=== PATIENT | male | born 1980 | race Caucasian/White ===

== ENCOUNTER 2016-07-05 08:09 | Emergency (ER) | payer OTHER ==
[2016-07-05] MEDS ORDERED: ONDANSETRON 4MG/2ML VIAL (J2405) As Ordered ONE (09:03)
[2016-07-05] MEDS ORDERED: KETOROLAC 30 MG/ML VIAL (J1885) As Ordered ONE (09:03)
[2016-07-05 09:32] LABS: BASO % 1.3 % (0.0-1.0); EOS % 1.2 % (0.0-3.0); LARGE UNSTAINED CELL # 0.1 K/mm3 (0.0-0.4); LYMPH # 1.3 K/mm3 (1.5-4.5); LYMPH % 33.5 % (24.0-44.0); MEAN CORPUSCULAR HEMOGLOBIN 32.4 pg (27.0-33.0); MEAN CORPUSCULAR HGB CONC 34.8 g/dl (32.0-36.5); MEAN CORPUSCULAR VOLUME 93.1 fl (80.0-96.0); MONO # 0.3 K/mm3 (0.0-0.8); MONO % 7.9 % (0.0-5.0); NEUTROPHILS # 2.1 K/mm3 (1.8-7.7); PLATELET COUNT, AUTOMATED 236 k/mm3 (150-450); RED CELL DISTRIBUTION WIDTH 13.8 % (11.5-14.5); WHITE BLOOD COUNT 3.9 K/mm3 (4.0-10.0)
[2016-07-05 10:18] LABS: ALBUMIN 3.7 GM/DL (3.2-5.2); ALKALINE PHOSPHATASE 232 U/L (45-117); ALT/SGPT 48 U/L (12-78); ANION GAP 12 MEQ/L (8-16); AST/SGOT 62 U/L (15-37); BILIRUBIN,DIRECT 0.3 MG/DL (0.0-0.2); BILIRUBIN,TOTAL 0.8 MG/DL (0.2-1.0); BLOOD UREA NITROGEN 13 MG/DL (7-18); CALCIUM LEVEL 8.1 MG/DL (8.5-10.1); CARBON DIOXIDE LEVEL 26 MEQ/L (21-32); CHLORIDE LEVEL 102 MEQ/L (98-107); CREATININE FOR GFR 0.72 MG/DL (0.70-1.30); GLOMERULAR FILTRATION RATE > 60.0 (>60); GLUCOSE, FASTING 96 MG/DL (70-105); POTASSIUM SERUM 3.4 MEQ/L (3.5-5.1); SODIUM LEVEL 140 MEQ/L (136-145); TOTAL PROTEIN 7.4 GM/DL (6.4-8.2)
--- NOTE | 2016-07-05 10:36 | EDDOCDS ---
Physician Documentation [facility] Name: Bashir Reed Age: 35 yrs Sex: Male : 1980 Arrival Date: 07/05/2016 Time: 08:09 Bed I1 / M1 Private MD: Cristal Fernandez C Disposition: 07/05/16 10:25 Discharged to Home/Self Care. Impression: Nausea and vomiting, Diarrhea, unspecified. - Condition is Stable. - Discharge Instructions: Food Choices to Help Relieve Diarrhea, Adult, Diarrhea, Nausea and Vomiting. - Prescriptions for ZOFRAN ODT 4 mg - dissolve 1 tablet by ORAL route 4 times per day As needed do not chew, do not swallow whole; 10 tablet. - Medication Reconciliation form. - Follow up: Emergency Department; When: As needed. Follow up: Cristal Fernandez; When: Call to arrange an appointment; Reason: Wound/Symptom Recheck, Recheck today's complaints, Worsening of conditions, Continuance of care. - Problem is an ongoing problem. - Symptoms have improved. Historical: - Allergies: Codeine Sulfate; - Home Meds: 1. Xanax 0.5 mg Oral tab twice a day - PMHx: Anxiety; Lopez's Esophagus; - PSHx: none; - Social history: Smoking status: Patient uses tobacco products, light tobacco smoker. No barriers to communication noted, The patient speaks fluent Sami, Speaks appropriately for age. - : The pt / caregiver states he / she is not on anticoagulants. Home medication list is obtained from the patient. - Exposure Risk Screening:: None identified. Vital Signs: 07/05 08:16 BP 161 / 109; Pulse 112; Resp 16; Temp 98.7(TE); Pulse Ox 96% on R/A; Weight 68.95 kg / mlb1 152.01 lbs (R); Height 5 ft. 11 in. (180.34 cm) (R); Pain 8/10; 10:33 BP 130 / 90; Pulse 76; Resp 16; Temp 97.3; jmk 08:16 Body Mass Index 21.20 (68.95 kg, 180.34 cm) mlb1 MDM: 08:52 NS 0.9% 1000 ml IV at bolus once ordered. cc10 08:52 Ondansetron 4 mg IVP once ordered. cc10 08:52 ketorolac 30 mg IVP once ordered. cc10 08:52 IV Saline Lock ordered. cc10 08:52 Undress patient appropriately for examination ordered. cc10 08:53 Basic Metabolic Profile Ordered. EDMS 08:53 CBC with Diff Ordered. EDMS 08:53 Lipase Ordered. EDMS 08:53 Liver Profile Ordered. EDMS 08:53 Urinalysis Ordered. EDMS 08:53 NOTHING BY MOUTH+DIET ordered. EDMS 09:54 Financial registration complete. mpb 09:54 [facility] Payment Agreement was scanned into [employer] and attached to record. mpb 10:18 CBC with Diff Reviewed. cc10 10:18 Urinalysis Reviewed. cc10 10:21 Basic Metabolic Profile Reviewed. cc10 10:21 Liver Profile Reviewed. cc10 10:21 Lipase Reviewed. cc10 Administered Medications: 09:08 Drug: NS 0.9% 1000 ml Route: IV; Rate: bolus; Site: left antecubital; k 09:55 Follow up: IV Status: Completed infusion; IV Intake: 1000ml [facility] 09:08 Drug: Ondansetron 4 mg Route: IVP; Site: left antecubital; [facility] 09:40 Follow up: Response: Nausea is resolved [facility] 09:09 Drug: ketorolac 30 mg [ketorolac 30 mg/mL (1 mL) injection solution (1 mL)] Route: IVP; [facility] Site: left antecubital; 09:40 Follow up: Response: Pain is decreased [facility] Signatures: [facility] Leonel Cottrell RN RN jmk Barney, Michael B, RN RN mlb1 Nathaniel Garland PA-C PALorie cc10 Bashir Josue Reg Reg mpb The chart was reviewed and I authenticate all verbal orders and agree with the evaluation and treatment provided.Attachments: 09:54 [facility] Payment Agreement mpb MTDD
--- NOTE | 2016-07-05 10:36 | EDDOCDS ---
Nurse's Notes [facility] Name: Bashir Reed Age: 35 yrs Sex: Male : 1980 Arrival Date: 07/05/2016 Time: 08:09 Bed I1 / M1 Private MD: Cristal Fernandez C Diagnosis: Nausea and vomiting;Diarrhea, unspecified Presentation: 07/05 08:13 Presenting complaint: Patient states: Epigastric pain with N/V began Sunday. Risk mlb1 factors: the patient reports not having a history of previous torsion. Adult Sepsis Screening: The patient does not have new or worsening altered mentation. Patient's respiratory rate is less than 22. Systolic blood pressure is greater than 100. Patient has a qSOFA score of 0- Negative Sepsis Screen. Suicide/Homicide risk assessment- the patient denies having any suicidal and/or homicidal ideations and does not present with any other emotional, behavioral or mental health complaints. Status: Patient is not a tanker service attendant or dependent. Transition of care: patient was not received from another setting of care. 08:13 Acuity: ISABELA Level 3 mlb1 08:13 Method Of Arrival: Walkin/Carried/Asstd mlb1 Triage Assessment: 08:16 General: Appears in no apparent distress, Behavior is appropriate for age, cooperative. mlb1 Pain: Location: epigastric area Pain currently is 8 out of 10 on a pain scale. HIV screening NA for this visit Offered previously. GI: Reports nausea, vomiting. Historical: - Allergies: Codeine Sulfate; - Home Meds: 1. Xanax 0.5 mg Oral tab twice a day - PMHx: Anxiety; Lopez's Esophagus; - PSHx: none; - Social history: Smoking status: Patient uses tobacco products, light tobacco smoker. No barriers to communication noted, The patient speaks fluent Malaysian, Speaks appropriately for age. - : The pt / caregiver states he / she is not on anticoagulants. Home medication list is obtained from the patient. - Exposure Risk Screening:: None identified. Screenin:09 Screening information is obtained from the patient. Fall risk: No risks identified. jmk Assistance ADL's: requires no assistance with activities of daily living. Abuse/DV Screen: The patient / caregiver reports he/she is: not in a situation that causes fear, pain or injury. Nutritional screening: No deficits noted. Advance Directives: Currently, there is no health care proxy. There is no active DNR order. There is no living will. There is no Power of Manager Patient. Advance directive information has not previously been placed in an [facility] medical record. Further advance directive information is declined. home support is adequate. Assessment: 09:09 General: Appears in no apparent distress, face slightly flushed. skin warm and dry jmk color satisfactory. Moist pink oral mucosa. Abd soft and non distended with bowel sounds present x 4. Increased pain with palpation about umbilicus.. GI: Abdomen is flat, non- distended Bowel sounds present X 4 quads. Abd is soft X 4 quads Abd is tender to palpation in umbilical area. 09:40 General: Appears. k 10:32 General: Appears without nausea . reports less pain clear liquids encouraged. cautioned k regarding blood pressure. receptive to discharge. Vital Signs: 08:16 BP 161 / 109; Pulse 112; Resp 16; Temp 98.7(TE); Pulse Ox 96% on R/A; Weight 68.95 kg ml (R); Height 5 ft. 11 in. (180.34 cm) (R); Pain 8/10; 10:33 BP 130 / 90; Pulse 76; Resp 16; Temp 97.3; jmk 08:16 Body Mass Index 21.20 (68.95 kg, 180.34 cm) [facility] Vitals: 08:16 Log In Time: July 05, 2016 at 08:05. b1 ED Course: 08:11 Patient visited by David Colon. mm15 08:11 Cristal Fernandez is Private Physician. mm15 08:11 Patient moved to Waiting mm15 08:13 Patient visited by Basihr Hogue, RN. mlb1 08:14 Triage Initiated mlb1 08:17 Patient visited by Bashir Hogue, RN. mlb1 08:21 Patient moved to I1 / M1 mlb1 08:42 Nathaniel Garland PA-C is PHCP. cc10 08:42 Mauricio Huerta MD is Attending Physician. cc10 08:47 Patient visited by Nathaniel Garland PA-C. cc10 08:47 Patient visited by Nathaniel Garland PA-C. cc10 09:07 Basic Metabolic Profile Sent. jmk 09:07 CBC with Diff Sent. jmk 09:07 Lipase Sent. jmk 09:07 Liver Profile Sent. jmk 09:07 Urinalysis Sent. jmk 09:09 The patient / caregiver is instructed regarding the plan of care and ED course. jmk 09:09 Inserted saline lock: 20 gauge in left antecubital area. jmk 09:54 [facility] [place] Agreement was scanned into [employer] and attached to record. mpb 10:25 Cristal Fernandez is Referral Physician. cc10 10:33 Discontinued lock intact, bleeding controlled, pressure dressing applied, No jmk redness/swelling at site. No procedures done that require assistance. Administered Medications: 09:08 Drug: NS 0.9% 1000 ml Route: IV; Rate: bolus; Site: left antecubital; jmk 09:55 Follow up: IV Status: Completed infusion; IV Intake: 1000ml k 09:08 Drug: Ondansetron 4 mg Route: IVP; Site: left antecubital; k 09:40 Follow up: Response: Nausea is resolved jmk 09:09 Drug: ketorolac 30 mg [ketorolac 30 mg/mL (1 mL) injection solution (1 mL)] Route: IVP; [facility] Site: left antecubital; 09:40 Follow up: Response: Pain is decreased jmk Intake: 09:55 IV: 1000.00ml; Total: 1000.00ml. [facility] Order Results: Lab Order: Basic Metabolic Profile; SPEC'M 07/05/16 09:52 Test: GLUCOSE, FASTING; Value: 96; Range: 70-105; Units: MG/DL; Status: F Test: BLOOD UREA NITROGEN; Value: 13; Range: 7-18; Units: MG/DL; Status: F Test: CREATININE FOR GFR; Value: 0.72; Range: 0.70-1.30; Units: MG/DL; Status: F Test: GLOMERULAR FILTRATION RATE; Value: > 60.0; Range: >60; Status: F Test: SODIUM LEVEL; Value: 140; Range: 136-145; Units: MEQ/L; Status: F Test: POTASSIUM SERUM; Value: 3.4; Range: 3.5-5.1; Abnormal: Below low normal; Units: MEQ/L; Status: F Test: CHLORIDE LEVEL; Value: 102; Range: 98-107; Units: MEQ/L; Status: F Test: CARBON DIOXIDE LEVEL; Value: 26; Range: 21-32; Units: MEQ/L; Status: F Test: ANION GAP; Value: 12; Range: 8-16; Units: MEQ/L; Status: F Test: CALCIUM LEVEL; Value: 8.1; Range: 8.5-10.1; Abnormal: Below low normal; Units: MG/DL; Status: F Test Note: ; Units are mL/min/1.73 m2 Chronic Kidney Disease Staging per NKF: Stage I & II GFR >=60 Normal to Mildly Decreased Stage III GFR 30-59 Moderately Decreased Stage IV GFR 15-29 Severely Decreased Stage V GFR <15 Very Little GFR Left ESRD GFR <15 on OUT PATIENT THERAPIST Lab Order: CBC with Diff; SPEC'M 07/05/16 09:00 Test: WHITE BLOOD COUNT; Value: 3.9; Range: 4.0-10.0; Abnormal: Below low normal; Units: K/mm3; Status: F Test: RED BLOOD COUNT; Value: 4.58; Range: 4.30-6.10; Units: M/mm3; Status: F Test: HEMOGLOBIN; Value: 14.8; Range: 14.0-18.0; Units: g/dl; Status: F Test: HEMATOCRIT; Value: 42.6; Range: 42.0-52.0; Units: %; Status: F Test: MEAN CORPUSCULAR VOLUME; Value: 93.1; Range: 80.0-96.0; Units: fl; Status: F Test: MEAN CORPUSCULAR HEMOGLOBIN; Value: 32.4; Range: 27.0-33.0; Units: pg; Status: F Test: MEAN CORPUSCULAR HGB CONC; Value: 34.8; Range: 32.0-36.5; Units: g/dl; Status: F Test: RED CELL DISTRIBUTION WIDTH; Value: 13.8; Range: 11.5-14.5; Units: %; Status: F Test: PLATELET COUNT, AUTOMATED; Value: 236; Range: 150-450; Units: k/mm3; Status: F Test: NEUTROPHILS %; Value: 53.0; Range: 36.0-66.0; Units: %; Status: F Test: LYMPH %; Value: 33.5; Range: 24.0-44.0; Units: %; Status: F Test: MONO %; Value: 7.9; Range: 0.0-5.0; Abnormal: Above high normal; Units: %; Status: F Test: EOS %; Value: 1.2; Range: 0.0-3.0; Units: %; Status: F Test: BASO %; Value: 1.3; Range: 0.0-1.0; Abnormal: Above high normal; Units: %; Status: F Test: LARGE UNSTAINED CELL %; Value: 3.0; Range: 0.0-4.0; Units: %; Status: F Test: NEUTROPHILS #; Value: 2.1; Range: 1.8-7.7; Units: K/mm3; Status: F Test: LYMPH #; Value: 1.3; Range: 1.5-4.5; Abnormal: Below low normal; Units: K/mm3; Status: F Test: MONO #; Value: 0.3; Range: 0.0-0.8; Units: K/mm3; Status: F Test: EOS #; Value: 0.0; Range: 0.0-0.50; Units: K/mm3; Status: F Test: BASO #; Value: 0.0; Range: 0.0-0.2; Units: K/mm3; Status: F Test: LARGE UNSTAINED CELL #; Value: 0.1; Range: 0.0-0.4; Units: K/mm3; Status: F Lab Order: Lipase; SPEC'M 07/05/16 09:52 Test: LIPASE; Value: 204; Range: 73-393; Units: U/L; Status: F Lab Order: Liver Profile; SPEC'M 07/05/16 09:52 Test: AST/SGOT; Value: 62; Range: 15-37; Abnormal: Above high normal; Units: U/L; Status: F Test: ALT/SGPT; Value: 48; Range: 12-78; Units: U/L; Status: F Test: ALKALINE PHOSPHATASE; Value: 232; Range: 45-117; Abnormal: Above high normal; Units: U/L; Status: F Test: BILIRUBIN,TOTAL; Value: 0.8; Range: 0.2-1.0; Units: MG/DL; Status: F Test: BILIRUBIN,DIRECT; Value: 0.3; Range: 0.0-0.2; Abnormal: Above high normal; Units: MG/DL; Status: F Test: TOTAL PROTEIN; Value: 7.4; Range: 6.4-8.2; Units: GM/DL; Status: F Test: ALBUMIN; Value: 3.7; Range: 3.2-5.2; Units: GM/DL; Status: F Test: ALBUMIN/GLOBULIN RATIO; Value: 1.00; Range: 1.00-1.93; Status: F Lab Order: Urinalysis; SPEC'M 07/05/16 09:00 Test: APPEARANCE, URINE; Value: HAZY; Range: CLEAR; Status: F Test: COLOR, URINE; Value: NEETU; Range: YELLOW; Status: F Test: PH,URINE; Value: 5.0; Range: 5.0-9.0; Units: UNITS; Status: F Test: SPECIFIC GRAVITY URINE AUTO; Value: 1.031; Range: 1.002-1.035; Status: F Test: PROTEIN, URINE AUTO; Value: 2+; Range: NEGATIVE; Abnormal: Above high normal; Units: mg/dL; Status: F Test: GLUCOSE, URINE (UA) AUTO; Value: NEGATIVE; Range: NEGATIVE; Units: mg/dL; Status: F Test: KETONE, URINE AUTO; Value: TRACE; Range: NEGATIVE; Abnormal: Above high normal; Units: mg/dL; Status: F Test: UROBILINOGEN, URINE AUTO; Value: 0.2; Range: 0.0-2.0; Units: mg/dL; Status: F Test: BILIRUBIN, URINE AUTO; Value: 1+; Range: NEGATIVE; Abnormal: Above high normal; Status: F Test: NITRITE, URINE AUTO; Value: NEGATIVE; Range: NEGATIVE; Status: F Test: LEUKOCYTE ESTERASE, URINE AUTO; Value: NEGATIVE; Range: NEGATIVE; Status: F Test: BLOOD, URINE BLOOD; Value: NEGATIVE; Range: NEGATIVE; Status: F Test: WBC, URINE AUTO; Value: 2; Range: 0-3; Units: /HPF; Status: F Test: RBC, URINE AUTO; Value: 1; Range: 0-3; Units: /HPF; Status: F Test: BACTERIA, URINE AUTO; Value: NEGATIVE; Range: NEGATIVE; Status: F Test: SQUAMOUS EPITHELIAL CELL UR AU; Value: 0; Range: 0-6; Units: /HPF; Status: F Test: MUCUS, URINE; Value: MODERATE; Range: NEGATIVE; Status: F Test: HYALINE CAST, URINE AUTO; Value: 0; Range: 0-1; Units: /LPF; Status: F Test: AMORPHOUS SEDIMENT; Value: SMALL; Range: NEGATIVE; Abnormal: Above high normal; Status: F Outcome: 10:25 Discharge ordered by Provider. cc10 10:33 Discharge Assessment: Patient awake, alert and oriented x 3. No cognitive and/or k functional deficits noted. Patient verbalized understanding of disposition instructions. patient administered narcotics - no. The following High Risk Discharge criteria are identified: None. Discharged to home ambulatory. Condition: good. Discharge instructions given to patient, Instructed on discharge instructions, follow up and referral plans. medication usage, Demonstrated understanding of instructions, medications, Pt was receptive of discharge instructions/ teaching. Prescriptions given X 1, Work note provided to patient. No special radiology studies were completed. Property :Personal belongings accompany Pt. 10:35 Patient left the ED. [facility] Signatures: Leonel Cottrell,RN RN Bashir Miranda RN RN mlDavid Hernandez mm15 Nathaniel Garland PA-C PALorie cc10 Bashir Josue, Reg Reg mpb MTDD
--- NOTE | 2016-07-07 11:36 | EDDOCDS ---
Physician Documentation [facility] Name: Bashir Reed Age: 35 yrs Sex: Male : 1980 Arrival Date: 07/05/2016 Time: 08:09 Bed I1 / M1 Private MD: Cristal Fernandez C Disposition: 07/05/16 10:25 Discharged to Home/Self Care. Impression: Nausea and vomiting, Diarrhea, unspecified. - Condition is Stable. - Discharge Instructions: Food Choices to Help Relieve Diarrhea, Adult, Diarrhea, Nausea and Vomiting. - Prescriptions for ZOFRAN ODT 4 mg - dissolve 1 tablet by ORAL route 4 times per day As needed do not chew, do not swallow whole; 10 tablet. - Medication Reconciliation form. - Follow up: Emergency Department; When: As needed. Follow up: Cristal Fernandez; When: Call to arrange an appointment; Reason: Wound/Symptom Recheck, Recheck today's complaints, Worsening of conditions, Continuance of care. - Problem is an ongoing problem. - Symptoms have improved. Historical: - Allergies: Codeine Sulfate; - Home Meds: 1. Xanax 0.5 mg Oral tab twice a day - PMHx: Anxiety; Lopez's Esophagus; - PSHx: none; - Social history: Smoking status: Patient uses tobacco products, light tobacco smoker. No barriers to communication noted, The patient speaks fluent Syriac, Speaks appropriately for age. - : The pt / caregiver states he / she is not on anticoagulants. Home medication list is obtained from the patient. - Exposure Risk Screening:: None identified. Vital Signs: 07/05 08:16 BP 161 / 109; Pulse 112; Resp 16; Temp 98.7(TE); Pulse Ox 96% on R/A; Weight 68.95 kg / mlb1 152.01 lbs (R); Height 5 ft. 11 in. (180.34 cm) (R); Pain 8/10; 10:33 BP 130 / 90; Pulse 76; Resp 16; Temp 97.3; jmk 08:16 Body Mass Index 21.20 (68.95 kg, 180.34 cm) mlb1 MDM: 08:52 NS 0.9% 1000 ml IV at bolus once ordered. cc10 08:52 Ondansetron 4 mg IVP once ordered. cc10 08:52 ketorolac 30 mg IVP once ordered. cc10 08:52 IV Saline Lock ordered. cc10 08:52 Undress patient appropriately for examination ordered. cc10 08:53 Basic Metabolic Profile Ordered. EDMS 08:53 CBC with Diff Ordered. EDMS 08:53 Lipase Ordered. EDMS 08:53 Liver Profile Ordered. EDMS 08:53 Urinalysis Ordered. EDMS 08:53 NOTHING BY MOUTH+DIET ordered. EDMS 09:54 Financial registration complete. b 09:54 [facility] Payment Agreement was scanned into [employer] and attached to record. mpb 10:18 CBC with Diff Reviewed. cc10 10:18 Urinalysis Reviewed. cc10 10:21 Basic Metabolic Profile Reviewed. cc10 10:21 Liver Profile Reviewed. cc10 10:21 Lipase Reviewed. cc 14:03 T-Sheet-- Draft Copy was scanned into [employer] and attached to record. gb Administered Medications: 09:08 Drug: NS 0.9% 1000 ml Route: IV; Rate: bolus; Site: left antecubital; [facility] 09:55 Follow up: IV Status: Completed infusion; IV Intake: 1000ml [facility] 09:08 Drug: Ondansetron 4 mg Route: IVP; Site: left antecubital; [facility] 09:40 Follow up: Response: Nausea is resolved [facility] 09:09 Drug: ketorolac 30 mg [ketorolac 30 mg/mL (1 mL) injection solution (1 mL)] Route: IVP; [facility] Site: left antecubital; 09:40 Follow up: Response: Pain is decreased [facility] Signatures: Dispatcher [employer] EDKS Leonel Cottrell RN RN Tonya Navarrete, Reg Reg gb Bashir Hogue RN RN mlb1 Nathaniel Garland, PA-C PA-C cc10 Bashir Josue, Reg Reg mpb The chart was reviewed and I authenticate all verbal orders and agree with the evaluation and treatment provided.Attachments: 09:54 [facility] Payment Agreement [facility] 14:03 T-Sheet-- Draft Copy gb Chart Complete MTDD
--- NOTE | 2016-07-07 11:36 | EDDOCDS ---
Physician Documentation [facility] Name: Bashir Reed Age: 35 yrs Sex: Male : 1980 Arrival Date: 07/05/2016 Time: 08:09 Bed I1 / M1 Private MD: Cristal Fernandez C Disposition: 07/05/16 10:25 Discharged to Home/Self Care. Impression: Nausea and vomiting, Diarrhea, unspecified. - Condition is Stable. - Discharge Instructions: Food Choices to Help Relieve Diarrhea, Adult, Diarrhea, Nausea and Vomiting. - Prescriptions for ZOFRAN ODT 4 mg - dissolve 1 tablet by ORAL route 4 times per day As needed do not chew, do not swallow whole; 10 tablet. - Medication Reconciliation form. - Follow up: Emergency Department; When: As needed. Follow up: Cristal Fernandez; When: Call to arrange an appointment; Reason: Wound/Symptom Recheck, Recheck today's complaints, Worsening of conditions, Continuance of care. - Problem is an ongoing problem. - Symptoms have improved. Historical: - Allergies: Codeine Sulfate; - Home Meds: 1. Xanax 0.5 mg Oral tab twice a day - PMHx: Anxiety; Lopez's Esophagus; - PSHx: none; - Social history: Smoking status: Patient uses tobacco products, light tobacco smoker. No barriers to communication noted, The patient speaks fluent Tajik, Speaks appropriately for age. - : The pt / caregiver states he / she is not on anticoagulants. Home medication list is obtained from the patient. - Exposure Risk Screening:: None identified. Vital Signs: 07/05 08:16 BP 161 / 109; Pulse 112; Resp 16; Temp 98.7(TE); Pulse Ox 96% on R/A; Weight 68.95 kg / mlb1 152.01 lbs (R); Height 5 ft. 11 in. (180.34 cm) (R); Pain 8/10; 10:33 BP 130 / 90; Pulse 76; Resp 16; Temp 97.3; jmk 08:16 Body Mass Index 21.20 (68.95 kg, 180.34 cm) mlb1 MDM: 08:52 NS 0.9% 1000 ml IV at bolus once ordered. cc10 08:52 Ondansetron 4 mg IVP once ordered. cc10 08:52 ketorolac 30 mg IVP once ordered. cc10 08:52 IV Saline Lock ordered. cc10 08:52 Undress patient appropriately for examination ordered. cc10 08:53 Basic Metabolic Profile Ordered. EDMS 08:53 CBC with Diff Ordered. EDMS 08:53 Lipase Ordered. EDMS 08:53 Liver Profile Ordered. EDMS 08:53 Urinalysis Ordered. EDMS 08:53 NOTHING BY MOUTH+DIET ordered. EDMS 09:54 Financial registration complete. b 09:54 [facility] Payment Agreement was scanned into [employer] and attached to record. mpb 10:18 CBC with Diff Reviewed. cc10 10:18 Urinalysis Reviewed. cc10 10:21 Basic Metabolic Profile Reviewed. cc10 10:21 Liver Profile Reviewed. cc10 10:21 Lipase Reviewed. cc 14:03 T-Sheet-- Draft Copy was scanned into [employer] and attached to record. gb Administered Medications: 09:08 Drug: NS 0.9% 1000 ml Route: IV; Rate: bolus; Site: left antecubital; [facility] 09:55 Follow up: IV Status: Completed infusion; IV Intake: 1000ml [facility] 09:08 Drug: Ondansetron 4 mg Route: IVP; Site: left antecubital; [facility] 09:40 Follow up: Response: Nausea is resolved [facility] 09:09 Drug: ketorolac 30 mg [ketorolac 30 mg/mL (1 mL) injection solution (1 mL)] Route: IVP; [facility] Site: left antecubital; 09:40 Follow up: Response: Pain is decreased [facility] Signatures: Dispatcher [employer] EDTN Leonel Cottrell RN RN Tonya Navarrete, Reg Reg gb Bashir Hogue RN RN mlb1 Nathaniel Garland, PA-C PA-C cc10 Bashir Josue, Reg Reg mpb The chart was reviewed and I authenticate all verbal orders and agree with the evaluation and treatment provided.Attachments: 09:54 [facility] Payment Agreement [facility] 14:03 T-Sheet-- Draft Copy gb Chart Complete MTDD
--- NOTE | 2016-07-07 11:36 | EDDOCDS ---
Nurse's Notes [facility] Name: Bashir Reed Age: 35 yrs Sex: Male : 1980 Arrival Date: 07/05/2016 Time: 08:09 Bed I1 / M1 Private MD: Cristal Fernandez C Diagnosis: Nausea and vomiting;Diarrhea, unspecified Presentation: 07/05 08:13 Presenting complaint: Patient states: Epigastric pain with N/V began Sunday. Risk mlb1 factors: the patient reports not having a history of previous torsion. Adult Sepsis Screening: The patient does not have new or worsening altered mentation. Patient's respiratory rate is less than 22. Systolic blood pressure is greater than 100. Patient has a qSOFA score of 0- Negative Sepsis Screen. Suicide/Homicide risk assessment- the patient denies having any suicidal and/or homicidal ideations and does not present with any other emotional, behavioral or mental health complaints. Status: Patient is not a servicer or dependent. Transition of care: patient was not received from another setting of care. 08:13 Acuity: ISABELA Level 3 mlb1 08:13 Method Of Arrival: Walkin/Carried/Asstd mlb1 Triage Assessment: 08:16 General: Appears in no apparent distress, Behavior is appropriate for age, cooperative. mlb1 Pain: Location: epigastric area Pain currently is 8 out of 10 on a pain scale. HIV screening NA for this visit Offered previously. GI: Reports nausea, vomiting. Historical: - Allergies: Codeine Sulfate; - Home Meds: 1. Xanax 0.5 mg Oral tab twice a day - PMHx: Anxiety; Lopez's Esophagus; - PSHx: none; - Social history: Smoking status: Patient uses tobacco products, light tobacco smoker. No barriers to communication noted, The patient speaks fluent Niuean, Speaks appropriately for age. - : The pt / caregiver states he / she is not on anticoagulants. Home medication list is obtained from the patient. - Exposure Risk Screening:: None identified. Screenin:09 Screening information is obtained from the patient. Fall risk: No risks identified. jmk Assistance ADL's: requires no assistance with activities of daily living. Abuse/DV Screen: The patient / caregiver reports he/she is: not in a situation that causes fear, pain or injury. Nutritional screening: No deficits noted. Advance Directives: Currently, there is no health care proxy. There is no active DNR order. There is no living will. There is no Power of Jewel Inspector. Advance directive information has not previously been placed in an [facility] medical record. Further advance directive information is declined. home support is adequate. Assessment: 09:09 General: Appears in no apparent distress, face slightly flushed. skin warm and dry jmk color satisfactory. Moist pink oral mucosa. Abd soft and non distended with bowel sounds present x 4. Increased pain with palpation about umbilicus.. GI: Abdomen is flat, non- distended Bowel sounds present X 4 quads. Abd is soft X 4 quads Abd is tender to palpation in umbilical area. 09:40 General: Appears. k 10:32 General: Appears without nausea . reports less pain clear liquids encouraged. cautioned k regarding blood pressure. receptive to discharge. Vital Signs: 08:16 BP 161 / 109; Pulse 112; Resp 16; Temp 98.7(TE); Pulse Ox 96% on R/A; Weight 68.95 kg ml (R); Height 5 ft. 11 in. (180.34 cm) (R); Pain 8/10; 10:33 BP 130 / 90; Pulse 76; Resp 16; Temp 97.3; jmk 08:16 Body Mass Index 21.20 (68.95 kg, 180.34 cm) [facility] Vitals: 08:16 Log In Time: July 05, 2016 at 08:05. b1 ED Course: 08:11 Patient visited by David Colon. mm15 08:11 Cristal Fernandez is Private Physician. mm15 08:11 Patient moved to Waiting mm15 08:13 Patient visited by Bashir Hogue, RN. mlb1 08:14 Triage Initiated mlb1 08:17 Patient visited by Bashir Hogue, RN. mlb1 08:21 Patient moved to I1 / M1 mlb1 08:42 Nathaniel Garland PA-C is PHCP. cc10 08:42 Mauricio Huerta MD is Attending Physician. cc10 08:47 Patient visited by Nathaniel Garland PA-C. cc10 08:47 Patient visited by Nathaniel Garland PA-C. cc10 09:07 Basic Metabolic Profile Sent. jmk 09:07 CBC with Diff Sent. jmk 09:07 Lipase Sent. jmk 09:07 Liver Profile Sent. jmk 09:07 Urinalysis Sent. jmk 09:09 The patient / caregiver is instructed regarding the plan of care and ED course. jmk 09:09 Inserted saline lock: 20 gauge in left antecubital area. jmk 09:54 [facility] [place] was scanned into [employer] [facility] and attached to record. mpb 10:25 Cristal Fernandez is Referral Physician. cc10 10:33 Discontinued lock intact, bleeding controlled, pressure dressing applied, No jmk redness/swelling at site. No procedures done that require assistance. 14:03 T-Sheet-- Draft Copy was scanned into [employer] and attached to record. gb Administered Medications: 09:08 Drug: NS 0.9% 1000 ml Route: IV; Rate: bolus; Site: left antecubital; jmk 09:55 Follow up: IV Status: Completed infusion; IV Intake: 1000ml k 09:08 Drug: Ondansetron 4 mg Route: IVP; Site: left antecubital; jmk 09:40 Follow up: Response: Nausea is resolved jmk 09:09 Drug: ketorolac 30 mg [ketorolac 30 mg/mL (1 mL) injection solution (1 mL)] Route: IVP; [facility] Site: left antecubital; 09:40 Follow up: Response: Pain is decreased [facility] Intake: 09:55 IV: 1000.00ml; Total: 1000.00ml. [facility] Order Results: Lab Order: Basic Metabolic Profile; SPEC'M 07/05/16 09:52 Test: GLUCOSE, FASTING; Value: 96; Range: 70-105; Units: MG/DL; Status: F Test: BLOOD UREA NITROGEN; Value: 13; Range: 7-18; Units: MG/DL; Status: F Test: CREATININE FOR GFR; Value: 0.72; Range: 0.70-1.30; Units: MG/DL; Status: F Test: GLOMERULAR FILTRATION RATE; Value: > 60.0; Range: >60; Status: F Test: SODIUM LEVEL; Value: 140; Range: 136-145; Units: MEQ/L; Status: F Test: POTASSIUM SERUM; Value: 3.4; Range: 3.5-5.1; Abnormal: Below low normal; Units: MEQ/L; Status: F Test: CHLORIDE LEVEL; Value: 102; Range: 98-107; Units: MEQ/L; Status: F Test: CARBON DIOXIDE LEVEL; Value: 26; Range: 21-32; Units: MEQ/L; Status: F Test: ANION GAP; Value: 12; Range: 8-16; Units: MEQ/L; Status: F Test: CALCIUM LEVEL; Value: 8.1; Range: 8.5-10.1; Abnormal: Below low normal; Units: MG/DL; Status: F Test Note: ; Units are mL/min/1.73 m2 Chronic Kidney Disease Staging per NKF: Stage I & II GFR >=60 Normal to Mildly Decreased Stage III GFR 30-59 Moderately Decreased Stage IV GFR 15-29 Severely Decreased Stage V GFR <15 Very Little GFR Left ESRD GFR <15 on PROFILER Lab Order: CBC with Diff; SPEC'M 07/05/16 09:00 Test: WHITE BLOOD COUNT; Value: 3.9; Range: 4.0-10.0; Abnormal: Below low normal; Units: K/mm3; Status: F Test: RED BLOOD COUNT; Value: 4.58; Range: 4.30-6.10; Units: M/mm3; Status: F Test: HEMOGLOBIN; Value: 14.8; Range: 14.0-18.0; Units: g/dl; Status: F Test: HEMATOCRIT; Value: 42.6; Range: 42.0-52.0; Units: %; Status: F Test: MEAN CORPUSCULAR VOLUME; Value: 93.1; Range: 80.0-96.0; Units: fl; Status: F Test: MEAN CORPUSCULAR HEMOGLOBIN; Value: 32.4; Range: 27.0-33.0; Units: pg; Status: F Test: MEAN CORPUSCULAR HGB CONC; Value: 34.8; Range: 32.0-36.5; Units: g/dl; Status: F Test: RED CELL DISTRIBUTION WIDTH; Value: 13.8; Range: 11.5-14.5; Units: %; Status: F Test: PLATELET COUNT, AUTOMATED; Value: 236; Range: 150-450; Units: k/mm3; Status: F Test: NEUTROPHILS %; Value: 53.0; Range: 36.0-66.0; Units: %; Status: F Test: LYMPH %; Value: 33.5; Range: 24.0-44.0; Units: %; Status: F Test: MONO %; Value: 7.9; Range: 0.0-5.0; Abnormal: Above high normal; Units: %; Status: F Test: EOS %; Value: 1.2; Range: 0.0-3.0; Units: %; Status: F Test: BASO %; Value: 1.3; Range: 0.0-1.0; Abnormal: Above high normal; Units: %; Status: F Test: LARGE UNSTAINED CELL %; Value: 3.0; Range: 0.0-4.0; Units: %; Status: F Test: NEUTROPHILS #; Value: 2.1; Range: 1.8-7.7; Units: K/mm3; Status: F Test: LYMPH #; Value: 1.3; Range: 1.5-4.5; Abnormal: Below low normal; Units: K/mm3; Status: F Test: MONO #; Value: 0.3; Range: 0.0-0.8; Units: K/mm3; Status: F Test: EOS #; Value: 0.0; Range: 0.0-0.50; Units: K/mm3; Status: F Test: BASO #; Value: 0.0; Range: 0.0-0.2; Units: K/mm3; Status: F Test: LARGE UNSTAINED CELL #; Value: 0.1; Range: 0.0-0.4; Units: K/mm3; Status: F Lab Order: Lipase; SPEC'M 07/05/16 09:52 Test: LIPASE; Value: 204; Range: 73-393; Units: U/L; Status: F Lab Order: Liver Profile; SPEC'M 07/05/16 09:52 Test: AST/SGOT; Value: 62; Range: 15-37; Abnormal: Above high normal; Units: U/L; Status: F Test: ALT/SGPT; Value: 48; Range: 12-78; Units: U/L; Status: F Test: ALKALINE PHOSPHATASE; Value: 232; Range: 45-117; Abnormal: Above high normal; Units: U/L; Status: F Test: BILIRUBIN,TOTAL; Value: 0.8; Range: 0.2-1.0; Units: MG/DL; Status: F Test: BILIRUBIN,DIRECT; Value: 0.3; Range: 0.0-0.2; Abnormal: Above high normal; Units: MG/DL; Status: F Test: TOTAL PROTEIN; Value: 7.4; Range: 6.4-8.2; Units: GM/DL; Status: F Test: ALBUMIN; Value: 3.7; Range: 3.2-5.2; Units: GM/DL; Status: F Test: ALBUMIN/GLOBULIN RATIO; Value: 1.00; Range: 1.00-1.93; Status: F Lab Order: Urinalysis; SPEC'M 07/05/16 09:00 Test: APPEARANCE, URINE; Value: HAZY; Range: CLEAR; Status: F Test: COLOR, URINE; Value: NEETU; Range: YELLOW; Status: F Test: PH,URINE; Value: 5.0; Range: 5.0-9.0; Units: UNITS; Status: F Test: SPECIFIC GRAVITY URINE AUTO; Value: 1.031; Range: 1.002-1.035; Status: F Test: PROTEIN, URINE AUTO; Value: 2+; Range: NEGATIVE; Abnormal: Above high normal; Units: mg/dL; Status: F Test: GLUCOSE, URINE (UA) AUTO; Value: NEGATIVE; Range: NEGATIVE; Units: mg/dL; Status: F Test: KETONE, URINE AUTO; Value: TRACE; Range: NEGATIVE; Abnormal: Above high normal; Units: mg/dL; Status: F Test: UROBILINOGEN, URINE AUTO; Value: 0.2; Range: 0.0-2.0; Units: mg/dL; Status: F Test: BILIRUBIN, URINE AUTO; Value: 1+; Range: NEGATIVE; Abnormal: Above high normal; Status: F Test: NITRITE, URINE AUTO; Value: NEGATIVE; Range: NEGATIVE; Status: F Test: LEUKOCYTE ESTERASE, URINE AUTO; Value: NEGATIVE; Range: NEGATIVE; Status: F Test: BLOOD, URINE BLOOD; Value: NEGATIVE; Range: NEGATIVE; Status: F Test: WBC, URINE AUTO; Value: 2; Range: 0-3; Units: /HPF; Status: F Test: RBC, URINE AUTO; Value: 1; Range: 0-3; Units: /HPF; Status: F Test: BACTERIA, URINE AUTO; Value: NEGATIVE; Range: NEGATIVE; Status: F Test: SQUAMOUS EPITHELIAL CELL UR AU; Value: 0; Range: 0-6; Units: /HPF; Status: F Test: MUCUS, URINE; Value: MODERATE; Range: NEGATIVE; Status: F Test: HYALINE CAST, URINE AUTO; Value: 0; Range: 0-1; Units: /LPF; Status: F Test: AMORPHOUS SEDIMENT; Value: SMALL; Range: NEGATIVE; Abnormal: Above high normal; Status: F Outcome: 10:25 Discharge ordered by Provider. cc10 10:33 Discharge Assessment: Patient awake, alert and oriented x 3. No cognitive and/or jmk functional deficits noted. Patient verbalized understanding of disposition instructions. patient administered narcotics - no. The following High Risk Discharge criteria are identified: None. Discharged to home ambulatory. Condition: good. Discharge instructions given to patient, Instructed on discharge instructions, follow up and referral plans. medication usage, Demonstrated understanding of instructions, medications, Pt was receptive of discharge instructions/ teaching. Prescriptions given X 1, Work note provided to patient. No special radiology studies were completed. Property :Personal belongings accompany Pt. 10:35 Patient left the ED. oscar Signatures: Leonel Cottrell,RN RN Tonya Navarrete, Reg Reg gb Bashir Hogue, RN RN mlb1 David Colon mm15 Nathaniel Garland, PA-C PA-C cc10 Bashir Josue, Reg Reg mpb Chart Complete MTDD
== END 2016-07-05 10:35 | disposition home or self-care (01) ==
LOC: M ED 08:09
DX: R11.2 Nausea with vomiting, unspecified (principal); R19.7 Diarrhea, unspecified; K21.9 Gastro-esophageal reflux disease without esophagitis; F41.9 Anxiety disorder, unspecified; K22.70 Barrett's esophagus without dysplasia; F17.210 Nicotine dependence, cigarettes, uncomplicated; Z88.5 Allergy status to narcotic agent; Z79.899 Other long term (current) drug therapy
CPT/HCPCS: 80048; 80076; 81001; 83690; 85025; 96361; 96374; 96375; 99284; J1885; J2405

== ENCOUNTER 2017-02-15 08:29 | Outpatient (CLI) | payer OTHER ==
[~2017-02-15] VITALS: Ht 180.3 cm; Wt 73.5 kg
[~2017-02-15 08:29] MED LIST: ALPR0.5T3 PO; BREO1INH INH; MONT10TA2 PO; MULTCAP12 PO; PANT40TA2 PO; PEPT262T2 PO
[2017-02-15] MEDS ORDERED: NS 1,000 ML IV ONE (08:45)
[2017-02-15] MEDS ORDERED: PROPOFOL 200 MG/20 ML VIAL As Ordered ONE ×2 (09:03→09:09)
[2017-02-15] MEDS ORDERED: LIDOCAINE 2% INJ 100 MG/5 ML SDV (FOR ANES.) As Ordered ONE (09:03)
--- NOTE | 2017-02-15 09:20 | ROOR ---
Patient Name: Bashir Reed Procedure Date: 02/15/2017 9:01 AM Date of : 1980 Age: 36 Room: [facility] Gender: Male Note Status: Finalized Procedure: Upper GI endoscopy Indications: Epigastric abdominal pain Providers: Carlton Redd Jr, MD Referring MD: CHEVY ELLIOTT Requesting Provider: Medicines: Propofol per Anesthesia Complications: No immediate complications. Procedure: Pre-Anesthesia Assessment: - Prior to the procedure, a History and Physical was performed, and patient medications and allergies were reviewed. The patient is competent. The risks and benefits of the procedure and the sedation options and risks were discussed with the patient. All questions were answered and informed consent was obtained. Patient identification and proposed procedure were verified by the physician and the nurse in the pre-procedure area and in the procedure room. Mental Status Examination: alert and oriented. Airway Examination: normal oropharyngeal airway and neck mobility. Respiratory Examination: clear to auscultation. CV Examination: normal. ASA Grade Assessment: II - A patient with mild systemic disease. After reviewing the risks and benefits, the patient was deemed in satisfactory condition to undergo the procedure. The anesthesia plan was to use moderate sedation / analgesia (conscious sedation). Immediately prior to administration of medications, the patient was re-assessed for adequacy to receive sedatives. The heart rate, respiratory rate, oxygen saturations, blood pressure, adequacy of pulmonary ventilation, and response to care were monitored throughout the procedure. The physical status of the patient was re-assessed after the procedure. The Endoscope was introduced through the mouth, and advanced to the second part of duodenum. The upper GI endoscopy was accomplished without difficulty. The patient tolerated the procedure well. Findings: The upper third of the esophagus, middle third of the esophagus and lower third of the esophagus were normal. [place]-colored mucosa was present. The maximum longitudinal extent of these esophageal mucosal changes was 0.3 cm in length. Biopsies were taken with a cold forceps for histology. The gastroesophageal junction, cardia, gastric fundus and gastric body were normal. Diffuse moderate inflammation characterized by congestion (edema), erythema, friability and granularity was found in the gastric antrum and in the prepyloric region of the stomach. Biopsies were taken with a cold forceps for histology. The duodenal bulb, first portion of the duodenum and second portion of the duodenum were normal. Impression: - Normal upper third of esophagus, middle third of esophagus and lower third of esophagus. - Loveland-colored mucosa suspicious for Lopez's esophagus. Biopsied. - Normal gastroesophageal junction, cardia, gastric fundus and gastric body. - Gastritis. Biopsied. - Normal duodenal bulb, first portion of the duodenum and second portion of the duodenum. Recommendation: - Discharge patient to home (ambulatory). - Return to my office in 1 month. Carlton Redd MD Carlton Redd Jr, MD 02/15/2017 9:19:59 AM This report has been signed electronically. Number of Addenda: 0 Note Initiated On: 02/15/2017 9:01 AM Estimated Blood Loss: Estimated blood loss: none.
[2017-02-15 09:33] VITALS: BP 130/94
== END 2017-02-15 09:35 | disposition home or self-care (01) ==
LOC: M OPP 08:29
PROVIDERS: ATTEND Surgery
DX: R10.13 Epigastric pain (principal); K22.70 Barrett's esophagus without dysplasia; K29.70 Gastritis, unspecified, without bleeding; K22.8 Other specified diseases of esophagus; K31.89 Other diseases of stomach and duodenum; K21.9 Gastro-esophageal reflux disease without esophagitis; R12 Heartburn; F41.9 Anxiety disorder, unspecified; J44.9 Chronic obstructive pulmonary disease, unspecified; M54.9 Dorsalgia, unspecified; K76.9 Liver disease, unspecified; F10.20 Alcohol dependence, uncomplicated; F12.20 Cannabis dependence, uncomplicated; R06.83 Snoring; F17.210 Nicotine dependence, cigarettes, uncomplicated; Z88.5 Allergy status to narcotic agent; Z79.899 Other long term (current) drug therapy; Z87.19 Personal history of other diseases of the digestive system; Z80.8 Family history of malignant neoplasm of other organs or systems

== ENCOUNTER → 2017-02-28 | Outpatient (CLI) | payer OTHER ==
[~2017-02-28] MED LIST changes: +ACAM0.05 PO; +CARA1TAB6 PO; +CIPR500T3 PO; +SUCR10SS PO; +TRAZO50TA PO; +ZANT1TAB PO; +ZOFR4TAB3 PO; +ZYRT10CA PO
[2017-02-28 08:43] LABS: BASO % 1.1 % (0.0-1.0); EOS # 0.1 K/mm3 (0.0-0.50); EOS % 1.4 % (0.0-3.0); LYMPH # 1.5 K/mm3 (1.5-4.5); MEAN CORPUSCULAR HEMOGLOBIN 31.9 pg (27.0-33.0); MEAN CORPUSCULAR HGB CONC 33.3 g/dl (32.0-36.5); MEAN CORPUSCULAR VOLUME 95.7 fl (80.0-96.0); MONO # 0.3 K/mm3 (0.0-0.8); MONO % 6.5 % (0.0-5.0); NEUTROPHILS # 2.1 K/mm3 (1.8-7.7); NEUTROPHILS % 53.5 % (36.0-66.0); RED CELL DISTRIBUTION WIDTH 13.1 % (11.5-14.5); WHITE BLOOD COUNT 3.9 K/mm3 (4.0-10.0)
[2017-02-28 09:10] LABS: ALBUMIN/GLOBULIN RATIO 0.98 (1.00-1.93); ALKALINE PHOSPHATASE 111 U/L (45-117); ALT/SGPT 42 U/L (12-78); ANION GAP 7 MEQ/L (8-16); AST/SGOT 38 U/L (15-37); BILIRUBIN,TOTAL 0.5 MG/DL (0.2-1.0); BLOOD UREA NITROGEN 10 MG/DL (7-18); CALCIUM LEVEL 9.3 MG/DL (8.5-10.1); CARBON DIOXIDE LEVEL 31 MEQ/L (21-32); CHLORIDE LEVEL 103 MEQ/L (98-107); CREATININE FOR GFR 0.77 MG/DL (0.70-1.30); FERRITIN 72 NG/ML (26-388); GLOMERULAR FILTRATION RATE > 60.0 (>60); GLUCOSE, FASTING 82 MG/DL (70-105); POTASSIUM SERUM 3.7 MEQ/L (3.5-5.1); SODIUM LEVEL 141 MEQ/L (136-145); TOTAL PROTEIN 8.1 GM/DL (6.4-8.2)
[2017-02-28 10:05] LABS: VITAMIN B12 LEVEL 554 PG/ML
[2017-03-01 09:33] LABS: ALBUMIN 4.78 GM/DL (3.29-5.55); GAMMA GLOBULIN % 15.5 % (11.1-18.8)
[2017-03-02 00:07] LABS: Lyme Disease IgG/IgM Antibodie <0.91 ISR (0.00-0.90); Lyme Disease IgM Ab Quantitati <0.80 index (0.00-0.79)
== END ==
LOC: M LAB 07:50
PROVIDERS: ATTEND Physician Assistant Medical
DX: R53.83 Other fatigue (principal)

== ENCOUNTER 2017-03-13 10:58 | Emergency (ER) | payer OTHER ==
[~2017-03-13] VITALS: Ht 180.3 cm; Wt 65.0 kg
[~2017-03-13 10:58] MED LIST changes: -ACAM0.05 PO; -CARA1TAB6 PO; -CIPR500T3 PO; -SUCR10SS PO; -TRAZO50TA PO; -ZANT1TAB PO; -ZOFR4TAB3 PO; -ZYRT10CA PO
[2017-03-13] MEDS ORDERED: CARA1TAB6 PO (11:10)
[2017-03-13 11:41] LABS: BASO % 0.7 % (0.0-1.0); EOS % 0.3 % (0.0-3.0); IMMATURE GRANULOCYTE % 0.2 % (0-0); LYMPH # 1.4 10^3/uL (1.5-4.5); LYMPH % 24.4 % (24.0-44.0); MEAN CORPUSCULAR HEMOGLOBIN 31.9 pg (27.0-33.0); MEAN CORPUSCULAR HGB CONC 35.4 g/dl (32.0-36.5); MEAN CORPUSCULAR VOLUME 90.1 fl (80.0-96.0); MONO # 0.6 10^3/uL (0.0-0.8); MONO % 10.7 % (0.0-5.0); NEUTROPHILS # 3.7 10^3/uL (1.8-7.7); NEUTROPHILS % 63.7 % (36.0-66.0); PLATELET COUNT, AUTOMATED 242 10^3/uL (150-450); RED CELL DISTRIBUTION WIDTH 12.5 % (11.5-14.5); WHITE BLOOD COUNT 5.9 10^3/uL (4.0-10.0)
[2017-03-13 12:12] LABS: ANION GAP 9 MEQ/L (8-16); BLOOD UREA NITROGEN 10 MG/DL (7-18); CALCIUM LEVEL 9.4 MG/DL (8.5-10.1); CARBON DIOXIDE LEVEL 28 MEQ/L (21-32); CHLORIDE LEVEL 101 MEQ/L (98-107); CREATININE FOR GFR 0.95 MG/DL (0.70-1.30); GLOMERULAR FILTRATION RATE > 60.0 (>60); GLUCOSE, FASTING 97 MG/DL (70-105); SODIUM LEVEL 138 MEQ/L (136-145)
[2017-03-13] MEDS ORDERED: PANTOPRAZOLE 40MG INJ (PROTONIX) (C9113) IV ONE (12:30)
[2017-03-13] MEDS ORDERED: GI COCKTAIL 50ML BTL(HYOSCYAMINE/MAALOX/LIDOCAINE VISCOUS)(1:3:1) PO ONE (12:30)
[2017-03-13] MEDS ORDERED: ONDANSETRON 4MG/2ML VIAL (J2405) IV ONE (12:30)
[2017-03-13] MEDS ORDERED: NS 1,000 ML IV ONE (12:30)
[2017-03-13 12:55] LABS: ALKALINE PHOSPHATASE 109 U/L (45-117); ALT/SGPT 61 U/L (12-78); AMYLASE 65 U/L (25-115); AST/SGOT 84 U/L (15-37); BILIRUBIN,DIRECT 0.7 MG/DL (0.0-0.2); BILIRUBIN,TOTAL 2.3 MG/DL (0.2-1.0)
[2017-03-13 12:56] LABS: INR 0.96
[2017-03-13] MEDS ORDERED: POTASSIUM CHLORIDE 10 MEQ SR TABLET PO ONE (13:30)
[2017-03-13] MEDS ORDERED: ZOFR4TAB3 PO (14:31)
[2017-03-13 14:51] VITALS: BP 131/85
--- NOTE | 2017-03-13 15:50 | REP ---
ABDOMINAL SERIES: Supine and erect views of the abdomen demonstrate no free air or evidence for obstruction. No dilated small bowel loops are seen. Some tiny radiodensities are scattered throughout the colon. Visualized osseous structures appear unremarkable. An accompanying view of the chest demonstrates no acute infiltrate. The heart is normal in size and the mediastinal silhouette is unremarkable. IMPRESSION: Negative abdominal series. Signed by Mendoza Benjamin MD 03/13/2017 05:24 P
--- NOTE | 2017-03-14 09:25 | ECGEPIP ---
Stationary ECG Study [facility] - ED Test Date: 2017-03-13 Pat Name: SANA ALONSO Department: Room: - Gender: M Superintendent [place]: [place] : 1980 Requested By: Mauricio Hamilton Order Number: [id number] Reading MD: Vanessa Perez Measurements Intervals [place] Rate: 69 P: 57 CT: 135 QRS: 61 QRSD: 102 T: 61 QT: 422 QTc: 454 Interpretive Statements SINUS RHYTHM WITH MARKED SINUS ARRHYTHMIA MINIMAL VOLTAGE CRITERIA FOR LVH, CONSIDER NORMAL VARIANT SIMILAR 11/10/14 Electronically Signed On 03-14-2017 9:25:14 EDT by Vanessa Perez
== END 2017-03-13 14:53 | disposition home or self-care (01) ==
LOC: EDBD 10:58 → M ED 10:58
DX: E87.6 Hypokalemia (principal); K29.70 Gastritis, unspecified, without bleeding; F17.200 Nicotine dependence, unspecified, uncomplicated; Z79.899 Other long term (current) drug therapy; Z88.5 Allergy status to narcotic agent; Z91.010 Allergy to peanuts; E73.9 Lactose intolerance, unspecified
CPT/HCPCS: 74022; 80048; 80076; 81001; 82150; 82550; 82553; 83690; 85025; 85610; 93005; 93041; 94760; 96361; 96374; 96375; 99285; C9113; J2405

== ENCOUNTER 2017-03-15 19:18 | Inpatient (IN) | payer OTHER ==
[~2017-03-15] VITALS: Ht 180.3 cm; Wt 62.0 kg
[~2017-03-15 19:18] MED LIST changes: +CARA1TAB6 PO; +ZOFR4TAB3 PO
[2017-03-15] MEDS ORDERED: ZYRT10CA PO (19:31)
[2017-03-15 20:40] LABS: MEAN CORPUSCULAR HEMOGLOBIN 31.5 pg (27.0-33.0); MEAN CORPUSCULAR HGB CONC 34.1 g/dl (32.0-36.5); MEAN CORPUSCULAR VOLUME 92.4 fl (80.0-96.0); RED CELL DISTRIBUTION WIDTH 12.6 % (11.5-14.5); WHITE BLOOD COUNT 6.7 10^3/uL (4.0-10.0)
[2017-03-15] MEDS ORDERED: MONT10TA2 PO (20:51)
[2017-03-15] MEDS ORDERED: ZOFR4TAB3 PO (20:51)
[2017-03-15] MEDS ORDERED: ZANT1TAB PO (20:51)
[2017-03-15] MEDS ORDERED: SUCR10SS PO (20:51)
[2017-03-15] MEDS ORDERED: CIPR500T3 PO (20:51)
[2017-03-15 21:01] LABS: ALBUMIN/GLOBULIN RATIO 1.03 (1.00-1.93); ALKALINE PHOSPHATASE 103 U/L (45-117); ALT/SGPT 57 U/L (12-78); ANION GAP 8 MEQ/L (8-16); AST/SGOT 52 U/L (15-37); BILIRUBIN,DIRECT 0.2 MG/DL (0.0-0.2); BILIRUBIN,TOTAL 0.4 MG/DL (0.2-1.0); BLOOD UREA NITROGEN 5 MG/DL (7-18); CALCIUM LEVEL 8.7 MG/DL (8.5-10.1); CARBON DIOXIDE LEVEL 29 MEQ/L (21-32); CHLORIDE LEVEL 108 MEQ/L (98-107); CREATININE FOR GFR 0.82 MG/DL (0.70-1.30); GLOMERULAR FILTRATION RATE > 60.0 (>60); GLUCOSE, FASTING 92 MG/DL (70-105); METHADONE URINE NEGATIVE (NEGATIVE); POTASSIUM SERUM 3.6 MEQ/L (3.5-5.1); SODIUM LEVEL 145 MEQ/L (136-145); TOTAL PROTEIN 7.9 GM/DL (6.4-8.2)
[2017-03-15] MEDS ORDERED: ACETAMINOPHEN 325 MG TAB PO ONE (22:00)
[2017-03-16] MEDS ORDERED: OXAZEPAM 15 MG CAP PO ONE (08:45)
[2017-03-16 12:34] VITALS: BP 136/91
[2017-03-16] MEDS ORDERED: MAALOX 30 ML SUSP *UDC PO PRN (14:00)
[2017-03-16] MEDS ORDERED: MOM 30ML SUSPENSION UDC PO PRN (14:00)
[2017-03-16] MEDS ORDERED: ACETAMINOPHEN TAB 650MG DOSE (2X325MG) PO PRN (14:00)
[2017-03-16] MEDS ORDERED: LORazepam 2 MG TAB PO PRN (14:00)
[2017-03-16] MEDS ORDERED: ONDANSETRON 4 MG TAB (S0181) PO PRN (14:00)
[2017-03-16] MEDS: NICOTINE 21MG/24HR 1 EA TRANSDERMAL TD SCH (15:11)
[2017-03-16] MEDS: FOLIC ACID 1 MG TAB PO SCH (15:11)
[2017-03-16] MEDS: FAMOTIDINE 20 MG TAB PO SCH (15:11)
[2017-03-16] MEDS: MONTELUKAST 10 MG TAB PO SCH (15:12)
[2017-03-16] MEDS: THIAMINE 100 MG TAB PO SCH (15:12)
[2017-03-16] MEDS: MULTIVITAMINS/MINERALS THERAP 1 TAB PO SCH (15:12)
[2017-03-16 15:14] VITALS: BP 132/96
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
[2017-03-16 16:22] VITALS: BP 147/91
[2017-03-16] MEDS: SUCRALFATE SUSP 1GM/10ML UD PO SCH (17:32)
[2017-03-16 18:00] VITALS: BP 138/84
[2017-03-16] MEDS: CIPROFLOXACIN 500 MG TAB PO SCH (18:00)
[2017-03-16] MEDS: PANTOPRAZOLE 40MG TAB (PROTONIX) PO SCH (20:59)
[2017-03-16] MEDS: ALPRAZolam 0.5 MG TAB PO SCH (20:59)
[2017-03-16] MEDS: traZODone 50 MG TAB PO PRN (21:00)
[2017-03-17] MEDS: CIPROFLOXACIN 500 MG TAB PO SCH ×2 (06:18→17:58)
[2017-03-17 06:37] VITALS: BP 123/72
[2017-03-17] MEDS: SUCRALFATE SUSP 1GM/10ML UD PO SCH ×3 (06:45→16:37)
[2017-03-17] MEDS: ALPRAZolam 0.5 MG TAB PO SCH (08:09)
[2017-03-17] MEDS: FAMOTIDINE 20 MG TAB PO SCH (08:09)
[2017-03-17] MEDS: PANTOPRAZOLE 40MG TAB (PROTONIX) PO SCH ×2 (08:09→22:13)
[2017-03-17] MEDS: FOLIC ACID 1 MG TAB PO SCH (08:09)
[2017-03-17] MEDS: MONTELUKAST 10 MG TAB PO SCH (08:09)
[2017-03-17] MEDS: MULTIVITAMINS/MINERALS THERAP 1 TAB PO SCH (08:09)
[2017-03-17] MEDS: THIAMINE 100 MG TAB PO SCH ×2 (08:09→22:13)
[2017-03-17] MEDS: NICOTINE 21MG/24HR 1 EA TRANSDERMAL TD SCH (08:09)
[2017-03-17 08:40] VITALS: BP 140/72
[2017-03-17] MEDS ORDERED: CETIRIZINE (ZyrTEC) 10 MG TAB PO SCH (09:00)
[2017-03-17] MEDS: LORazepam 2 MG TAB PO SCH ×4 (10:04→22:14)
--- NOTE | 2017-03-17 11:11 | MHIPNPDOC ---
[facility] Progress Note Progress Note DATE OF SERVICE: 03/17/17 HISTORY: Patient is a 36-year-old male, who was brought in by state police after called by his . He says they were arguing and he had 8 shots of "Rumplemints" (like Schnapps). Pt reports recent dx of stomach cancer and he and were arguing because she does not believe he has cancer. He says she is "weak" and can't deal with it and wants a divorce. She also does not like his drinking. They were 7 years ago and she has 1 son. Pt claims the [place] attributes the pt with telling him to "pull out his holster and shoot him." Pt denies being suicidal or ever saying that. Pt denies any previous suicidal actions or psychiatric admissions.Collateral information will need to be obtained. pt asking for discharge early next week. Denies he needs treatment for alcoholism. On [facility] protocol. Sees Kassidy Saeed for PCP who prescribes Xanax 0.5 mg bid. Pt also uses Cannabis once a week or so. Denies other substance use. DUI 2 years ago. Alcohol on admission 0.379. VITAL SIGNS: See below. NEW TEST RESULTS: . CURRENT MEDICATIONS: See below. MENTAL STATUS EXAMINATION: Patient is a 36-year old male, who is alert, cooperative, dressed in hospital clothes, shaky, fair eye contact, slightly disheveled Speech: Is Spontaneous and fluent, normal in rate, tone and volume Language skills are Fair Thought processes including: coherent, goal directed. Thought content: Anxious thoughts about his illnss (Lopez's esophagus), about his not being able to deal with his illness. Abstract reasoning, and computation: Not assessed at this time Description of associations: Good Description of abnormal or psychotic thoughts: Denies AV hallucinations, denies thought delusions, denies SI, denies HI. Judgment: Poor Insight: Limited. Orientation: Oriented x 3 Recent and remote memory: Intact Attention span and concentration: Fair. Language: Fair Fund of knowledge: Adequate Mood: Sad/anxious Affect: Sad, congruent with mood DIAGNOSES: 1. . 2. . 3. . ASSESSMENT:Patient is feeling very vulnerable since he was told he could have cancer. He says he still has to go to another doctor to get another opinion about his because he still is not sure if he has it or he doesn't. 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 He says he's done with it. He says he is not sure if he is going to be able to stay out of cigarettes.. He has been a drinker and he wants to stay away from alcohol. He is gaining insight into his illness. MANAGEMENT PLAN: Will continue on the same medications. Will encourage him to attend groups and will provide support. TIME SPENT: 30 minutes. Vital Signs Vital Signs Date Time Temp Pulse Resp B/P (MAP) Pulse Ox O2 Delivery O2 Flow Rate FiO2 03/17/17 08:40 72 140/72 03/17/17 08:40 18 03/17/17 06:37 97.5 03/16/17 12:34 99 Room Air Current Medications Current Medications Acetaminophen (Tylenol Tab) 650 mg Q6HP PRN PO HEADACHE or DISCOMFORT; Start at 14:00; Stop 04/15/17 at 13:59 Al Hydrox/Mg Hydrox/Simethicone (Mylanta) 30 ml Q4HP PRN PO HEARTBURN/ INDIGESTION; Start 03/16/17 at 14:00; Stop 04/15/17 at 13:59 Alprazolam (Xanax) 0.5 mg BID PO Last administered on 03/17/17 08:09; Start at 21:00; Stop 03/23/17 at 20:59 Cetirizine HCl (ZyrTEC) 10 mg DAILY PO ; Start 03/17/17 at 09:00; Stop 03/17/17 at 09:01; Status DC Cetirizine HCl (ZyrTEC) 10 mg DAILY@2100 PO ; Start 03/17/17 at 21:00; Stop at 20:59 Ciprofloxacin (Cipro) 500 mg BID@06,18 PO Last administered on 03/17/17 06:18 ; Start 03/16/17 at 18:00; Stop 03/19/17 at 20:00 Famotidine (Pepcid) 20 mg DAILY PO Last administered on 03/17/17 08:09; Start 03/16/17 at 09:00; Stop 04/15/17 at 08:59 Folic Acid (Folic Acid) 1 mg DAILY PO Last administered on 03/17/17 08:09; Start 03/16/17 at 09:00; Stop 04/15/17 at 08:59 Home Med (Med Rec Complete!) ASDIRECTED XX ; Start 03/15/17 at 21:00; Stop at 21:00; Status DC Lorazepam (Ativan) 1 mg Q4H PO ; Start 03/19/17 at 10:00; Stop 03/20/17 at 06:01 Lorazepam (Ativan) 1 mg Q6H PO ; Start 03/20/17 at 12:00; Stop 03/21/17 at 06:01 Lorazepam (Ativan) 2 mg ASDIRECTED PRN PO SEE PROTOCOL Last administered on 16:25; Start 03/16/17 at 14:00; Stop 03/23/17 at 13:59 Lorazepam (Ativan) 2 mg Q4H PO Last administered on 03/17/17 10:04; Start at 10:00; Stop 03/18/17 at 06:01 Lorazepam (Ativan) 2 mg Q6H PO ; Start 03/18/17 at 12:00; Stop 03/19/17 at 06:01 Magnesium Hydroxide (Milk Of Magnesia) 30 ml DAILYPRN PRN PO CONSTIPATION; Start 03/16/17 at 14:00; Stop 04/15/17 at 13:59 Montelukast Sodium (Singulair) 10 mg DAILY PO Last administered on 03/17/17 08 :09; Start 03/16/17 at 09:00; Stop 04/15/17 at 08:59 Multivitamins (Theragram-M) 1 tab DAILY PO Last administered on 03/17/17 08:09 ; Start 03/16/17 at 09:00; Stop 04/15/17 at 08:59 Nicotine (Nicoderm Cq 21mg) 1 patch DAILY TD Last administered on 03/17/17 08: 09; Start 03/16/17 at 09:00; Stop 04/15/17 at 08:59 Ondansetron HCl (Zofran) 4 mg Q4HP PRN PO NAUSEA OR VOMITING; Start 03/16/17 at 14:00; Stop 04/15/17 at 13:59 Pantoprazole Sodium (Protonix) 40 mg BID PO Last administered on 03/17/17 08: 09; Start 03/16/17 at 21:00; Stop 04/15/17 at 20:59 Sucralfate (Carafate Suspension) 1 gm AC PO Last administered on 03/17/17 06: 45; Start 03/16/17 at 17:30; Stop 04/15/17 at 17:29 Thiamine HCl (Thiamine HCl) 100 mg BID PO Last administered on 03/17/17 08:09 ; Start 03/16/17 at 15:00; Stop 03/19/17 at 14:59 Trazodone HCl (Desyrel) 50 mg QHSP PRN PO INSOMNIA Last administered on 21:00; Start 03/16/17 at 14:00; Stop 04/15/17 at 13:59 Allergies Coded Allergies: Peanut (Unverified Allergy, Severe, THROAT SWELLING, 03/16/17) Per Pt, THROAT SWELLING W/ANY TYPE OF PEANUT PRODUCTS. Lactose Intolerance (GI) (Unverified Allergy, Unknown, 03/16/17) Codeine (Unverified Adverse Reaction, Unknown, diaphoretic, passes out, ) VERNON MICHEL MD Mar 17, 2017 11:11
[2017-03-17 12:40] VITALS: BP 118/84
[2017-03-17 13:58] VITALS: BP 130/96
[2017-03-17 18:00] VITALS: BP 138/86
[2017-03-17 21:00] VITALS: BP 134/78
[2017-03-17] MEDS: traZODone 50 MG TAB PO PRN (22:13)
[2017-03-17] MEDS: CETIRIZINE (ZyrTEC) 10 MG TAB PO SCH (22:14)
[2017-03-18] MEDS: LORazepam 2 MG TAB PO SCH ×4 (02:00→18:01)
[2017-03-18] MEDS: CIPROFLOXACIN 500 MG TAB PO SCH ×2 (06:04→18:01)
[2017-03-18 06:19] VITALS: BP 144/78
[2017-03-18] MEDS: SUCRALFATE SUSP 1GM/10ML UD PO SCH ×3 (06:56→16:22)
[2017-03-18] MEDS: PANTOPRAZOLE 40MG TAB (PROTONIX) PO SCH ×2 (08:08→21:17)
[2017-03-18] MEDS: NICOTINE 21MG/24HR 1 EA TRANSDERMAL TD SCH (08:08)
[2017-03-18] MEDS: MULTIVITAMINS/MINERALS THERAP 1 TAB PO SCH (08:08)
[2017-03-18] MEDS: MONTELUKAST 10 MG TAB PO SCH (08:08)
[2017-03-18] MEDS: THIAMINE 100 MG TAB PO SCH ×2 (08:08→21:17)
[2017-03-18] MEDS: FAMOTIDINE 20 MG TAB PO SCH (08:09)
[2017-03-18] MEDS: FOLIC ACID 1 MG TAB PO SCH (08:09)
[2017-03-18] MEDS ORDERED: INFLUENZA QUADRIVALENT PF VACCINE 0.5ML SYRINGE (90686) IM ONE (09:00)
[2017-03-18] MEDS ORDERED: hydrOXYzine 50 MG TAB PO ONE (12:00)
[2017-03-18] MEDS ORDERED: LORazepam 1 MG TAB PO PRN (13:30)
[2017-03-18] MEDS: ACAMPROSATE CALCIUM 333 MG TABLET (CAMPRAL) PO SCH ×2 (15:49→21:16)
[2017-03-18 18:00] VITALS: BP 129/95
--- NOTE | 2017-03-18 19:09 | MHIPNPDOC ---
[facility] Progress Note Progress Note DATE OF SERVICE: 03/18/17 HISTORY: Patient is a 36-year-old male, who was brought in by state police after called by his . He says they were arguing and he had 8 shots of "Rumplemints" (like Schnapps). Pt reports recent dx of stomach cancer and he and were arguing because she does not believe he has cancer. He says she is "weak" and can't deal with it and wants a divorce. She also does not like his drinking. They were 7 years ago and she has 1 son. Pt claims the [place] attributes the pt with telling him to "pull out his holster and shoot him." Pt denies being suicidal or ever saying that. Pt denies any previous suicidal actions or psychiatric admissions.Collateral information will need to be obtained. pt asking for discharge early next week. Denies he needs treatment for alcoholism. On [facility] protocol. Sees Kassidy Saeed for PCP who prescribes Xanax 0.5 mg bid. Pt also uses Cannabis once a week or so. Denies other substance use. DUI 2 years ago. Alcohol on admission 0.379. Today, 03/18/2017 patient's nurse told this poem writer that patient felt very anxious and was still a little bit shaky even when he hasn't taken his Ativan a couple of hours before. Patient told his nurse that he thought he was going to be discharged on Ativan and then she told him that no, he was not going to be discharged on this medication, because we will be substituting one substance for another one. She told him we have put him on that medication for him not to have seizures as a consequence of the alcohol withdrawals. For that reason, this poem writer modified his withdrawal protocol to 1 mg by mouth every 8 hours when necessary for anxiety to start tomorrow at noon time, because I don't know if he is going to be discharged soon and if this is the case, he will have had to interrupt the other withdrawal protocol, it is easier to have him on a when necessary basis than on a scheduled one. He was started on Campral 666 mg by mouth 3 times a day VITAL SIGNS: See below. NEW TEST RESULTS: . CURRENT MEDICATIONS: See below. MENTAL STATUS EXAMINATION: Patient is a 36-year old male, who is alert, dressed in hospital clothes, disheveled, with good eye contact Speech: Normal in rate, tone and volume Language skills are Fair Thought processes including: Intact Thought content: Continues to have anxious thoughts about his illness (Lopez' s esophagus) Abstract reasoning, and computation: Not assessed at this time Description of associations: Good Description of abnormal or psychotic thoughts: Denies AV hallucinations, denies thought delusions, denies SI, denies HI. Judgment: Poor Insight: Poor Orientation: Oriented x 3 Recent and remote memory: Intact Attention span and concentration: Fair. Language: Fair Fund of knowledge: Adequate Mood: Sad/anxious Affect: Sad, congruent with mood DIAGNOSES: 1. substance use disorder, chronic severe 2. Anxiety ASSESSMENT: Patient was upset this morning because he said he had a telephone conversation with his and this one told him she was at the bar with some friends. He told her she had to understand she couldn't keep having that life if she wanted him to stop drinking, because if she continues doing it, he will find beer and liquor around the house and this will work against him and his desire to quit drinking alcohol. He was started today on Campral 666 mg by mouth 3 times a day, hoping this will help him. MANAGEMENT PLAN: Will continue on a lower dose of Ativan as of 03-19-17 and will start Campral today, 03/18/2017. Will encourage him to attend groups and will provide support. TIME SPENT: 30 minutes. Vital Signs Vital Signs Date Time Temp Pulse Resp B/P (MAP) Pulse Ox O2 Delivery O2 Flow Rate FiO2 03/18/17 18:00 99.5 87 16 129/95 (106) 03/16/17 12:34 99 Room Air Current Medications Current Medications Acamprosate (Campral) 666 mg TID PO Last administered on 03/18/17t 15:49; Start 03/18/17 at 16:00; Stop 04/17/17 at 15:59 Acetaminophen (Tylenol Tab) 650 mg Q6HP PRN PO HEADACHE or DISCOMFORT; Start at 14:00; Stop 04/15/17 at 13:59 Al Hydrox/Mg Hydrox/Simethicone (Mylanta) 30 ml Q4HP PRN PO HEARTBURN/ INDIGESTION; Start 03/16/17 at 14:00; Stop 04/15/17 at 13:59 Alprazolam (Xanax) 0.5 mg BID PO Last administered on 03/17/17 08:09; Start at 21:00; Stop 03/17/17 at 11:29; Status DC Cetirizine HCl (ZyrTEC) 10 mg DAILY PO ; Start 03/17/17 at 09:00; Stop 03/17/17 at 09:01; Status DC Cetirizine HCl (ZyrTEC) 10 mg DAILY@2100 PO Last administered on 03/17/17 22: 14; Start 03/17/17 at 21:00; Stop 04/16/17 at 20:59 Ciprofloxacin (Cipro) 500 mg BID@,18 PO Last administered on 03/18/17 18:01 ; Start 03/16/17 at 18:00; Stop 03/19/17 at 20:00 Famotidine (Pepcid) 20 mg DAILY PO Last administered on 03/18/17 08:09; Start 03/16/17 at 09:00; Stop 04/15/17 at 08:59 Folic Acid (Folic Acid) 1 mg DAILY PO Last administered on 03/18/17 08:09; Start 03/16/17 at 09:00; Stop 04/15/17 at 08:59 Home Med (Med Rec Complete!) ASDIRECTED XX ; Start 03/15/17 at 21:00; Stop at 21:00; Status DC Lorazepam (Ativan) 1 mg Q4H PO ; Start 03/19/17 at 10:00; Stop 03/20/17 at 06:01 ; Status Cancel Lorazepam (Ativan) 1 mg Q6H PO ; Start 03/20/17 at 12:00; Stop 03/21/17 at 06:01 ; Status Cancel Lorazepam (Ativan) 1 mg Q8HP PRN PO ANXIETY; Start 03/18/17 at 13:30; Stop 03/18/17 at 13:30; Status DC Lorazepam (Ativan) 1 mg Q8HP PRN PO ANXIETY; Start 03/19/17 at 12:00; Stop 03/26/17 at 11:59 Lorazepam (Ativan) 2 mg ASDIRECTED PRN PO SEE PROTOCOL Last administered on 16:25; Start 03/16/17 at 14:00; Stop 03/17/17 at 11:13; Status DC Lorazepam (Ativan) 2 mg Q4H PO Last administered on 03/18/17 06:04; Start at 10:00; Stop 03/18/17 at 06:02; Status DC Lorazepam (Ativan) 2 mg Q6H PO Last administered on 03/18/17 18:01; Start 03/18/17 at 12:00; Stop 03/19/17 at 06:01 Magnesium Hydroxide (Milk Of Magnesia) 30 ml DAILYPRN PRN PO CONSTIPATION; Start 03/16/17 at 14:00; Stop 04/15/17 at 13:59 Montelukast Sodium (Singulair) 10 mg DAILY PO Last administered on 03/18/17 08 :08; Start 03/16/17 at 09:00; Stop 04/15/17 at 08:59 Multivitamins (Theragram-M) 1 tab DAILY PO Last administered on 03/18/17 08:08 ; Start 03/16/17 at 09:00; Stop 04/15/17 at 08:59 Nicotine (Nicoderm Cq 21mg) 1 patch DAILY TD Last administered on 03/18/17 08: 08; Start 03/16/17 at 09:00; Stop 04/15/17 at 08:59 Ondansetron HCl (Zofran) 4 mg Q4HP PRN PO NAUSEA OR VOMITING; Start 03/16/17 at 14:00; Stop 04/15/17 at 13:59 Pantoprazole Sodium (Protonix) 40 mg BID PO Last administered on 03/18/17 08: 08; Start 03/16/17 at 21:00; Stop 04/15/17 at 20:59 Sucralfate (Carafate Suspension) 1 gm AC PO Last administered on 03/18/17 16: 22; Start 03/16/17 at 17:30; Stop 04/15/17 at 17:29 Thiamine HCl (Thiamine HCl) 100 mg BID PO Last administered on 03/18/17 08:08 ; Start 03/16/17 at 15:00; Stop 03/19/17 at 14:59 Trazodone HCl (Desyrel) 50 mg QHSP PRN PO INSOMNIA Last administered on t 22:13; Start 03/16/17 at 14:00; Stop 04/15/17 at 13:59 Allergies Coded Allergies: Peanut (Unverified Allergy, Severe, THROAT SWELLING, 03/16/17) Per Pt, THROAT SWELLING W/ANY TYPE OF PEANUT PRODUCTS. Lactose Intolerance (GI) (Unverified Allergy, Unknown, 03/16/17) Codeine (Unverified Adverse Reaction, Unknown, diaphoretic, passes out, ) VERNON MICHEL MD Mar 18, 2017 19:09
[2017-03-18] MEDS: CETIRIZINE (ZyrTEC) 10 MG TAB PO SCH (21:16)
[2017-03-18] MEDS: traZODone 50 MG TAB PO PRN (21:17)
--- NOTE | 2017-03-19 00:39 | HPE ---
DATE OF ADMISSION: 03/16/2017 HISTORY OF PRESENT ILLNESS: Please refer to psychiatric history and evaluation for further details on this admission. This examination and history is intended for medical issues, which may need treatment, followup or consult on this 36-year-old male. ALLERGIES: CODEINE, LACTOSE intolerant, PEANUTS. PRIMARY CARE PROVIDER: CHEVY Schroeder. SOCIAL HISTORY: He is , but . Ethyl alcohol (EtOH): Daily, at least four beers if not more. Smokes one pack of cigarettes per day. Recreational drug use: None. PAST MEDICAL HISTORY: 1. Environmental allergies. 2. Lopez's esophagus. PAST SURGICAL HISTORY: Upper skull 11/15/2016. HOME MEDICATIONS: - Singulair 10 mg by mouth daily - Zyrtec 10 mg by mouth nightly - alprazolam 0.5 mg by mouth twice a day - Zofran 4 mg by mouth every 4 hours as needed for nausea - Protonix 40 mg by mouth daily - ranitidine 150 mg by mouth twice a day - sucralfate 1 gram by mouth three times a day - Breo Ellipta one inhalation daily LABORATORY STUDIES: EKG shows sinus rhythm with marked sinus arrhythmia. CBC was normal. Sodium 145, potassium 3.6, chloride 108, CO2 29, BUN and creatinine 5 and 0.82. AST 51, ALT normal. TSH 0.283, slightly low, will get a TSH, free T4. Urine was positive for benzodiazepines. EtOH was 0.379. REVIEW OF SYSTEMS: 10-system review was done, was unremarkable. Patient had no specific complaints. PHYSICAL EXAMINATION: 36-year-old cooperative male in no acute distress. Height 71 inches, weight 60 kg, body mass index (BMI) 18.4. Blood pressure 125/90, pulse 87, respirations 16, temperature 99. Patient is alert and oriented times three. Pupils equal and react to light. Extraocular muscles intact. Cornea and sclerae clear. Conjunctivae were normal. No facial asymmetry. Pharynx, tongue and gums pink and moist. Tongue is midline. Neck is supple without lymphadenopathy. No thyromegaly, no goiter. Carotids 2+ without bruit. Chest clear to auscultation without wheeze or retraction. Heart is regular. Abdomen is benign. Bowel sounds positive. Genitourinary/rectal: Not done. Extremities show equal strength, full range of motion. No cyanosis, clubbing or edema. Peripheral pulses equal and palpable bilaterally. Skin is warm and dry. IMPRESSION/PLAN: 1. Psychiatric plan per psychiatry. Monitor for withdrawal. 2. History of Lopez's esophagus. Continue pantoprazole, sucralfate, ranitidine. 3. Environmental allergies. Continue Singulair and Zyrtec. No other acute medical issues.
[2017-03-19] MEDS: LORazepam 2 MG TAB PO SCH ×2 (05:28)
[2017-03-19] MEDS: CIPROFLOXACIN 500 MG TAB PO SCH ×2 (05:28→18:06)
[2017-03-19 06:18] VITALS: BP 122/73
[2017-03-19] MEDS: SUCRALFATE SUSP 1GM/10ML UD PO SCH ×3 (07:08→17:09)
[2017-03-19] MEDS: MULTIVITAMINS/MINERALS THERAP 1 TAB PO SCH (08:20)
[2017-03-19] MEDS: THIAMINE 100 MG TAB PO SCH (08:20)
[2017-03-19] MEDS: NICOTINE 21MG/24HR 1 EA TRANSDERMAL TD SCH (08:20)
[2017-03-19] MEDS: FOLIC ACID 1 MG TAB PO SCH (08:20)
[2017-03-19] MEDS: FAMOTIDINE 20 MG TAB PO SCH (08:20)
[2017-03-19] MEDS: MONTELUKAST 10 MG TAB PO SCH (08:20)
[2017-03-19] MEDS: PANTOPRAZOLE 40MG TAB (PROTONIX) PO SCH ×2 (08:20→20:55)
--- NOTE | 2017-03-19 08:57 | MHIPNPDOC ---
[facility] Progress Note Progress Note DATE OF SERVICE: 03/19/17 HISTORY: day 3 of admission brought in intoxicated after arguing with . Daily alcohol use x 7 years. VITAL SIGNS: See below. NEW TEST RESULTS: CURRENT MEDICATIONS: See below. MENTAL STATUS EXAMINATION: General appearance: Patient is a 36-year old male, who is thin, below average height, dark hair, street clothes, cooperative. Speech: spontaneous. Thought processes: goal directed, no delusion. Thought content: appropriate. Abstract reasoning and computation: good. Description of associations: good. Description of abnormal or psychotic thoughts:none, no psychotic symptoms, denies SI or HI. Judgment: poor. Insight: limited. Orientation: well oriented Recent and remote memory: intact. Attention span and concentration: good. Fund of knowledge: full. Mood: "I'm not depressed" Affect: anxious DIAGNOSES: 1. substance use disorder, chronic severe 2. Anxiety 3. Depressive disorder, unspecified. ASSESSMENT: we are attempting to get KOFI's signed so we can get the necessary collateral information needed to accurately and safely make a discharge plan. Pt 's has called but CDP not available due to competing demands. In the meantime pt is visible in milieu. Mood appears good. Still not suicidal as he attested to on admission. Pt tolerating withdraw without too much difficulty. MANAGEMENT PLAN: we need to have a meeting with his if she is willing to come in so we can plan his discharge which he is seeking immediately. We also need more details as to why the police were called and if he made any suicidal statements. Notes state he has a friend he can stay with and if that is his plan that needs to be looked into as well. Is patient willing to attend inpatient or outpatient substance abuse. Decision likely to be influenced by this new diagnosis of cancer. TIME SPENT: 15 minutes. Vital Signs Vital Signs Date Time Temp Pulse Resp B/P (MAP) Pulse Ox O2 Delivery O2 Flow Rate FiO2 03/19/17 06:18 96.1 71 20 122/73 (89) 03/16/17 12:34 99 Room Air Current Medications Current Medications Acamprosate (Campral) 666 mg TID PO Last administered on 03/18/17t 21:16; Start 03/18/17 at 16:00; Stop 04/17/17 at 15:59 Acetaminophen (Tylenol Tab) 650 mg Q6HP PRN PO HEADACHE or DISCOMFORT; Start at 14:00; Stop 04/15/17 at 13:59 Al Hydrox/Mg Hydrox/Simethicone (Mylanta) 30 ml Q4HP PRN PO HEARTBURN/ INDIGESTION; Start 03/16/17 at 14:00; Stop 04/15/17 at 13:59 Alprazolam (Xanax) 0.5 mg BID PO Last administered on 03/17/17 08:09; Start at 21:00; Stop 03/17/17 at 11:29; Status DC Cetirizine HCl (ZyrTEC) 10 mg DAILY PO ; Start 03/17/17 at 09:00; Stop 03/17/17 at 09:01; Status DC Cetirizine HCl (ZyrTEC) 10 mg DAILY@2100 PO Last administered on 03/18/17 21: 16; Start 03/17/17 at 21:00; Stop 04/16/17 at 20:59 Ciprofloxacin (Cipro) 500 mg BID@,18 PO Last administered on 03/19/17 05:28 ; Start 03/16/17 at 18:00; Stop 03/19/17 at 20:00 Famotidine (Pepcid) 20 mg DAILY PO Last administered on 03/19/17 08:20; Start 03/16/17 at 09:00; Stop 04/15/17 at 08:59 Folic Acid (Folic Acid) 1 mg DAILY PO Last administered on 03/19/17 08:20; Start 03/16/17 at 09:00; Stop 04/15/17 at 08:59 Home Med (Med Rec Complete!) ASDIRECTED XX ; Start 03/15/17 at 21:00; Stop at 21:00; Status DC Lorazepam (Ativan) 1 mg Q4H PO ; Start 03/19/17 at 10:00; Stop 03/20/17 at 06:01 ; Status Cancel Lorazepam (Ativan) 1 mg Q6H PO ; Start 03/20/17 at 12:00; Stop 03/21/17 at 06:01 ; Status Cancel Lorazepam (Ativan) 1 mg Q8HP PRN PO ANXIETY; Start 03/18/17 at 13:30; Stop 03/18/17 at 13:30; Status DC Lorazepam (Ativan) 1 mg Q8HP PRN PO ANXIETY; Start 03/19/17 at 12:00; Stop 03/26/17 at 11:59 Lorazepam (Ativan) 2 mg ASDIRECTED PRN PO SEE PROTOCOL Last administered on 16:25; Start 03/16/17 at 14:00; Stop 03/17/17 at 11:13; Status DC Lorazepam (Ativan) 2 mg Q4H PO Last administered on 03/18/17 06:04; Start at 10:00; Stop 03/18/17 at 06:02; Status DC Lorazepam (Ativan) 2 mg Q6H PO Last administered on 03/19/17 05:28; Start 03/18/17 at 12:00; Stop 03/19/17 at 06:01; Status DC Magnesium Hydroxide (Milk Of Magnesia) 30 ml DAILYPRN PRN PO CONSTIPATION; Start 03/16/17 at 14:00; Stop 04/15/17 at 13:59 Montelukast Sodium (Singulair) 10 mg DAILY PO Last administered on 03/19/17 08 :20; Start 03/16/17 at 09:00; Stop 04/15/17 at 08:59 Multivitamins (Theragram-M) 1 tab DAILY PO Last administered on 03/19/17 08:20 ; Start 03/16/17 at 09:00; Stop 04/15/17 at 08:59 Nicotine (Nicoderm Cq 21mg) 1 patch DAILY TD Last administered on 03/19/17 08: 20; Start 03/16/17 at 09:00; Stop 04/15/17 at 08:59 Ondansetron HCl (Zofran) 4 mg Q4HP PRN PO NAUSEA OR VOMITING; Start 03/16/17 at 14:00; Stop 04/15/17 at 13:59 Pantoprazole Sodium (Protonix) 40 mg BID PO Last administered on 03/19/17 08: 20; Start 03/16/17 at 21:00; Stop 04/15/17 at 20:59 Sucralfate (Carafate Suspension) 1 gm AC PO Last administered on 03/19/17 07: 08; Start 03/16/17 at 17:30; Stop 04/15/17 at 17:29 Thiamine HCl (Thiamine HCl) 100 mg BID PO Last administered on 03/19/17 08:20 ; Start 03/16/17 at 15:00; Stop 03/19/17 at 14:59 Trazodone HCl (Desyrel) 50 mg QHSP PRN PO INSOMNIA Last administered on 21:17; Start 03/16/17 at 14:00; Stop 04/15/17 at 13:59 Allergies Coded Allergies: Peanut (Unverified Allergy, Severe, THROAT SWELLING, 03/16/17) Per Pt, THROAT SWELLING W/ANY TYPE OF PEANUT PRODUCTS. Lactose Intolerance (GI) (Unverified Allergy, Unknown, 03/16/17) Codeine (Unverified Adverse Reaction, Unknown, diaphoretic, passes out, ) Namita Reed Mar 19, 2017 08:57
[2017-03-19] MEDS: ACAMPROSATE CALCIUM 333 MG TABLET (CAMPRAL) PO SCH ×3 (09:49→20:54)
[2017-03-19] MEDS ORDERED: LORazepam 1 MG TAB PO SCH (10:00)
[2017-03-19] MEDS ORDERED: LORazepam 1 MG TAB PO PRN (12:00)
[2017-03-19 18:13] VITALS: BP 130/86
[2017-03-19] MEDS: CETIRIZINE (ZyrTEC) 10 MG TAB PO SCH (20:54)
[2017-03-19] MEDS: traZODone 50 MG TAB PO PRN (21:46)
[2017-03-19 21:48] VITALS: BP 130/86
[2017-03-20 06:31] VITALS: BP 118/75
[2017-03-20] MEDS: SUCRALFATE SUSP 1GM/10ML UD PO SCH (06:49)
[2017-03-20] MEDS ORDERED: ACAM0.05 PO (08:18)
[2017-03-20] MEDS ORDERED: TRAZO50TA PO (08:18)
[2017-03-20 08:21] LABS: ALBUMIN 3.9 GM/DL (3.2-5.2); ALBUMIN/GLOBULIN RATIO 1.03 (1.00-1.93); ALKALINE PHOSPHATASE 102 U/L (45-117); ALT/SGPT 112 U/L (12-78); ANION GAP 9 MEQ/L (8-16); AST/SGOT 123 U/L (15-37); BILIRUBIN,TOTAL 1.7 MG/DL (0.2-1.0); BLOOD UREA NITROGEN 7 MG/DL (7-18); CALCIUM LEVEL 9.3 MG/DL (8.5-10.1); CARBON DIOXIDE LEVEL 30 MEQ/L (21-32); CHLORIDE LEVEL 100 MEQ/L (98-107); GLOMERULAR FILTRATION RATE > 60.0 (>60); GLUCOSE, FASTING 80 MG/DL (70-105); POTASSIUM SERUM 3.5 MEQ/L (3.5-5.1); SODIUM LEVEL 139 MEQ/L (136-145); T UPTAKE 35 % (33-40); THYROXINE (T4) 12.2 UG/DL (4.5-12.0); TOTAL PROTEIN 7.7 GM/DL (6.4-8.2)
[2017-03-20] MEDS: MULTIVITAMINS/MINERALS THERAP 1 TAB PO SCH (08:23)
[2017-03-20] MEDS: FOLIC ACID 1 MG TAB PO SCH (08:23)
[2017-03-20] MEDS: ACAMPROSATE CALCIUM 333 MG TABLET (CAMPRAL) PO SCH (08:24)
[2017-03-20] MEDS: MONTELUKAST 10 MG TAB PO SCH (08:24)
[2017-03-20] MEDS: PANTOPRAZOLE 40MG TAB (PROTONIX) PO SCH (08:24)
[2017-03-20] MEDS: FAMOTIDINE 20 MG TAB PO SCH (08:24)
[2017-03-20] MEDS: NICOTINE 21MG/24HR 1 EA TRANSDERMAL TD SCH (09:00)
[2017-03-20] MEDS ORDERED: LORazepam 1 MG TAB PO SCH (12:00)
--- NOTE | 2017-03-20 16:08 | MHDSPDOC ---
[facility] Discharge Summary Discharge Summary DATE OF ADMISSION: Mar 16, 2017 at 11:21 DATE OF DISCHARGE: Mar 20, 2017 at 11:30 DISCHARGE DIAGNOSES: substance use disorder, chronic severe, Anxiety, depressive disorder unspecified. Tobacco use disorder. REASON FOR ADMISSION: pt brought to hospital after called police. pt denies making any suicidal claims or statements or threats but police say he did and father says he did. pt states he wasn't even "that drunk". BAL says otherwise. CONSULTANTS INVOLVED: na TREATMENT AND PROGRESS ON THE UNIT : initially pt was seeking discharge within a day. was brought in on Sunday and advised he would not be going home over the weekend and until we had the opportunity to gather collateral information. Pt revoked KOFI for so we were able to contact Father. Pt attended programming at least once daily. He socialized well on the unit and did not present any behavior challenges. Pt cooperated with medications and agreed to trying Campral to help him refrain from Alcohol use after discharge. He slept well and ate well. He states he was never suicidal. HOSPITAL COURSE: as above DISCHARGE ASSESSMENT: pt asked about antabuse and admits he knows he will relapse. He declined any formal SA treatment. He declined referral to [facility] for Vivitrol treatment. Pt advised of it's effectiveness. Pt feels that since his is going to divorce him he has all the more reason to go out and democrat despite his physical aliments. Father participated in discharge planning meeting and freely admits that Bashir has "a problem with alcohol" and had greatly over done the drinking the day he was brought in here. He offered to attend AA with his son but currently pt is choosing to do things his way which is to stay on Campral and see the therapist. MENTAL STATUS EXAM: General appearance: Patient is a 36-year old male, who is thin, below average height, dark hair, street clothes, cooperative. Speech: spontaneous. Thought processes: goal directed, no delusion. Thought content: appropriate. Abstract reasoning and computation: good. Description of associations: good. Description of abnormal or psychotic thoughts:none, no psychotic symptoms, denies SI or HI. Judgment: poor. Insight: limited. Orientation: well oriented Recent and remote memory: intact. Attention span and concentration: good. Fund of knowledge: full. Mood: "I'm not depressed" Affect: anxious MEDICATIONS ON DISCHARGE: - Campral for alcohol cravings. - Trazodone for insomnia. - declined nicoderm patch for discharge. PLAN/FOLLOWUP ARRANGEMENTS: [facility] for individual therapy. Kassidy Saeed for meds unless [facility] wants meds done by their clinic. MEDICAL INFORMATION: CBC was normal. Sodium 145, potassium 3.6, chloride 108, CO2 29, BUN and creatinine 5 and 0.82. AST 51, ALT normal. TSH 0.283, slightly low, will get a TSH, free T4. Urine was positive for benzodiazepines. EtOH was 0.379. REVIEW OF SYSTEMS: 10-system review was done, was unremarkable. Patient had no specific complaints. PHYSICAL EXAMINATION: 36-year-old cooperative male in no acute distress. Height 71 inches, weight 60 kg, body mass index (BMI) 18.4. Blood pressure 125/90, pulse 87, respirations 16, temperature 99. Patient is alert and oriented times three. Pupils equal and react to light. Extraocular muscles intact. Cornea and sclerae clear. Conjunctivae were normal. No facial asymmetry. Pharynx, tongue and gums pink and moist. Tongue is midline. Neck is supple without lymphadenopathy. No thyromegaly, no goiter. Carotids 2+ without bruit. Chest clear to auscultation without wheeze or retraction. Heart is regular. Abdomen is benign. Bowel sounds positive. Genitourinary/rectal: Not done. Extremities show equal strength, full range of motion. No cyanosis, clubbing or edema. Peripheral pulses equal and palpable bilaterally. Skin is warm and dry. IMPRESSION/PLAN: 1. Psychiatric plan per psychiatry. Monitor for withdrawal. 2. History of Lopez's esophagus. Continue pantoprazole, sucralfate, ranitidine. 3. Environmental allergies. Continue Singulair and Zyrtec. No other acute medical issues. DD: Hilaria Epperson NP 03/18/17 2334 DT: JESSIE 03/19/17 0022 The amount of time spent in the coordination of care for this patient was approximately 45 minutes. Vital Signs/I&Os Vital Signs Date Time Temp Pulse Resp B/P (MAP) Pulse Ox O2 Delivery O2 Flow Rate FiO2 03/20/17 06:31 97.4 90 18 118/75 (89) Room Air 03/16/17 12:34 99 Laboratory Data Labs 24H Laboratory Tests 2 03/20/17 06:46: Anion Gap 9, Glomerular Filtration Rate > 60.0, Blood Urea Nitrogen 7, Creatinine 0.80, Sodium Level 139, Potassium Level 3.5, Chloride Level 100, Carbon Dioxide Level 30, Calcium Level 9.3, Aspartate Amino Transf (AST/SGOT) 123H, Alanine Aminotransferase (ALT/SGPT) 112H, Alkaline Phosphatase 102, Total Bilirubin 1.7H, Total Protein 7.7, Albumin 3.9, Albumin/Globulin Ratio 1.03, Thyroid Stimulating Hormone (TSH) 0.960, Free Thyroxine Index 4.3H, Thyroxine ( T4) 12.2H, Triiodothyronine (T3) Uptake 35 CBC/BMP Laboratory Tests 03/20/17 06:46 Calcium Level 9.3, Aspartate Amino Transf (AST/SGOT) 123 H, Alanine Aminotransferase (ALT/SGPT) 112 H, Alkaline Phosphatase 102, Total Bilirubin 1.7 H, Total Protein 7.7, Albumin 3.9 Medications Scheduled Acamprosate Calcium (Acamprosate Calcium Dr) 333 Mg Tab, 666 MG PO TID for WITHDRAWAL SYMPTOMS for 7 Days, #42 take 2 tablets three times daily Alprazolam (Alprazolam) 0.5 Mg Tab, 0.5 MG PO BID, (Reported) Ciprofloxacin HCl (Ciprofloxacin HCl) 500 Mg Tab, 500 MG PO BID, (Reported) FILLED 03/08/17 FOR 7 DAYS Fluticasone/Vilanterol (Breo Ellipta 100-25 Mcg/INH) 1 Inh Inh, 1 PUFF INH DAILY , (Reported) Montelukast Sodium (Montelukast Sodium) 10 Mg Tab, 10 MG PO DAILY, (Reported) Pantoprazole Sodium (Pantoprazole Sodium) 40 Mg Tab, 40 MG PO BID, (Reported) Ranitidine HCl (Zantac) 150 Mg Tab, 1 TAB PO BID, (Reported) Sucralfate (Sucralfate) 1 Gm/10 Ml [place], 1 GM PO TID, (Reported) Scheduled PRN Cetirizine HCl (Zyrtec Allergy) 10 Mg Cap, 10 MG PO DAILY PRN for ALLERGIES, ( Reported) Ondansetron (Zofran Odt) 4 Mg Tab, 4 MG PO Q4H PRN for NAUSEA, (Reported) Trazodone HCl (Trazodone HCl) 50 Mg Tab, 50 MG PO QHSP PRN for INSOMNIA for 7 Days, #7 take if needed for insomnia Allergies Coded Allergies: Peanut (Unverified Allergy, Severe, THROAT SWELLING, 03/16/17) Per Pt, THROAT SWELLING W/ANY TYPE OF PEANUT PRODUCTS. Lactose Intolerance (GI) (Unverified Allergy, Unknown, 03/16/17) Codeine (Unverified Adverse Reaction, Unknown, diaphoretic, passes out, ) Namita Reed Mar 20, 2017 16:08
== END 2017-03-20 11:30 | disposition home or self-care (01) | DRG 897 ==
LOC: M ED 19:18 → M ED INP 03-16 11:21 → M PSY 03-16 12:17
PROVIDERS: ADMIT Psychiatry & Neurology Psychiatry; ATTEND Psychiatry & Neurology Psychiatry
DX: F19.94 Other psychoactive substance use, unspecified with psychoactive substance-induced mood disorder (principal); F41.9 Anxiety disorder, unspecified; F32.9 Major depressive disorder, single episode, unspecified; F17.210 Nicotine dependence, cigarettes, uncomplicated; Z79.899 Other long term (current) drug therapy; Z88.5 Allergy status to narcotic agent; Z88.8 Allergy status to other drugs, medicaments and biological substances; Z91.010 Allergy to peanuts; E73.9 Lactose intolerance, unspecified; K22.70 Barrett's esophagus without dysplasia

== ENCOUNTER 2019-03-21 09:56 | Emergency (ER) | payer OTHER ==
[~2019-03-21] VITALS: Ht 180.3 cm; Wt 65.9 kg
[2019-03-21 09:56] VITALS: BP 129/91
[~2019-03-21 09:56] MED LIST changes: +ACAM0.05 PO; +CIPR500T3 PO; -PANT40TA2 PO; +PANT40TA3 PO; +SUCR10SS PO; +TRAZ1TAB10 PO; +ZANT150T15 PO; +ZOFR4TAB14 PO; -ZOFR4TAB3 PO; +ZYRT10CA PO
[2019-03-21] MEDS ORDERED: CLAR5TAB11 PO (11:28)
== END 2019-03-21 12:02 | disposition home or self-care (01) ==
LOC: M ED 09:56
DX: I73.00 Raynaud's syndrome without gangrene (principal); F17.200 Nicotine dependence, unspecified, uncomplicated; Z88.5 Allergy status to narcotic agent; Z91.010 Allergy to peanuts; K22.70 Barrett's esophagus without dysplasia; Z79.899 Other long term (current) drug therapy

== ENCOUNTER 2020-01-15 12:30 | Day surgery (SDC) | payer BC ==
[~2020-01-15] VITALS: Ht 180.3 cm; Wt 71.7 kg
[~2020-01-15 12:30] MED LIST changes: +CLAR5TAB11 PO; +FAMO40TA3 PO; +LIDOCAINE 2% 100MG/5ML SDV (FOR ANES.) As Ordered ONE; -MONT10TA2 PO; +MONT10TA4 PO; +NON-325T5 PO; +PANT40TA29 PO; -PANT40TA3 PO; -SUCR10SS PO; +SUCR1ORA2 PO; +fentaNYL 100 MCG/2 ML INJECTION (J3010) As Ordered ONE; +propofoL 200 MG/20 ML VIAL As Ordered ONE
--- NOTE | 2020-02-25 11:31 | ROOR ---
Patient Name: Bashir Reed Procedure Date: 01/15/2020 11:37 AM Date of : 1980 Age: 39 Room: [facility] Gender: Male Note Status: Finalized Procedure: Upper GI endoscopy Indications: Suspected esophageal reflux Providers: Carlton Redd Jr, MD Referring MD: Crescencio Reis Requesting Provider: Medicines: Propofol per Anesthesia Complications: No immediate complications. Procedure: Pre-Anesthesia Assessment: - Prior to the procedure, a History and Physical was performed, and patient medications and allergies were reviewed. The patient is competent. The risks and benefits of the procedure and the sedation options and risks were discussed with the patient. All questions were answered and informed consent was obtained. Patient identification and proposed procedure were verified by the physician and the nurse in the pre-procedure area and in the procedure room. Mental Status Examination: alert and oriented. Airway Examination: normal oropharyngeal airway and neck mobility. Respiratory Examination: clear to auscultation. CV Examination: normal. ASA Grade Assessment: II - A patient with mild systemic disease. After reviewing the risks and benefits, the patient was deemed in satisfactory condition to undergo the procedure. The anesthesia plan was to use moderate sedation / analgesia (conscious sedation). Immediately prior to administration of medications, the patient was re-assessed for adequacy to receive sedatives. The heart rate, respiratory rate, oxygen saturations, blood pressure, adequacy of pulmonary ventilation, and response to care were monitored throughout the procedure. The physical status of the patient was re-assessed after the procedure. The Endoscope was introduced through the mouth, and advanced to the second part of duodenum. The upper GI endoscopy was accomplished without difficulty. The patient tolerated the procedure well. Findings: The upper third of the esophagus, middle third of the esophagus and lower third of the esophagus were normal. The cardia, gastric fundus, gastric body and pylorus were normal. Segmental mild inflammation characterized by congestion (edema), erythema, friability and granularity was found in the prepyloric region of the stomach. Biopsies were taken with a cold forceps for histology. The duodenal bulb, first portion of the duodenum and second portion of the duodenum were normal. Impression: - Normal upper third of esophagus, middle third of esophagus and lower third of esophagus. - Normal cardia, gastric fundus, gastric body and pylorus. - Gastritis. Biopsied. - Normal duodenal bulb, first portion of the duodenum and second portion of the duodenum. Recommendation: - Discharge patient to home (ambulatory). - Return to my office as previously scheduled. Carlton Redd MD Carlton Redd Jr, MD 01/15/2020 1:30:49 PM Electronically signed by Carlton Redd Jr, MD Number of Addenda: 0 Note Initiated On: 01/15/2020 11:37 AM Estimated Blood Loss: Estimated blood loss: none.
[2020-03-23] MEDS ORDERED: OMEP40CA97 PO (16:17)
== END 2020-01-15 13:19 | disposition home or self-care (01) ==
LOC: M OPP 12:30
PROVIDERS: ATTEND Surgery
DX: K29.70 Gastritis, unspecified, without bleeding (principal); F17.210 Nicotine dependence, cigarettes, uncomplicated; Z88.5 Allergy status to narcotic agent
CPT/HCPCS: 43239; 88305; J3010

== ENCOUNTER → 2020-02-11 | Outpatient (CLI) | payer BC ==
[~2020-02-11] MED LIST changes: -LIDOCAINE 2% 100MG/5ML SDV (FOR ANES.) As Ordered ONE; +OMEP40CA97 PO; -fentaNYL 100 MCG/2 ML INJECTION (J3010) As Ordered ONE; -propofoL 200 MG/20 ML VIAL As Ordered ONE
[2020-02-11 07:36] LABS: ALBUMIN 4.1 GM/DL (3.2-5.2); BILIRUBIN,DIRECT 0.4 MG/DL (0.0-0.2); BILIRUBIN,TOTAL 1.1 MG/DL (0.2-1.0); TOTAL PROTEIN 7.8 GM/DL (6.4-8.2)
[2020-02-11 07:43] LABS: INR 1.03; PROTHROMBIN TIME 13.7 SECONDS (11.8-14.0)
[2020-02-11 07:44] LABS: PARTIAL THROMBOPLASTIN TIME 25.1 SECONDS (25.0-38.4)
== END ==
LOC: M LAB 06:43
PROVIDERS: ATTEND Nurse Practitioner
DX: K62.5 Hemorrhage of anus and rectum (principal)

== ENCOUNTER → 2020-03-06 | Outpatient (CLI) | payer BC | LOC: M LABSMTC 08:23 | PROVIDERS: ATTEND Anesthesiology | DX: Z01.812 Encounter for preprocedural laboratory examination (principal); Z20.828 Contact with and (suspected) exposure to other viral communicable diseases | CPT/HCPCS: C9803; U0003 ==

== ENCOUNTER 2020-07-22 03:33 | Emergency (ER) | payer BC ==
[~2020-07-22] VITALS: Ht 180.3 cm; Wt 64.8 kg
[~2020-07-22 03:33] MED LIST changes: +ACET-838 PO; -MONT10TA4 PO; +MONT5TAB2 PO; -NON-325T5 PO
[2020-07-22 03:34] VITALS: BP 148/108
[2020-07-22] MEDS ORDERED: MONT5TAB2 (03:47)
[2020-07-22] MEDS ORDERED: OMEP-221 (03:47)
[2020-07-22] MEDS ORDERED: FAMO20TA5 (03:47)
[2020-07-22] MEDS ORDERED: SUMA50TA2 (03:47)
== END 2020-07-22 05:15 | disposition home or self-care (01) ==
LOC: M ED 03:33
DX: B34.9 Viral infection, unspecified (principal); K92.2 Gastrointestinal hemorrhage, unspecified; Z20.822 Contact with and (suspected) exposure to COVID-19; R05 Cough; R07.0 Pain in throat; R06.02 Shortness of breath; R68.83 Chills (without fever); F17.200 Nicotine dependence, unspecified, uncomplicated; F12.10 Cannabis abuse, uncomplicated; Z79.899 Other long term (current) drug therapy; Z91.010 Allergy to peanuts; Z88.5 Allergy status to narcotic agent
CPT/HCPCS: 99283; U0003

== ENCOUNTER 2020-10-11 07:40 | Emergency (ER) | payer BC ==
[~2020-10-11] VITALS: Ht 182.9 cm; Wt 65.3 kg
[~2020-10-11 07:40] MED LIST changes: -ACET-838 PO; +ACET32TAB PO; +FAMO20TA5; +MONT10TA10; +MONT10TA10 PO; -MONT5TAB2 PO; +OMEP-221; +SUMA50TA2
[2020-10-11] MEDS ORDERED: NS 500 ML IV ONE (07:50)
[2020-10-11] MEDS ORDERED: ONDANSETRON 4MG/2ML VIAL IV ONE (08:00)
[2020-10-11] MEDS ORDERED: NS 1,000 ML IV ONE (08:00)
[2020-10-11 08:24] LABS: BASO # 0.1 10^3/uL (0.0-0.2); BASO % 0.7 % (0.0-1.0); EOS % 0.3 % (0.0-3.0); HEMATOCRIT 43.7 % (42.0-52.0); HEMOGLOBIN 14.8 g/dl (13.5-17.5); LYMPH % 26.9 % (24.0-44.0); MEAN CORPUSCULAR HEMOGLOBIN 31.1 pg (27.0-33.0); MEAN CORPUSCULAR HGB CONC 33.9 g/dl (32.0-36.5); MEAN CORPUSCULAR VOLUME 91.8 fl (80.0-96.0); MONO # 0.5 10^3/uL (0.0-0.8); MONO % 5.9 % (2.0-8.0); NEUTROPHILS % 66.1 % (36.0-66.0); PLATELET COUNT, AUTOMATED 247 10^3/uL (150-450); RED BLOOD COUNT 4.76 10^6/uL (4.30-6.10); WHITE BLOOD COUNT 7.6 10^3/uL (4.0-10.0)
[2020-10-11] MEDS ORDERED: ACETAMINOPHEN 325 MG TAB PO ONE (08:25)
--- NOTE | 2020-10-11 08:29 | REP ---
INDICATION: gi bleeding - wait 10 min please. COMPARISON: Comparison chest x-ray March 13, 2017.. TECHNIQUE: Sitting AP portable chest x-ray. Single-view. FINDINGS: EKG electrodes are seen. The lungs are somewhat hyperinflated but clear. Pleural angles are sharp. Heart is not enlarged. Pulmonary vasculature is not increased. No acute bony abnormality is seen. IMPRESSION: No active disease. <Electronically signed by Arnaldo Valentin > 10/11/20 [id number]
[2020-10-11] MEDS ORDERED: POTASSIUM CHLORIDE 10 MEQ SR TABLET PO ONE (08:40)
[2020-10-11 09:14] LABS: ALBUMIN 4.3 GM/DL (3.2-5.2); ALT/SGPT 34 U/L (12-78); AMYLASE 82 U/L (25-115); BILIRUBIN,DIRECT 0.2 MG/DL (0.0-0.2); BILIRUBIN,TOTAL 0.4 MG/DL (0.2-1.0); CK-MB VALUE MASS < 1.0 NG/ML (<3.6); CPK CREATINE PHOSPHOKINASE 99 U/L (39-308); LIPASE 110 U/L (73-393); MB/CK RELATIVE INDEX 1.01 (< OR =4); TOTAL PROTEIN 7.9 GM/DL (6.4-8.2); TROPONIN I < 0.02 NG/ML (< 0.10)
[2020-10-11 09:16] LABS: INR 1.05; PARTIAL THROMBOPLASTIN TIME 24.5 SECONDS (24.2-38.5); PROTHROMBIN TIME 13.9 SECONDS (12.5-14.3)
[2020-10-11 10:00] VITALS: BP 109/61
[2020-10-11] MEDS ORDERED: ZOFR4TAB16 PO (10:03)
--- NOTE | 2020-10-11 20:05 | ECGEPIP ---
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
== END 2020-10-11 10:30 | disposition home or self-care (01) ==
LOC: M ED 07:40
DX: K92.2 Gastrointestinal hemorrhage, unspecified (principal); F41.9 Anxiety disorder, unspecified; F17.200 Nicotine dependence, unspecified, uncomplicated; F10.10 Alcohol abuse, uncomplicated; Z79.899 Other long term (current) drug therapy; Z91.010 Allergy to peanuts; Z88.5 Allergy status to narcotic agent
CPT/HCPCS: 71045; 80047; 80076; 82150; 82550; 82553; 83605; 83690; 85025; 85610; 85730; 86850; 86900; 86901; 93005; 93041; 96361; 96374; 99285; J2405

== ENCOUNTER 2020-11-29 18:19 | Emergency (ER) | payer BC ==
[~2020-11-29] VITALS: Ht 180.3 cm; Wt 64.4 kg
[~2020-11-29 18:19] MED LIST changes: +ZOFR4TAB16 PO
[2020-11-29] MEDS ORDERED: METO10TA2 PO (18:28)
[2020-11-29 19:09] LABS: BASO # 0.1 10^3/uL (0.0-0.2); BASO % 0.3 % (0.0-1.0); EOS % 0.1 % (0.0-3.0); HEMATOCRIT 41.2 % (42.0-52.0); HEMOGLOBIN 14.4 g/dl (13.5-17.5); LYMPH # 3.2 10^3/uL (1.5-5.0); LYMPH % 22.2 % (24.0-44.0); MEAN CORPUSCULAR HEMOGLOBIN 32.5 pg (27.0-33.0); MONO # 2.3 10^3/uL (0.0-0.8); MONO % 15.9 % (2.0-8.0); NEUTROPHILS # 8.8 10^3/uL (1.5-8.5); NEUTROPHILS % 61.2 % (36.0-66.0); PLATELET COUNT, AUTOMATED 219 10^3/uL (150-450); RED BLOOD COUNT 4.43 10^6/uL (4.30-6.10)
[2020-11-29 19:15] VITALS: BP 151/89
--- NOTE | 2020-11-29 19:28 | REP ---
INDICATION: CHEST PAIN. COMPARISON: 10/11/2020 TECHNIQUE: Portable FINDINGS: The technique utilized in obtaining the radiograph has magnified the cardiac silhouette and accentuated the interstitial markings. The superior mediastinal structures are midline. The cardiac silhouette is unremarkable in size, shape, and position. The diaphragmatic surfaces of the lungs are regular, and the costophrenic angles are clear. The pulmonary baig are clear. The imaged osseous structures are intact. IMPRESSION: There is no acute cardiopulmonary disease. <Electronically signed by Paul Chua > 11/29/206
[2020-11-29 19:38] LABS: WHITE BLOOD COUNT 14.4 10^3/uL (4.0-10.0)
[2020-11-29 19:40] LABS: ALBUMIN 3.8 GM/DL (3.2-5.2); ALT/SGPT 43 U/L (12-78); BILIRUBIN,DIRECT 0.4 MG/DL (0.0-0.2); BILIRUBIN,TOTAL 1.1 MG/DL (0.2-1.0); BLOOD UREA NITROGEN 6 MG/DL (7-18); CALCIUM LEVEL 8.9 MG/DL (8.5-10.1); CARBON DIOXIDE LEVEL 24 MEQ/L (21-32); CHLORIDE LEVEL 103 MEQ/L (98-107); CK-MB VALUE MASS < 1.0 NG/ML (<3.6); CPK CREATINE PHOSPHOKINASE 138 U/L (39-308); CREATININE FOR GFR 0.91 MG/DL (0.70-1.30); GLOMERULAR FILTRATION RATE > 60.0 (>60); GLUCOSE, FASTING 85 MG/DL (70-100); MB/CK RELATIVE INDEX 0.72 (< OR =4); POTASSIUM SERUM 2.7 MEQ/L (3.5-5.1); SODIUM LEVEL 137 MEQ/L (136-145); TOTAL PROTEIN 7.5 GM/DL (6.4-8.2); TROPONIN I < 0.02 NG/ML (< 0.10)
--- NOTE | 2020-11-30 20:52 | ECGEPIP ---
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
== END 2020-11-29 19:20 | disposition left against medical advice (07) ==
LOC: M ED 18:19
DX: Z53.21 Procedure and treatment not carried out due to patient leaving prior to being seen by health care provider (principal)

== ENCOUNTER → 2020-12-11 | Outpatient (CLI) | payer BC ==
[~2020-12-11] MED LIST changes: +DIVA500T9 PO; +METO10TA2 PO; -MONT10TA10; -OMEP-221; +OMEP-221 PO; +OMEP40CA4 PO; -OMEP40CA97 PO; -SUMA50TA2; +SUMA50TA2 PO
== END ==
LOC: M LABSMTC 08:02
PROVIDERS: ATTEND Anesthesiology
DX: Z01.812 Encounter for preprocedural laboratory examination (principal); Z20.822 Contact with and (suspected) exposure to COVID-19

== ENCOUNTER 2020-12-16 08:25 | Day surgery (SDC) | payer BC ==
[~2020-12-16] VITALS: Ht 182.9 cm; Wt 63.0 kg
[~2020-12-16 08:25] MED LIST changes: +FAMO40TA3; +NS 1,000 ML IV ONE; +VITMTA PO
[2020-12-16] MEDS ORDERED: fentaNYL 100 MCG/2 ML INJECTION (J3010) As Ordered ONE (09:13)
[2020-12-16] MEDS ORDERED: propofoL 200 MG/20 ML VIAL As Ordered ONE (09:13)
--- NOTE | 2020-12-16 09:32 | ROOR ---
Patient Name: Bashir Reed Procedure Date: 12/16/2020 9:20 AM Date of : 1980 Age: 40 Room: [facility] Gender: Male Note Status: Finalized Procedure: Upper GI endoscopy Indications: Hematemesis Providers: Carlton Redd Jr, MD Referring MD: Crescencio Reis Requesting Provider: Medicines: Propofol per Anesthesia Complications: No immediate complications. Procedure: Pre-Anesthesia Assessment: - Prior to the procedure, a History and Physical was performed, and patient medications and allergies were reviewed. The patient is competent. The risks and benefits of the procedure and the sedation options and risks were discussed with the patient. All questions were answered and informed consent was obtained. Patient identification and proposed procedure were verified by the physician and the nurse in the pre-procedure area and in the procedure room. Mental Status Examination: alert and oriented. Airway Examination: normal oropharyngeal airway and neck mobility. Respiratory Examination: clear to auscultation. CV Examination: normal. ASA Grade Assessment: II - A patient with mild systemic disease. After reviewing the risks and benefits, the patient was deemed in satisfactory condition to undergo the procedure. The anesthesia plan was to use moderate sedation / analgesia (conscious sedation). Immediately prior to administration of medications, the patient was re-assessed for adequacy to receive sedatives. The heart rate, respiratory rate, oxygen saturations, blood pressure, adequacy of pulmonary ventilation, and response to care were monitored throughout the procedure. The physical status of the patient was re-assessed after the procedure. The Endoscope was introduced through the mouth, and advanced to the second part of duodenum. The upper GI endoscopy was accomplished without difficulty. The patient tolerated the procedure well. Findings: The upper third of the esophagus, middle third of the esophagus and lower third of the esophagus were normal. The Z-line was variable. Biopsies were taken with a cold forceps for histology. The cardia, gastric fundus and gastric body were normal. Diffuse mildly erythematous mucosa was found in the gastric antrum and in the prepyloric region of the stomach. Biopsies were taken with a cold forceps for histology. The duodenal bulb, first portion of the duodenum and second portion of the duodenum were normal. Impression: - Normal upper third of esophagus, middle third of esophagus and lower third of esophagus. - Z-line variable. Biopsied. - Normal cardia, gastric fundus and gastric body. - Erythematous mucosa in the antrum and prepyloric region of the stomach. Biopsied. - Normal duodenal bulb, first portion of the duodenum and second portion of the duodenum. Recommendation: - Discharge patient to home (ambulatory). - Return to my office in 2 weeks. Procedure Code(s): --- Professional --- 89692, Esophagogastroduodenoscopy, flexible, transoral; with biopsy, single or multiple Diagnosis Code(s): --- Professional --- K22.8, Other specified diseases of esophagus K31.89, Other diseases of stomach and duodenum K92.0, Hematemesis CPT copyright 2019 [employer]. All rights reserved. The codes documented in this report are preliminary and upon shift nurse manager review may be revised to meet current compliance requirements. Carlton Redd MD Carlton Redd Jr, MD 12/16/2020 9:31:50 AM Electronically signed by Carlton Redd Jr, MD Number of Addenda: 0 Note Initiated On: 12/16/2020 9:20 AM Estimated Blood Loss: Estimated blood loss: none.
[2020-12-16 09:50] VITALS: BP 136/87
== END 2020-12-16 09:57 | disposition home or self-care (01) ==
LOC: M OPP 08:25
PROVIDERS: ATTEND Surgery
DX: K22.8 Other specified diseases of esophagus (principal); K31.89 Other diseases of stomach and duodenum; K92.0 Hematemesis; K22.719 Barrett's esophagus with dysplasia, unspecified; K29.70 Gastritis, unspecified, without bleeding; J44.9 Chronic obstructive pulmonary disease, unspecified; Z79.899 Other long term (current) drug therapy; Z88.5 Allergy status to narcotic agent; Z91.010 Allergy to peanuts; F17.210 Nicotine dependence, cigarettes, uncomplicated
CPT/HCPCS: 43239; 88305; J3010

== ENCOUNTER 2021-01-05 21:00 | Emergency (ER) | payer BC ==
[~2021-01-05] VITALS: Ht 182.9 cm; Wt 63.8 kg
[~2021-01-05 21:00] MED LIST changes: -NS 1,000 ML IV ONE
[2021-01-05] MEDS ORDERED: SUCR1TAB56 (21:12)
[2021-01-05 23:08] VITALS: BP 137/99
== END 2021-01-06 00:57 | disposition left against medical advice (07) ==
LOC: M ED 21:00
DX: Z53.21 Procedure and treatment not carried out due to patient leaving prior to being seen by health care provider (principal)

== ENCOUNTER 2021-04-04 11:22 | Observation (INO) | payer BC ==
[~2021-04-04] VITALS: Ht 182.9 cm; Wt 41.8 kg
[~2021-04-04 11:22] MED LIST changes: -FAMO40TA3; +SUCR1TAB56
--- OUTSIDE RECORDS SUMMARY | 2021-04-04 11:30 | CCD ---
Author Author [facility] Organization [facility] Address Unknown Phone Unavailable Care Team Providers [employer] Name Role Phone [place], Nohemy Kevin AUDIO VIDEO TECH Unavailable Unavailable [place], Nohemy Kevin AUDIO VIDEO TECH Unavailable Unavailable Juan, Nohemy Kevin AUDIO VIDEO TECH Unavailable Unavailable Juan, Nohemy Kevin AUDIO VIDEO TECH Unavailable Unavailable [place], Nohemy Kevin AUDIO VIDEO TECH Unavailable Unavailable [place], Nohemy Kevin AUDIO VIDEO TECH Unavailable Unavailable Juan, Nohemy Kevin AUDIO VIDEO TECH Unavailable Unavailable Juan, Nohemy Kevin AUDIO VIDEO TECH Unavailable Unavailable Juan, Nohemy Kevin AUDIO VIDEO TECH Unavailable Unavailable [place], Nohemy Kevin AUDIO VIDEO TECH Unavailable Unavailable Juan, Nohemy Kevin AUDIO VIDEO TECH Unavailable Unavailable Juan, Nohemy Kevin AUDIO VIDEO TECH Unavailable Unavailable Juan, Nohemy Kevin AUDIO VIDEO TECH Unavailable Unavailable [place], Nohemy Kevin AUDIO VIDEO TECH Unavailable Unavailable Reva Park MD Unavailable Unavailable Reva Park MD Unavailable Unavailable Reva Park MD Unavailable Unavailable Reva Park MD Unavailable Unavailable Reva Park MD Unavailable Unavailable [place], Borys Unavailable Unavailable [place], Borys Unavailable Unavailable [place], Borys Unavailable Unavailable [place], Borys Unavailable Unavailable [place]uni[place], Borys Unavailable Unavailable [place]uni[place], Borys Unavailable Unavailable [place]uni[place], Borys Unavailable Unavailable [place]uni[place], Borys Unavailable Unavailable [place]uni[place], Borys Unavailable Unavailable Buniak, Borys Unavailable Unavailable [place]uniak, Borys Unavailable Unavailable Buniak, Borys MD Unavailable Unavailable Buniak, Borys MD Unavailable Unavailable Buniak, Borys MD Unavailable Unavailable [place]uniak, Borys Unavailable Unavailable [place]uniak, Borys Unavailable Unavailable Buniak, Borys Unavailable Unavailable Buniak, Borys Unavailable Unavailable Buniak, Borys Unavailable Unavailable Buniak, Borys Unavailable Unavailable Buniak, Borys Unavailable Unavailable Buniak, Borys Unavailable Unavailable [place], Borys Unavailable Unavailable [place], Jeetys Unavailable Unavailable [place], Borys Unavailable Unavailable [place]uni[place], Borys Unavailable Unavailable [place]uniak, Borys Unavailable Unavailable Buniak, Borys Unavailable Unavailable Buniak, Borys Unavailable Unavailable Buniak, Borys Unavailable Unavailable Buniak, Jeetys Unavailable Unavailable Buniak, Jeetys Unavailable Unavailable Buniak, Jeetys Unavailable Unavailable Buniak, Jeetys Unavailable Unavailable Buniak, Jeetys Unavailable Unavailable Buniak, Jeetys Unavailable Unavailable Buniak, Jeetys Unavailable Unavailable Buniak, Jeetys Unavailable Unavailable Buniak, Jeetys Unavailable Unavailable Buniak, Borys Unavailable Unavailable Buniak, Jeetys Unavailable Unavailable Buniak, Borys Unavailable Unavailable Buniak, Borys Unavailable Unavailable Buniak, Borys Unavailable Unavailable Buniak, Borys Unavailable Unavailable Buniak, Borys Unavailable Unavailable Buniak, Borys Unavailable Unavailable Buniak, Jeetys Unavailable Unavailable Buniak, Jeetys Unavailable Unavailable Buniak, Jeetys Unavailable Unavailable Buniak, Jeetys Unavailable Unavailable Buniak, Borys Unavailable Unavailable Buniak, Borys Unavailable Unavailable Buniak, Borys Unavailable Unavailable [place]uniak, Borys Unavailable Unavailable Buniak, Borys MD Unavailable Unavailable [place], Borys MD Unavailable Unavailable [place]uniak, Borys MD Unavailable Unavailable [place]uniak, Borys MD Unavailable Unavailable Buniak, Borys MD Unavailable Unavailable Buniak, Borys MD Unavailable Unavailable Buniak, Borys MD Unavailable Unavailable Buniak, Borys MD Unavailable Unavailable Buniak, Borys MD Unavailable Unavailable Buniak, Borys MD Unavailable Unavailable Buniak, Borys MD Unavailable Unavailable Buniak, Borys MD Unavailable Unavailable Buniak, Borys MD Unavailable Unavailable Buniak, Borys MD Unavailable Unavailable Buniak, Borys MD Unavailable Unavailable [place]uni[place], Borys MD Unavailable Unavailable [place]uniak, Borys MD Unavailable Unavailable Buniak, Borys MD Unavailable Unavailable Buniak, Borys MD Unavailable Unavailable Buniak, Borys MD Unavailable Unavailable Buniak, Borys MD Unavailable Unavailable [place]uniak, Borys MD Unavailable Unavailable Buniak, Borys MD Unavailable Unavailable Buniak, Borys MD Unavailable Unavailable Buniak, Borys MD Unavailable Unavailable Buniak, Borys MD Unavailable Unavailable Buniak, Borys MD Unavailable Unavailable Buniak, Borys MD Unavailable Unavailable Buniak, Borys MD Unavailable Unavailable Buniak, Borys MD Unavailable Unavailable Buniak, Borys MD Unavailable Unavailable Buniak, Borys MD Unavailable Unavailable [place]uniak, Borys MD Unavailable Unavailable [place]uniak, Borys MD Unavailable Unavailable [place], Borys MD Unavailable Unavailable [place], Borys MD Unavailable Unavailable ARCHANA (PRASAD), Edis LAU MD Unavailable Unavailab le ARCHANA (PRASAD), Edis LAU MD Unavailable Unavailab le ARCHANA (PRASAD), Edis LAU MD Unavailable Unavailab le ARCHANA (PRASAD), Edis LAU MD Unavailable Unavailab le ARCHANA (PRASAD), Edis LAU MD Unavailable Unavailab le ARCHANA (PRASAD), Edis LAU MD Unavailable Unavailab le ARCHANA (PRASAD), Edis LAU MD Unavailable Unavailab le ARCHANA (PRASAD), Edis LAU MD Unavailable Unavailab le ARCHANA (PRASAD), Edis LAU MD Unavailable Unavailab le ARCHANA (PRASAD), Edis LAU MD Unavailable Unavailab le ARCHANA (PRASAD), Edis LAU MD Unavailable Unavailab le ARCHANA (PRASAD), Edis LAU MD Unavailable Unavailab le ARCHANA (PRASAD), Edis LAU MD Unavailable Unavailab le ARCHANA (PRASAD), Edis LAU MD Unavailable Unavailab le ARCHANA (PRASAD), Edis LAU MD Unavailable Unavailab le ARCHANA (PRASAD), Edis LAU MD Unavailable Unavailab le ARCHANA (PRASAD), Edis LAU MD Unavailable Unavailab le ARCHANA (PRASAD), Edis LAU MD Unavailable Unavailab le ARCHANA (PRASAD), Edis LAU MD Unavailable Unavailab le ARCHANA (PRASAD), Edis LAU MD Unavailable Unavailab le ARCHANA (PRASAD), Edis LAU MD Unavailable Unavailab le ARCHANA (PRASAD), Edis LAU MD Unavailable Unavailab le ARCHANA (PRASAD), Edis LAU MD Unavailable Unavailab le ARCHANA (PRASAD), Edis LAU MD Unavailable Unavailab le ARCHANA (PRASAD), Edis LAU MD Unavailable Unavailab le ARCHANA (PRASAD), Edis LAU MD Unavailable Unavailab le ARCHANA (PRASAD), Edis LAU MD Unavailable Unavailab le ARCHANA (PRASAD), Edis LAU MD Unavailable Unavailab le ARCHANA (PRASAD), Edis LAU MD Unavailable Unavailab le ARCHANA (PRASAD), Edis LAU MD Unavailable Unavailab le ARCHANA (PRASAD), Edis LAU MD Unavailable Unavailab le ARCHANA (PRASAD), Edis LAU MD Unavailable Unavailab le ARCHANA (PRASAD), Edis LAU MD Unavailable Unavailab le ARCHANA (PRASAD), Edis LAU MD Unavailable Unavailab le ARCHANA (PRASAD), Edis LAU MD Unavailable Unavailab le ARCHANA (PRASAD), Edis LAU MD Unavailable Unavailab le ARCHANA (PRASAD), Edis LAU MD Unavailable Unavailab le ARCHANA (PRASAD), Edis LAU MD Unavailable Unavailab le ARCHANA (PRASAD), Edis LAU MD Unavailable Unavailab le ARCHANA (PRASAD), Edis LAU MD Unavailable Unavailab le ARCHANA (PRASAD), Edis LAU MD Unavailable Unavailab le ARCHANA (PRASAD), Edis LAU MD Unavailable Unavailab le ARCHANA (PRASAD), Edis LAU MD Unavailable Unavailab le ARCHANA (PRASAD), Edis LAU MD Unavailable Unavailab le ARCHANA (PRASAD), Edis LAU MD Unavailable Unavailab le ARCHANA (PRASAD), Edis LAU MD Unavailable Unavailab le ARCHANA (PRASAD), Edis LAU MD Unavailable Unavailab le ARCHANA (PRASAD), Edis LAU MD Unavailable Unavailab le ARCHANA (PRASAD), Edis LAU MD Unavailable Unavailab le ARCHANA (PRASAD), Edis LAU MD Unavailable Unavailab le ARCHANA (PRASAD), Edis LAU MD Unavailable Unavailab le ARCHANA (PRASAD), Edis LAU MD Unavailable Unavailab le ARCHANA (PRASAD), Edis LAU MD Unavailable Unavailab le ARCHANA (PRASAD), Edis LAU MD Unavailable Unavailab le ARCHANA (PRASAD), Edis LAU MD Unavailable Unavailab le ARCHANA (PRASAD), Edis LAU MD Unavailable Unavailab le ARCHANA (PRASAD), Edis LAU MD Unavailable Unavailab le ARCHANA (PRASAD), Edis LAU MD Unavailable Unavailab le ARCHANA (PRASAD), Edis LAU MD Unavailable Unavailab le ARCHANA (PRASAD), Edis LAU MD Unavailable Unavailab le ARCHANA (PRASAD), Edis LAU MD Unavailable Unavailab le ARCHANA (PRASAD), Edis LAU MD Unavailable Unavailab le ARCHANA (PRASAD), Edis LAU MD Unavailable Unavailab le ARCHANA (PRASAD), Edis LAU MD Unavailable Unavailab le ARCHANA (PRASAD), Edis LAU MD Unavailable Unavailab le ARCHANA (PRASAD), Edis LAU MD Unavailable Unavailab le ARCHANA (PRASAD), Edis LAU MD Unavailable Unavailab le ARCHANA (PRASAD), Edis LAU MD Unavailable Unavailab le ARCHANA (PRASAD), Edis LAU MD Unavailable Unavailab le ARCHANA (PRASAD), Edis LAU MD Unavailable Unavailab le ARCHANA (PRASAD), Edis LAU MD Unavailable Unavailab le ARCHANA (PRASAD), Edis LAU MD Unavailable Unavailab le ARCHANA (PRASAD), Edis LAU MD Unavailable Unavailab le ARCHANA (PRASAD), Edis LAU MD Unavailable Unavailab le ARCHANA (PRASAD), Edis LAU MD Unavailable Unavailab le ARCHANA (PRASAD), Edis LAU MD Unavailable Unavailab le ARCHANA (PRASAD), Edis LAU MD Unavailable Unavailab le ARCHANA (PRASAD), Edis LAU MD Unavailable Unavailab le ARCHANA (PRASAD), Edis LAU MD Unavailable Unavailab le ARCHANA (PRASAD), Edis LAU MD Unavailable Unavailab le ARCHANA (PRASAD), Edis LAU MD Unavailable Unavailab le ARCHANA (PRASAD), Edis LAU MD Unavailable Unavailab le ARCHANA (PRASAD), Edis LAU MD Unavailable Unavailab le ARCHANA (PRASAD), Edis LAU MD Unavailable Unavailab le ARCHANA (PRASAD), Edis LAU MD Unavailable Unavailab le ARCHANA (PRASAD), Edis LAU MD Unavailable Unavailab le ARCHANA (PRASAD), Edis LAU MD Unavailable Unavailab le Nieto, L Suha RPA Unavailable Unavailable Nieto, L Suha RPA Unavailable Unavailable Nieto, L Suha RPA Unavailable Unavailable Nieto, L Suha RPA Unavailable Unavailable Nieto, L Suha RPA Unavailable Unavailable Nieto, L Suha RPA Unavailable Unavailable Nieto, L Suha RPA Unavailable Unavailable Nieto, L Suha RPA Unavailable Unavailable Nieto, L Suha RPA Unavailable Unavailable Nieto, L Suha RPA Unavailable Unavailable Nieto, L Suha RPA Unavailable Unavailable Nieto, L Suha RPA Unavailable Unavailable Nieto, L Suha RPA Unavailable Unavailable Nieto, L Suha RPA Unavailable Unavailable Nieto, L Suha RPA Unavailable Unavailable Nieto, L Suha RPA Unavailable Unavailable Nieto, L Suha RPA Unavailable Unavailable Nieto, L Suha RPA Unavailable Unavailable Nieto, L Suha RPA Unavailable Unavailable Nieto, L Suha RPA Unavailable Unavailable Nieto, L Suha RPA Unavailable Unavailable Nieto, L Suha RPA Unavailable Unavailable Nieto, L Suha RPA Unavailable Unavailable Nieto, L Suha RPA Unavailable Unavailable Nieto, L Suha RPA Unavailable Unavailable Nieto, L Suha RPA Unavailable Unavailable Nieto, L Suha RPA Unavailable Unavailable Nieto, L Suha RPA Unavailable Unavailable Nieto, L Usha RPA Unavailable Unavailable Nieto, L Suha RPA Unavailable Unavailable Nieto, L Suha RPA Unavailable Unavailable Nieto, L Suha RPA Unavailable Unavailable Ruddy Redd JR, MD Unavailable Unavailable Ruddy Redd JR, MD Unavailable Unavailable Ruddy Redd JR, MD Unavailable Unavailable Ruddy Redd JR, MD Unavailable Unavailable Ruddy Redd JR, MD Unavailable Unavailable Ruddy Redd JR, MD Unavailable Unavailable Ruddy Redd JR, MD Unavailable Unavailable Ruddy Redd JR, MD Unavailable Unavailable Ruddy Redd JR, MD Unavailable Unavailable Ruddy Redd JR, MD Unavailable Unavailable Ruddy Redd JR, MD Unavailable Unavailable Ruddy Redd JR, MD Unavailable Unavailable Ruddy Redd JR, MD Unavailable Unavailable Ruddy Redd JR, MD Unavailable Unavailable Ruddy Redd JR, MD Unavailable Unavailable Ruddy Redd JR, MD Unavailable Unavailable Ruddy Redd JR, MD Unavailable Unavailable Ruddy Redd JR, MD Unavailable Unavailable Ruddy Redd JR, MD Unavailable Unavailable Ruddy Redd JR, MD Unavailable Unavailable Ruddy Redd JR, MD Unavailable Unavailable Ruddy Redd JR, MD Unavailable Unavailable Ruddy Redd JR, MD Unavailable Unavailable Ruddy Redd JR, MD Unavailable Unavailable Ruddy Redd JR, MD Unavailable Unavailable Ruddy Redd JR, MD Unavailable Unavailable Ruddy Redd JR, MD Unavailable Unavailable Ruddy Redd JR, MD Unavailable Unavailable Ruddy Redd JR, MD Unavailable Unavailable Ruddy Redd JR, MD Unavailable Unavailable Ruddy Redd JR, MD Unavailable Unavailable Ruddy Redd JR, MD Unavailable Unavailable Ruddy Redd JR, MD Unavailable Unavailable Ruddy Redd JR, MD Unavailable Unavailable Ruddy Redd JR, MD Unavailable Unavailable Ruddy Redd JR, MD Unavailable Unavailable Ruddy Redd JR, MD Unavailable Unavailable Ruddy Redd JR, MD Unavailable Unavailable Ruddy Redd JR, MD Unavailable Unavailable Ruddy Redd JR, MD Unavailable Unavailable Ruddy Redd JR, MD Unavailable Unavailable Ruddy Redd JR, MD Unavailable Unavailable Ruddy Redd JR, MD Unavailable Unavailable Ruddy Redd JR, MD Unavailable Unavailable Ruddy Redd JR, MD Unavailable Unavailable Ruddy Redd JR, MD Unavailable Unavailable Ruddy Redd JR, MD Unavailable Unavailable Ruddy Redd JR, MD Unavailable Unavailable Ruddy Redd JR, MD Unavailable Unavailable Ruddy Redd JR, MD Unavailable Unavailable Ruddy Redd JR, MD Unavailable Unavailable Ruddy Redd JR, MD Unavailable Unavailable Ruddy Redd JR, MD Unavailable Unavailable Ruddy Redd JR, MD Unavailable Unavailable LOI SPARKS MD Unavailable Unavailab LOI Mims MD Unavailable Unavailab LOI Mims MD Unavailable Unavailab LOI Mims MD Unavailable Unavailab LOI Mims MD Unavailable Unavailab LOI Mims MD Unavailable Unavailab LOI Mims MD Unavailable Unavailab LOI Mims MD Unavailable Unavailab LOI Mims MD Unavailable Unavailab LOI Mims MD Unavailable Unavailab HEATHER MimsM Unavailable Unavailab LOI Mims MD Unavailable Unavailab LOI Mims MD Unavailable Unavailab LOI Mims MD Unavailable Unavailab PAOLA MimsRAMROSALIDNA ANGELES Unavailable Unavailab LOI Mims MD Unavailable Unavailab LOI Mims MD Unavailable Unavailab LOI Mims MD Unavailable Unavailab HEATHER MimsM Unavailable Unavailab LOI Mims MD Unavailable Unavailab LOI Mims MD Unavailable Unavailab LOI Mims MD Unavailable Unavailab HEATHER MimsM Unavailable Unavailab LOI Mims MD Unavailable Unavailab LOI Mims MD Unavailable Unavailab LOI Mims MD Unavailable Unavailab PAOLA MimsRAMROSALINDA ANGELES Unavailable Unavailab LOI Mims MD Unavailable Unavailab LOI Mims MD Unavailable Unavailab HEATHER MimsM Unavailable Unavailab PAOLA MimsRAMMARCINM Unavailable Unavailab PAOLA MimsRAMMARCINM Unavailable Unavailab LOI Mims MD Unavailable Unavailab LOI Mims MD Unavailable Unavailab LOI Mims MD Unavailable Unavailab BEENA MmisASLIVRAMMARCINM Unavailable Unavailab LOI Mims MD Unavailable Unavailab LOI Mims MD Unavailable Unavailab LOI Mims MD Unavailable Unavailab LOI Mims MD Unavailable Unavailab LOI Mims MD Unavailable Unavailab LOI Mims MD Unavailable Unavailab le LOI SPARKS MD Unavailable Unavailab LOI Mims MD Unavailable Unavailab LOI Mims MD Unavailable Unavailab LOI Mims MD Unavailable Unavailab LOI Mims MD Unavailable Unavailab LOI Mims MD Unavailable Unavailab LOI Mims MD Unavailable Unavailab LOI Mims MD Unavailable Unavailab LOI Mims MD Unavailable Unavailab LOI Mims MD Unavailable Unavailab LOI Mims MD Unavailable Unavailab LOI Mims MD Unavailable Unavailab LOI Mims MD Unavailable Unavailab LOI Mims MD Unavailable Unavailab LOI Mims MD Unavailable Unavailab LOI Mims MD Unavailable Unavailab LOI Mims MD Unavailable Unavailab LOI Mims MD Unavailable Unavailab LOI Mims MD Unavailable Unavailab LOI Mims MD Unavailable Unavailab LOI Mims MD Unavailable Unavailab LOI Mims MD Unavailable Unavailab LOI Mims MD Unavailable Unavailab LOI Mims MD Unavailable Unavailab LOI Mims MD Unavailable Unavailab LOI Mims MD Unavailable Unavailab LOI Mims MD Unavailable Unavailab LOI Mims MD Unavailable Unavailab LOI Mims MD Unavailable Unavailab LOI Mims MD Unavailable Unavailab LOI Mims MD Unavailable Unavailab LOI Mims MD Unavailable Unavailab LOI Mims MD Unavailable Unavailab le Re-disclosure Warning The records that you are about to access may contain information from federally-assisted alcohol or drug abuse programs. If such information is present, then the following federally mandated warning applies: This information has been disclosed to you from records protected by federal confidentiality rules (42 CFR part 2). The federal rules prohibit you from making any further disclosure of this information unless further disclosure is expressly permitted by the written consent of the person to whom it pertains or as otherwise permitted by 42 CFR part 2. A general authorization for the release of medical or other information is NOT sufficient for this purpose. The Federal rules restrict any use of the information to criminally investigate or prosecute any alcohol or drug abuse patient.The records that you are about to access may contain highly sensitive health information, the redisclosure of which is protected by Article 27-F of the [facility] Public Health law. If you continue you may have access to information: Regarding HIV / AIDS; Provided by facilities licensed or operated by the [facility] Office of Mental Health; or Provided by the [facility] Office for People With Developmental Disabilities. If such information is present, then the following [facility] mandated warning applies: This information has been disclosed to you from confidential records which are protected by state law. State law prohibits you from making any further disclosure of this information without the specific written consent of the person to whom it pertains, or as otherwise permitted by law. Any unauthorized further disclosure in violation of state law may result in a fine or retirement sentence or both. A general authorization for the release of medical or other information is NOT sufficient authorization for further disc losure. Allergies and Adverse Reactions Type Description Substance Reaction Status Data Source(s ) Propensity to adverse reactions PEANUT-CONTAINING DRUG PRODU CTS Peanut- Containing Drug Products Active [facility] Family History Family Member Name Family Member Gender Family Member Status Date o f Status Description Data Source(s) Unknown Unknown Problem [facility] ([facility]) Unknown Male Problem [facility] ([facility]) Unknown Female Problem [facility] ([facility]) Unknown Female Problem [facility] ([facility]) Unknown Female Problem [facility] ([facility]) Unknown Female Problem [facility] ([facility]) Unknown Female Problem [facility] ([facility]) Encounters Encounter Providers Location Date Indications Data Source(s ) Outpatient Attender: Suha Valerio/Milana/Derrick/R eindl 12/29/2020 11:15:00 AM EDT [facility] ([facility]) Outpatient Attender: Carlton Valerio/Milana/Derrick/Rein dl 10/20/2020 10:45:00 AM EDT [facility] ([facility]) Attender: SID REDD MD ([place]) 0 08:20:12 PM EST [facility] Attender: SID REDD MD ([place]) 0 08:20:12 PM EST [facility] Outpatient Referrer: Reva Park MD [email or web address] 05/14/2020 10:46:03 AM EST [facility] Outpatient Attender: LOI PLUNKETT MDReferrer: LOI SPARKS MD [id number] 05/05/2020 09:30:00 AM EST - 05/05/2020 11:59:00 PM EST [facility] Patient discharged. Outpatient Attender: Reva Park MDAdmitter: Reva Park MD [email or web address] 03/29/2020 03:28:[address] [facility] Outpatient Attender: Reva Park MDAdmitter: Reva Park MD [id number] 03/29/2020 03:20:[address] [facility] Outpatient Attender: LOI PLUNKETT MDReferrer: LOI SPARKS MD [id number] 03/29/2020 12:00:00 AM EDT [facility] Outpatient Attender: Kevin Valerio/Milana/Derrick/Ward ndl 02/04/2020 09:00:00 AM EDT [facility] ([facility]) Immunizations Vaccine Date Status Description Data Source(s) COVID-19 VACCINE Pfizer 09/17/2020 12:00:00 AM EDT completed [facility] Vaccine Series Complete: YESThis Data wa s Submitted to [facility] Via [employer]. COVID-19 VACCINE Pfizer 08/27/2020 12:00:00 AM EST completed [facility] Vaccine Series Complete: NOThis Data was Submitted to [facility] Via [employer]. Medications Medication Brand Name Start Date Product Form Dose Route Admi nistrative Instructions Pharmacy Instructions Status Indications Reaction Description Data Source(s) 200 mg 03/24/2021 12:00:00 AM EDT capsule 9 TAKE ONE CAPSULE BY MOUTH THREE TIMES A DAY NEEDED FOR COUGH TAKE ONE CAPSULE BY MOUTH THREE TIMES A DAY NEEDED FOR COUGH SOLD: 03/27/2021 [facility] Amoxicillin 875 MG / Clavulanate 125 MG Oral Tablet 87 5-125 mg AMOXICILLIN/POTASSIUM CLAV 03/24/2021 12:00:00 AM EDT tablet 20 TAKE ONE TABLET BY MOUTH TWO TIMES A DAY TAKE ONE TABLET BY MOUTH TWO TIMES A DAY SOLD: 03/27/2021 [facility] 10 mg 02/24/2021 12:00:00 AM EDT tablet 90 TAKE ONE TABLET BY MOUTH THREE TIMES A DAY TAKE ONE TABLET BY MOUTH THREE TIMES A DAY SOLD: 03/27/2021 [facility] 40 mg 02/24/2021 12:00:00 AM EDT capsule,delayed release (DR/EC) 180 TAKE ONE CAPSULE BY MOUTH TWICE A DAY TAKE ONE CAPSULE BY MOUTH TWICE A DAY SOLD: 02/27/2021 [facility] 10 mg 02/24/2021 12:00:00 AM EDT tablet 90 TAKE ONE TABLET BY MOUTH THREE TIMES A DAY TAKE ONE TABLET BY MOUTH THREE TIMES A DAY SOLD: 02/27/2021 [facility] montelukast 10 MG Oral Tablet MONTELUKAST SODIUM 02/24/2021 12:0 0:00 AM EDT tablet 90 TAKE ONE TABLET BY MOUTH EVERY D AY TAKE ONE TABLET BY MOUTH EVERY DAY SOLD: 02/27/2021 [facility] Famotidine 40 MG Oral Tablet FAMOTIDINE 02/14/2021 12:00:00 AM EDT tab let 180 TAKE ONE TABLET BY MOUTH TWICE A DAY TAKE ONE TABLET BY MOUTH TWICE A DAY SOLD: 02/16/2021 [facility] Trazodone Hydrochloride 100 MG Oral Tablet TRAZODONE HCL 01/12/2021 12:00:00 AM EDT tablet 30 TAKE ONE TABLET BY MOUTH ONC E DAILY BEFORE BEDTIME TAKE ONE TABLET BY MOUTH ONCE DAILY BEFORE BEDTIME SOLD: 02/20/2021 [facility] Trazodone Hydrochloride 100 MG Oral Tablet TRAZODONE HCL 01/12/2021 12:00:00 AM EDT tablet 30 TAKE ONE TABLET BY MOUTH ONC E DAILY BEFORE BEDTIME TAKE ONE TABLET BY MOUTH ONCE DAILY BEFORE BEDTIME SOLD: 01/19/2021 [facility] 10 mg 12/23/2020 12:00:00 AM EDT tablet 90 TAKE ONE TABLET BY MOUTH THREE TIMES A DAY TAKE ONE TABLET BY MOUTH THREE TIMES A DAY SOLD: 12/26/2020 [facility] 10 mg 12/23/2020 12:00:00 AM EDT tablet 90 TAKE ONE TABLET BY MOUTH THREE TIMES A DAY TAKE ONE TABLET BY MOUTH THREE TIMES A DAY SOLD: 01/23/2021 [facility] Sucralfate 1000 MG Oral Tablet Sucralfate 12/16/2020 12:00:00 AM EDT ORAL active [facility] ([facility] 1 gram 12/16/2020 12:00:00 AM EDT tablet 60 TAKE ONE TABLET BY MOUTH TWICE A DAY (MAY DISSOLVE IN WARM WATER IF YOU HAVE TROUBLE SWALLOWING) TAKE ONE TABLET BY MOUTH TWICE A DAY (MAY DISSOLVE IN WARM WATER IF YOU HAVE TROUBLE SWALLOWING) SOLD: 12/22/2020 [facility] 50 mg 12/15/2020 12:00:00 AM EDT tablet 9 TAKE ONE TABLET BY MOUTH AT ONSET OF MIGRAIN ONCE DAILY NEEDED 9 TABLETS SHOULD LAST 30 DAYS TAKE ONE TABLET BY MOUTH AT ONSET OF MIGRAIN ONCE DAILY NEEDED 9 TABLETS SHOULD LAST 30 DAYS SOLD: 01/23/2021 [facility] 50 mg 12/15/2020 12:00:00 AM EDT tablet 9 TAKE ONE TABLET BY MOUTH AT ONSET OF MIGRAIN ONCE DAILY NEEDED 9 TABLETS SHOULD LAST 30 DAYS TAKE ONE TABLET BY MOUTH AT ONSET OF MIGRAIN ONCE DAILY NEEDED 9 TABLETS SHOULD LAST 30 DAYS SOLD: 12/16/2020 [facility] 40 mg 12/09/2020 12:00:00 AM EDT capsule,delayed release (DR/EC) 180 TAKE ONE CAPSULE BY MOUTH TWICE A DAY TAKE ONE CAPSULE BY MOUTH TWICE A DAY SOLD: 12/12/2020 [facility] Famotidine 40 MG Oral Tablet FAMOTIDINE 12/09/2020 12:00:00 AM EDT tab let 180 TAKE ONE TABLET BY MOUTH TWICE A DAY TAKE ONE TABLET BY MOUTH TWICE A DAY SOLD: 12/12/2020 [facility] montelukast 10 MG Oral Tablet MONTELUKAST SODIUM 11/09/2020 12:0 0:00 AM EDT tablet 90 TAKE ONE TABLET BY MOUTH EVERY D AY TAKE ONE TABLET BY MOUTH EVERY DAY SOLD: 11/14/2020 [facility] Trazodone Hydrochloride 100 MG Oral Tablet TRAZODONE HCL 09/23/2020 12:00:00 AM EDT tablet 30 TAKE ONE TABLET BY MOUTH RADHA RY DAY AT BEDTIME TAKE ONE TABLET BY MOUTH EVERY DAY AT BEDTIME SOLD: 09/26/2020 [facility] 10 mg 09/23/2020 12:00:00 AM EDT tablet 90 TAKE ONE TABLET BY MOUTH THREE TIMES A DAY TAKE ONE TABLET BY MOUTH THREE TIMES A DAY SOLD: 10/27/2020 [facility] 10 mg 09/23/2020 12:00:00 AM EDT tablet 90 TAKE ONE TABLET BY MOUTH THREE TIMES A DAY TAKE ONE TABLET BY MOUTH THREE TIMES A DAY SOLD: 11/23/2020 [facility] 10 mg 09/23/2020 12:00:00 AM EDT tablet 90 TAKE ONE TABLET BY MOUTH THREE TIMES A DAY TAKE ONE TABLET BY MOUTH THREE TIMES A DAY SOLD: 09/26/2020 [facility] 24 HR Divalproex Sodium 500 MG Extended Release Oral Tablet DIVALPROEX SODIUM 09/23/2020 12:00:00 AM EDT tablet extended release 24 hr 90 TAKE ONE TABLET BY MOUTH EVERY DAY TAKE ONE TABLET BY MOUTH EVERY DAY SOLD: 09/26/2020 [facility] 50 mg 09/16/2020 12:00:00 AM EDT tablet 9 TAKE ONE TABLET BY MOUTH AT ONSET OF MGRAINE HEADACHE ONCE A DAY NEEDED, MAY TREAT 9 IN ONE MONTH TAKE ONE TABLET BY MOUTH AT ONSET OF MGRAINE HEADACHE ONCE A DAY NEEDED, MAY TREAT 9 IN ONE MONTH SOLD: 10/17/2020 [facility] 50 mg 09/16/2020 12:00:00 AM EDT tablet 9 TAKE ONE TABLET BY MOUTH AT ONSET OF MGRAINE HEADACHE ONCE A DAY NEEDED, MAY TREAT 9 IN ONE MONTH TAKE ONE TABLET BY MOUTH AT ONSET OF MGRAINE HEADACHE ONCE A DAY NEEDED, MAY TREAT 9 IN ONE MONTH SOLD: 11/14/2020 [facility] 50 mg 09/16/2020 12:00:00 AM EDT tablet 9 TAKE ONE TABLET BY MOUTH AT ONSET OF MGRAINE HEADACHE ONCE A DAY NEEDED, MAY TREAT 9 IN ONE MONTH TAKE ONE TABLET BY MOUTH AT ONSET OF MGRAINE HEADACHE ONCE A DAY NEEDED, MAY TREAT 9 IN ONE MONTH SOLD: 09/18/2020 [facility] 40 mg 09/13/2020 12:00:00 AM EDT capsule,delayed release (DR/EC) 180 TAKE ONE CAPSULE BY MOUTH TWICE A DAY TAKE ONE CAPSULE BY MOUTH TWICE A DAY SOLD: 09/15/2020 [facility] Famotidine 40 MG Oral Tablet FAMOTIDINE 09/13/2020 12:00:00 AM EDT tab let 180 TAKE ONE TABLET BY MOUTH TWICE A DAY TAKE ONE TABLET BY MOUTH TWICE A DAY SOLD: 09/15/2020 [facility] montelukast 10 MG Oral Tablet MONTELUKAST SODIUM 07/30/2020 12:0 0:00 AM EST tablet 90 TAKE ONE TABLET BY MOUTH ONCE A DAY TAKE ONE TABLET BY MOUTH ONCE A DAY SOLD: 08/01/2020 [facility] Famotidine 40 MG Oral Tablet FAMOTIDINE 06/17/2020 12:00:00 AM EST tab let 180 TAKE ONE TABLET BY MOUTH TWICE A DAY TAKE ONE TABLET BY MOUTH TWICE A DAY SOLD: 06/20/2020 [facility] 40 mg 06/17/2020 12:00:00 AM EST capsule,delayed release (DR/EC) 180 TAKE ONE CAPSULE BY MOUTH TWICE A DAY TAKE ONE CAPSULE BY MOUTH TWICE A DAY SOLD: 06/20/2020 [facility] 50 mg 05/25/2020 12:00:00 AM EST tablet 9 TAKE ONE TABLET BY MOUTH AT ONSET OF MIGRAINE NEEDED, 9 PER MONTH TAKE ONE TABLET BY MOUTH AT ONSET OF SUKHJINDER ROJELIO NEEDED, 9 PER MONTH SOLD: 05/26/2020 [facility] 50 mg 05/25/2020 12:00:00 AM EST tablet 9 TAKE ONE TABLET BY MOUTH AT ONSET OF MIGRAINE NEEDED, 9 PER MONTH TAKE ONE TABLET BY MOUTH AT ONSET OF SUKHJINDER ROJELIO NEEDED, 9 PER MONTH SOLD: 07/13/2020 [facility] 50 mg 05/25/2020 12:00:00 AM EST tablet 9 TAKE ONE TABLET BY MOUTH AT ONSET OF MIGRAINE NEEDED, 9 PER MONTH TAKE ONE TABLET BY MOUTH AT ONSET OF SUKHJINDER ROJELIO NEEDED, 9 PER MONTH SOLD: 08/25/2020 [facility] montelukast 10 MG Oral Tablet MONTELUKAST SODIUM 05/12/2020 12:0 0:00 AM EST tablet 90 TAKE ONE TABLET BY MOUTH EVERY D AY TAKE ONE TABLET BY MOUTH EVERY DAY SOLD: 05/16/2020 [facility] Omeprazole 40 MG Delayed Release Oral Capsule OMEPRAZOLE 04/22/2020 12:00:00 AM EST capsule,delayed release(DR/EC) 90 TAKE ONE C APSULE BY MOUTH EVERY DAY TAKE ONE CAPSULE BY MOUTH EVERY DAY SOLD: 04/23/2020 [facility] 24 HR Divalproex Sodium 500 MG Extended Release Oral Tablet DIVALPROEX SODIUM 04/22/2020 12:00:00 AM EST tablet extended release 24 hr 30 TAKE ONE TABLET BY MOUTH EVERY DAY TAKE ONE TABLET BY MOUTH EVERY DAY SOLD: 04/23/2020 [facility] 15 mg 04/22/2020 12:00:00 AM EST tablet 30 TAKE ONE TABLET BY MOUTH AT BEDTIME TAKE ONE TABLET BY MOUTH AT BEDTIME SOLD: 04/23/2020 [facility] 50 mg 04/22/2020 12:00:00 AM EST tablet 9 TAKE 1 TABLET AT ONSET OF MIGRAINE ONCE A DAY NEEDED MAY TREAT 9 HEADACHES IN A MONTH TAKE 1 TABLET AT ONSET OF MIGRAINE ONCE A DAY NEEDED MAY TREAT 9 HEADACHES IN A MONTH SOLD: 04/23/2020 [facility] 20 mg 04/15/2020 12:00:00 AM EDT capsule,delayed release (DR/EC) 90 TAKE ONE CAPSULE BY MOUTH EVERY DAY TAKE ONE CAPSULE BY MOUTH EVERY DAY SOLD: 04/15/2020 [facility] Famotidine 40 MG Oral Tablet famotidine (PEPCID) 40 MG tablet famotidine (PEPCID) 40 MG tablet 03/17/2020 12:00:00 AM EDT 40 mg Oral active Take 40 mg by mouth 2 (two) times a day [facility] 40 mg 03/17/2020 12:00:00 AM EDT tablet 180 TAKE ONE TABLET BY MOUTH TWICE A DAY TAKE ONE TABLET BY MOUTH TWICE A DAY SOLD: 03/21/2020 [facility] Omeprazole 40 MG Delayed Release Oral Ca psule omeprazole (PRILOSEC) 40 MG capsule omeprazole (PRILOSEC) 40 MG capsule 03/12/2020 12:00:00 AM EDT 40 mg Oral active Take 40 mg by mouth 2 (two) times a day [facility] 40 mg 03/12/2020 12:00:00 AM EDT capsule,delayed release (DR/EC) 60 TAKE ONE CAPSULE BY MOUTH TWICE A DAY TAKE ONE CAPSULE BY MOUTH TWICE A DAY SOLD: 03/14/2020 [facility] montelukast 10 MG Oral Tablet MONTELUKAST SODIUM 02/12/2020 12:0 0:00 AM EDT tablet 90 TAKE ONE TABLET BY MOUTH EVERY D AY TAKE ONE TABLET BY MOUTH EVERY DAY SOLD: 02/15/2020 [facility] montelukast 10 MG Oral Tablet montelukast (SINGULAIR) 10 MG tablet montelukast (SINGULAIR) 10 MG tablet 02/12/2020 12:00:00 AM EDT 10 mg Oral active Take 10 mg by mouth daily [facility] 40 mg 12/10/2019 12:00:00 AM EDT capsule,delayed release (DR/EC) 60 TAKE ONE CAPSULE BY MOUTH TWICE A DAY TAKE ONE CAPSULE BY MOUTH TWICE A DAY SOLD: 02/15/2020 [employer] Insurance Providers Payer name Policy type / Coverage type Policy ID Covered constitution party ID Covered constitution party's relationship to garrett Policy Garrett Plan Information [facility] PPO POS [id number] POMCO U [id number] Spouse [id number] [place] [id number] 1 [id number] [place] 302/[id number] SP [id number] [facility] SNEHAL [id number] SP [id number] POMCO [id number] WI2 [id number] [place] 306/[phone] [id number] SP [id number] POMCO [id number] Spo [id number] EXCELLUS BCBS MEDICAID xxxxxxxxxxxx [employer]CELL[employer] BCBS MEDICAID [id number] Aria [id number] [facility] PPO POS [id number] INSURANCE COVID-19 COVID Aria C OVID INSURANCE COVID-19 [id number] [employer] (pr) Commercial [id number] Family Dependent [id number] POMCO [id number] [employer] Commercial [id number] Family Dependent [employer] (pr) Commercial [id number] Family Dependent [employer] Commercial [id number] F amily Dependent [employer] Commercial [id number] Family Dependent POMCO O [id number] U [id number] BCBS [place] O [id number] SP [id number] [place] P[place] 302/[phone] [id number] SP [id number] BCBS [place] HMO [id number] SP [id number] [facility] (HMO) [id number] Self [id number] [employer] Commercial [id number] Family Dependent [id number] SELF PAY HEA UNAVAILABLE [id number] S UNAVAIL ABLE SELF PAY HEA UNAVAILABLE [id number] S UNAVAIL ABLE UNAVAILABLE UNAVAILA BLE POMCO HEA [id number] POMCO -O/P [id number] 19 [id number] [employer] PPO O [id number] P [id number] [employer] Commercial [id number] Family Dependent [id number] [employer] Commercial [id number] Family Dependent [id number] [facility] [place] [id number] Family Dependent [id number] Problems, Conditions, and Diagnoses Code Display Name Description Problem Type Effective Dates Data Source(s) K21.9 Gastro-esophageal reflux disease without esophagitis Gastro-esophageal reflux disease without Diagnosis 05/18/2020 01:51:36 PM [facility] U07.1 COVID-19 COVID-19 Diagnosis 05/14/2020 12:00:00 AM ES T [facility] K44.9 Diaphragmatic hernia without obstruction or gangrene Diaphragmatic hernia without obstruction Diagnosis 05/12/2020 12:39:35 PM [facility] K21.01 Gastro-esophageal reflux disease with es ophagitis, with bleeding Gastro- esophageal reflux disease with es Diagnosis 05/12/2020 12:39:35 PM [facility] Surgeries/Procedures Procedure Description Date Indications Data Source(s) OFFICE OUTPATIENT VISIT 15 MINUTES 12/29/2020 12:00:00 AM EDT [facility] ([facility]) Endoscopy Upper GI Biopsy 12/16/2020 12:00:00 AM EDT [facility]) OFFICE OUTPATIENT VISIT 25 MINUTES 10/20/2020 12:00:00 AM EDT [facility] ([facility]) Results ID Date Data Source [id number] 12/16/2020 09:31:00 AM EDT [facility] ([facility]) Name Value Range Interpretation Code Description Data Micaela rce(s) Supporting Document(s) Surgical pathology study Laboratory test result [facility] ([facility]) FINAL DIAGNOSIS A-Stomach, antral biopsy: Gastric mucosa with mild chronic inflammation and reactive changes. No H.pylori is identified. B-Esophagus, GE junction, biopsy: Lopez's mucosa present. Mild Chronic inflammation. No evidence of premalignant dysplasia. Squamous mucosa with reactive changes and reparative changes. 12/17/2020 - 1142 CLINICAL DIAGNOSIS Nausea and vomiting 12/16/2020 - 1502 GROSS DIAGNOSIS A - Received in formalin labeled "antral biopsy for gastritis" and consists of a fragment of tissue, 0.2 x 0.1 x 0.1 cm. All in one. B - Received in formalin labeled "GE junction biopsy," and consists of a fragment of tissue, 0.1 x 0.1 x 0.1 cm. All in one. -OA 12/17/2020 - 1142 Signed IBRAHIMA MOE MD 12/17/2020 1142 ID Date Data Source [id number] 07/22/2020 05:08:00 AM EST [facility] Name Value Range Interpretation Code Description Data Micaela rce(s) Supporting Document(s) SARS coronavirus 2 RNA Not Detected [facility] This lab was ordered by [facility] and reported by [facility]. ID Date Data Source [id number] 07/22/2020 04:29:00 AM EST [facility] Name Value Range Interpretation Code Description Data Micaela rce(s) Supporting Document(s) SARS COVID ANTIGEN NEGATIVE [facility] This lab was ordered by [facility] reported by [facility]. ID Date Data Source [id number] 03/06/2020 10:00:00 AM EDT [facility] Name Value Range Interpretation Code Description Data Micaela rce(s) Supporting Document(s) SARS coronavirus 2 RNA [facility] This lab was ordered by [facility] and reported by [facility]. ID Date Data Source [id number] 02/11/2020 06:50:00 AM EDT [facility], ) Name Value Range Interpretation Code Description Data Micaela rce(s) Supporting Document(s) Prothrombin Time 13.7 s 11.8-14.0 Normal (applies to non-numeric results) [facility] ([facility], ) Inr 1.03 Normal (applies to non-numeric resul ts) [facility], ) THERAPUTIC HUMAN INR VALUES INDICATIONS NORMAL RANGES PROPHYLAXIS/TREATMENT OF: VENOUS THROMBOSIS 2.0-3.0 PULMONARY EMBOLISM 2.0-3.0 PREVENTION OF SYSTEMIC EMBOLISM FROM: TISSUE HEART VALVES 2.0-3.0 ACUTE MYOCARDIAL INFARCTION 2.0-3.0 VALVULAR HEART DISEASE 2.0-3.0 ATRIAL FIBRILLATION 2.0-3.0 MECHANICAL VALVES(HIGH RISK) 2.5-3.5 RECURRENT MYOCARDIAL INFARCTION 2.5-3.5 Partial Thromboplastin Time 25.1 s 25.0-38.4 Norm al (applies to non-numeric results) [facility] ([facility]) ID Date Data Source [id number] 02/11/2020 06:50:00 AM EDT [facility] ([facility]) Name Value Range Interpretation Code Description Data Micaela rce(s) Supporting Document(s) Ast/Sgot 23 U/L 7-37 Normal (applies to non-numeric resul ts) [facility] ([facility]) Alkaline Phosphatase 135 U/L 45-117 Above high [facility] Alt/SGPT 30 U/L 12-78 Normal (applies to non-numeric resul ts) [facility]) Bilirubin,Direct 0.4 mg/dL 0.0-0.2 Above high normal [facility]) Bilirubin,Total 1.1 mg/dL 0.2-1.0 Above high normal [facility] ([facility]) Albumin/Globulin Ratio 1.1 Normal (applies to non-n umeric results) [facility] ([facility]) Total Protein 7.8 GM/DL 6.4-8.2 Normal (applies to non-numeric re sults) [facility] ([facility]) Albumin 4.1 GM/DL 3.2-5.2 Normal (applies to non-numeric resul ts) [facility] ([facility]) Procedure Social History Code Duration Value Status Description Data Source(s ) Alcohol intake 03/29/2020 12:00:00 AM EDT Yes completed [facility] Smoking 03/29/2020 12:00:00 AM EDT Current every day smoker co mpleted Current every day smoker [facility] Vital Signs ID Date Data Source UNK Name Value Range Interpretation Code Description Data Source(s) Systolic blood pressure 124 mm[Hg] 124 mm[Hg] M [facility] ([facility], ) Diastolic blood pressure 78 mm[Hg] 78 mm[Hg] [facility] ([facility]) Body height 71 [in_i] 71 [in_i] [facility] ([facility]) 5'11" Body weight 140.12 [lb_av] 140.12 [lb_av] [facility] ([facility]) Body mass index (BMI) [Ratio] 19.5 kg/m2 19.5 k g/m2 [facility] ([facility]) [address] body weight 172 [lb_av] 172 [lb_av] [facility] ([facility]) Body weight 63.561 kg 63.561 kg [facility] ([facility]) Body surface area Derived from formula 1.81 m2 1.81 m2 [facility] ([facility]) Systolic blood pressure 135 mm[Hg] 135 mm[Hg] [facility] ([facility]) Diastolic blood pressure 91 mm[Hg] 91 mm[Hg] [facility] ([facility]) Body height 71 [in_i] 71 [in_i] [facility] ([facility]) 5'11" Body weight 142.38 [lb_av] 142.38 [lb_av] [facility] ([facility]) Body mass index (BMI) [Ratio] 19.9 kg/m2 19.9 k g/m2 [facility] ([facility]) [address] body weight 172 [lb_av] 172 [lb_av] [facility] ([facility]) Body weight 64.581 kg 64.581 kg [facility] ([facility]) Body surface area Derived from formula 1.82 m2 1.82 m2 [facility] ([facility]) Systolic blood pressure 130 mm[Hg] 130 mm[Hg] [facility] ([facility]) Diastolic blood pressure 68 mm[Hg] 68 mm[Hg] [facility] ([facility]) Body height 71 [in_i] 71 [in_i] [facility] ([facility]) 5'11" Body weight 149.38 [lb_av] 149.38 [lb_av] [facility] ([facility]) Body mass index (BMI) [Ratio] 20.8 kg/m2 20.8 k g/m2 [facility] ([facility], ) [address] body weight 172 [lb_av] 172 [lb_av] [facility] ([facility]) Body weight 67.757 kg 67.757 kg [facility] ([facility]) Body surface area Derived from formula 1.86 m2 1.86 m2 [facility] ([facility]) Patient Treatment Plan of Care Planned Activity Planned Date Details Description Data Source (s) Famotidine 40 MG Oral Tablet 03/17/2020 12:00:00 AM EDT [facility] Omeprazole 40 MG Delayed Release Oral Capsule 03/12/2020 12:00:00 A M EDT [facility] montelukast 10 MG Oral Tablet 02/12/2020 12:00:00 AM EDT [facility]
[2021-04-04] MEDS ORDERED: AMOX875T2 (11:49)
[2021-04-04] MEDS ORDERED: TRAZ-189 PO (11:49)
--- NOTE | 2021-04-04 12:13 | REPVR ---
PROCEDURE INFORMATION: Exam: CT Head Without Contrast Exam date and time: 04/04/2021 11:31 AM Age: 40 years old Clinical indication: Altered mental status/memory loss TECHNIQUE: Imaging protocol: Computed tomography of the head without contrast. Radiation optimization: All CT scans at this facility use at least one of these dose optimization techniques: automated exposure control; mA and/or kV adjustment per patient size (includes targeted exams where dose is matched to clinical indication); or iterative reconstruction. COMPARISON: CT Head without contrast 11/10/2014 9:50 AM FINDINGS: Brain: Normal. No hemorrhage. Unremarkable white matter. No mass effect. Cerebral ventricles: No ventriculomegaly. Paranasal sinuses: Visualized sinuses are unremarkable. No fluid levels. Mastoid air cells: Visualized mastoid air cells are well aerated. Bones/joints: Unremarkable. No acute fracture. Soft tissues: Unremarkable. IMPRESSION: No acute intracranial abnormality. Electronically signed by: Kimi Owens On 04/04/2021 12:12:31 PM
[2021-04-04 12:41] LABS: VENOUS BASE EXCESS 3.9 (-2.0-2.0); VENOUS HCO3 28.7 MEQ/L (23.0-27.0); VENOUS PARTIAL PRESSURE CO2 44.1 mmHg (38.0-50.0); VENOUS PARTIAL PRESSURE O2 30.2 mmHg (30.0-50.0); VENOUS PH 7.432 UNITS (7.330-7.430); VENOUS STANDARD HCO3 26.9 MEQ/L; VENOUS TOTAL CO2 30.1 MEQ/L (24.0-28.0)
[2021-04-04 12:45] LABS: BASO # 0.1 10^3/uL (0.0-0.2); BASO % 0.8 % (0.0-1.0); HEMATOCRIT 36.3 % (42.0-52.0); HEMOGLOBIN 12.9 g/dl (13.5-17.5); LYMPH # 1.8 10^3/uL (1.5-5.0); LYMPH % 27.1 % (24.0-44.0); MEAN CORPUSCULAR HEMOGLOBIN 32.7 pg (27.0-33.0); MEAN CORPUSCULAR HGB CONC 35.5 g/dl (32.0-36.5); MEAN CORPUSCULAR VOLUME 92.1 fl (80.0-96.0); MONO # 0.8 10^3/uL (0.0-0.8); MONO % 12.5 % (2.0-8.0); NEUTROPHILS # 3.9 10^3/uL (1.5-8.5); NEUTROPHILS % 59.4 % (36.0-66.0); PLATELET COUNT, AUTOMATED 234 10^3/uL (150-450); RED BLOOD COUNT 3.94 10^6/uL (4.30-6.10); WHITE BLOOD COUNT 6.5 10^3/uL (4.0-10.0)
[2021-04-04 13:17] LABS: OSMOLALITY SERUM 283 MOSM/KG (275-295)
[2021-04-04 13:29] LABS: AMPHETAMINES LEVEL URINE NEGATIVE (NEGATIVE); BARBITURATES URINE NEGATIVE (NEGATIVE); BENZODIAZEPINES URINE POSITIVE (NEGATIVE); CANNABINOIDS URINE POSITIVE (NEGATIVE); COCAINE METABOLITE URINE NEGATIVE (NEGATIVE); METHADONE URINE NEGATIVE (NEGATIVE); OPIATES URINE NEGATIVE (NEGATIVE); PHENCYCLIDINE URINE NEGATIVE (NEGATIVE)
[2021-04-04 13:29] LABS: ACETAMINOPHEN LEVEL < 2.0 UG/ML (10.0-30.0); ALT/SGPT 48 U/L (12-78); BILIRUBIN,DIRECT 0.4 MG/DL (0.0-0.2); BLOOD UREA NITROGEN 2 MG/DL (7-18); CALCIUM LEVEL 8.4 MG/DL (8.5-10.1); CARBON DIOXIDE LEVEL 32 MEQ/L (21-32); CHLORIDE LEVEL 102 MEQ/L (98-107); CREATININE FOR GFR 0.79 MG/DL (0.70-1.30); ETHYL ALCOHOL (ETHANOL) < 0.003 % (0.000-0.010); GLOMERULAR FILTRATION RATE > 60.0 (>60); GLUCOSE, FASTING 105 MG/DL (70-100); POTASSIUM SERUM 2.7 MEQ/L (3.5-5.1); SALICYLATE LEVEL < 1.7 MG/DL (5.0-30.0); SODIUM LEVEL 141 MEQ/L (136-145); THYROID STIMULATING HORMONE 0.674 uIU/ML (0.358-3.740); TOTAL PROTEIN 6.5 GM/DL (6.4-8.2)
--- OUTSIDE RECORDS SUMMARY | 2021-04-04 13:45 | CCD ---
Author Author [facility] Organization [facility] Address Unknown Phone Unavailable Care Team Providers Care Pyridine Operator Name Role Phone Amity, Nohemy Kevin AUTOMOBILE UPHOLSTERER Unavailable Unavailable Amity, Nohemy Kevin AUTOMOBILE UPHOLSTERER Unavailable Unavailable Juan, Nohemy Kevin AUTOMOBILE UPHOLSTERER Unavailable Unavailable Juan, Nohemy Kevin AUTOMOBILE UPHOLSTERER Unavailable Unavailable Amity, Nohemy Kevin AUTOMOBILE UPHOLSTERER Unavailable Unavailable Amity, Nohemy Kevin AUTOMOBILE UPHOLSTERER Unavailable Unavailable Juan, Nohemy Kevin AUTOMOBILE UPHOLSTERER Unavailable Unavailable Juan, Nohemy Kevin AUTOMOBILE UPHOLSTERER Unavailable Unavailable Juan, Nohemy Kevin AUTOMOBILE UPHOLSTERER Unavailable Unavailable Amity, Nohemy Kevin AUTOMOBILE UPHOLSTERER Unavailable Unavailable Juan, Nohemy Kevin AUTOMOBILE UPHOLSTERER Unavailable Unavailable Juan, Nohemy Kevin AUTOMOBILE UPHOLSTERER Unavailable Unavailable Juan, Nohemy Kevin AUTOMOBILE UPHOLSTERER Unavailable Unavailable Amity, Nohemy Kevin AUTOMOBILE UPHOLSTERER Unavailable Unavailable Reva Park MD Unavailable Unavailable [...] MD Unavailable Unavailab le ARCHANA (PRASAD), Edis ALU MD Unavailable Unavailab le ARCHANA (PRASAD), Edis [...] Edis LAU MD Unavailable Unavailab le ARCHANA (PRAASD), Edis LAU MD Unavailable Unavailab le ARCHANA (PRASAD), Edis LAU MD Unavailable Unavailab le ARCHANA (PRASAD), Edis LAU MD Unavailable Unavailab le ARCHANA (PRASAD), Edis LAU MD Unavailable Unavailab le ARCHANA (PRASAD), Eids LAU MD Unavailable Unavailab le ARCHANA (PRASAD), [...] Unavailab LOI Mims MD Unavailable Unavailab HEATHER MismM Unavailable Unavailab PAOLA MimsRAMMARCINM Unavailable Unavailab PAOLA MimsRAMMARCINM Unavailable Unavailab LOI Mims MD Unavailable Unavailab LOI Mims MD Unavailable Unavailab LOI Mims MD Unavailable Unavailab BEENA MimsASLIVRAMMARCINM Unavailable Unavailab LOI Mims MD Unavailable Unavailab [...] is protected by Article 27-F of the [facility] Public Health law. If you continue you may have access to information: Regarding HIV / AIDS; Provided by facilities licensed or operated by the [facility] Office of Mental Health; or Provided by the [facility] Office for People With Developmental Disabilities. If such information is present, then the following [facility] mandated warning applies: This information has [...] law may result in a fine or usp sentence or both. A general authorization for the release of medical or other information is NOT sufficient authorization for further disc losure. Allergies and Adverse Reactions Type Description Substance Reaction Status Data Source(s ) Propensity to adverse reactions PEANUT-CONTAINING DRUG PRODU CTS Peanut- Containing Drug Products Active [facility] Family History Family Member Name Family Member Gender Family Member Status Date o f Status Description Data Source(s) Unknown Unknown Problem [facility] ([facility]) Unknown Male Problem [facility] ([facility]) Unknown Female Problem [facility] ([facility] Unknown Female Problem [facility] ([facility] Unknown Female Problem [facility] ([facility]) Unknown Female Problem [facility] ([facility]) Unknown Female Problem [facility] ([facility]) Encounters Encounter Providers Location Date Indications Data Source(s ) Outpatient Attender: Suha Valerio/Milana/Derrick/R eindl 12/29/2020 11:15:00 AM EDT [facility] ([facility] Outpatient Attender: Carlton Valerio/Milana/Derrick/Rein dl 10/20/2020 10:45:00 AM EDT [facility] ([facility] Attender: SID REDD MD ([place]) 0 08:20:12 PM EST [facility] Attender: SID REDD MD ([place]) 0 08:20:12 PM EST [facility] Outpatient Referrer: Reva Park MD MOB-MOB.PAT 05/14/2020 10:46:03 AM EST [facility] Outpatient Attender: LOI PLUNKETT MDReferrer: LOI SPARKS MD ES1-[id number] 05/05/2020 09:30:00 AM EST - 05/05/2020 11:59:00 PM EST [facility] Patient discharged. Outpatient Attender: Reva Park MDAdmitter: Reva Park MD [id number] 03/29/2020 03:28:43 PM EDT [facility] Outpatient Attender: Reva Park MDAdmitter: Reva Park MD [id number].[facility] 03/29/2020 03:20:23 PM EDT [facility] Outpatient Attender: LOI PLUNKETT MDReferrer: LOI SPARKS MD ES1-[id number].[facility] 03/29/2020 12:00:00 AM EDT [facility] Outpatient Attender: Kevin Valerio/Milana/Derrick/Ward ndl 02/04/2020 09:00:00 AM EDT [facility] ([facility]) Immunizations Vaccine Date Status Description Data Source(s) COVID-19 VACCINE Pfizer 09/17/2020 12:00:00 AM EDT completed [facility] Vaccine Series Complete: YESThis Data wa s Submitted to [facility] Via [employer]. COVID-19 VACCINE Pfizer 08/27/2020 12:00:00 AM EST completed [facility] Vaccine Series Complete: NOThis Data was Submitted to [facility] Via [employer]. Medications Medication Brand Name Start Date Product [...] 12/16/2020 12:00:00 AM EDT ORAL active [facility] ([facility] 1 gram 12/16/2020 12:00:00 [...] by mouth 2 (two) times a day [facility] 40 mg 03/17/2020 12:00:00 AM EDT [...] by mouth 2 (two) times a day [facility] 40 mg 03/12/2020 12:00:00 AM EDT capsule,delayed release (DR/EC) 60 TAKE ONE CAPSULE BY MOUTH TWICE A DAY TAKE ONE CAPSULE BY MOUTH TWICE A DAY SOLD: 03/14/2020 [facility] montelukast 10 MG Oral Tablet MONTELUKAST [...] active Take 10 mg by mouth daily [facility] 40 mg 12/10/2019 12:00:00 AM EDT capsule,delayed release (DR/EC) 60 TAKE ONE CAPSULE BY MOUTH TWICE A DAY TAKE ONE CAPSULE BY MOUTH TWICE A DAY SOLD: 02/15/2020 [facility] Insurance Providers Payer name Policy type / Coverage type Policy ID Covered democrat ID Covered democrat's relationship to garrett Policy Garrett Plan Information [facility] PPO POS [id number] POMCO U [id number] Spouse [id number] [place] [id number] [place] 302/307 [id number] SP [id number] [facility] SNEHAL [id number] SP [id number] [id number] [place] [id number] [place] 306/806 [id number] SP [id number] POMCO [id number] Spo [id number] [place] BCBS MEDICAID xxxxxxxxxxxx [place] BCBS MEDICAID [id number] Aria [id number] [facility] PPO POS [id number] 0 [id number] INSURANCE COVID-19 COVID Aria C OVID INSURANCE COVID-19 [id number] [employer] (pr) Commercial [id number] Family Dependent [id number] POMCO [id number] WI2 [id number] [employer] Commercial [id number] Family Dependent [employer] (pr) Commercial [id number] Family Dependent [employer] Commercial [id number] F amily Dependent [employer] Commercial [id number] Family Dependent POMCO O [id number] U [id number] BCBS [place] O [id number] SP [id number] [place] P[place] 302/[id number] SP [id number] BCBS [place] HMO [id number] SP [id number] [facility] (HMO) [id number] Self [id number] [employer] Commercial [id number] Family Dependent [id number] SELF PAY HEA UNAVAILABLE [id number] S UNAVAIL ABLE SELF PAY HEA UNAVAILABLE [id number] S UNAVAIL ABLE UNAVAILABLE UNAVAILA BLE POMCO HEA [id number] POMCO -O/P [id number] 19 [id number] POMCO PPO O [id number] P [id number] [employer] Commercial [id number] Family Dependent [id number] [employer] Commercial [id number] Family Dependent [id number] [facility] Commercial [id number] Family Dependent [id number] Problems, Conditions, and Diagnoses Code Display Name Description Problem Type Effective Dates Data Source(s) K21.9 Gastro-esophageal reflux disease without esophagitis Gastro-esophageal reflux disease without Diagnosis 05/18/2020 01:51:[address] [facility] U07.1 COVID-19 COVID-19 Diagnosis 05/14/2020 12:00:00 AM ES T [facility] K44.9 Diaphragmatic hernia without obstruction or gangrene Diaphragmatic hernia without obstruction Diagnosis 05/12/2020 12:39:35 PM [facility] K21.01 Gastro-esophageal reflux disease with es ophagitis, with bleeding Gastro- esophageal reflux disease with es Diagnosis 05/12/2020 12:39:35 PM [facility] Surgeries/Procedures Procedure Description Date Indications Data Source(s) OFFICE OUTPATIENT VISIT 15 MINUTES 12/29/2020 12:00:00 AM EDT [facility] ([facility]) Endoscopy Upper GI Biopsy 12/16/2020 12:00:00 AM [facility] OFFICE OUTPATIENT VISIT 25 MINUTES 10/20/2020 12:00:00 AM EDT [facility] Results ID Date Data Source [id number] 12/16/2020 09:31:00 AM EDT [facility] Name Value Range Interpretation Code Description Data Micaela rce(s) Supporting Document(s) Surgical pathology study Laboratory test result [facility]) FINAL DIAGNOSIS A-Stomach, antral biopsy: Gastric [...] MD 12/17/2020 1142 ID Date Data Source [id number] 07/22/2020 05:08:00 AM EST [facility] Name Value Range Interpretation Code Description Data Micaela rce(s) Supporting Document(s) SARS coronavirus 2 RNA Not Detected [facility] This lab was ordered by [facility] and reported by [facility]. ID Date Data Source [id number] 07/22/2020 04:29:00 AM EST [facility] Name Value Range Interpretation Code Description Data Micaela rce(s) Supporting Document(s) SARS COVID ANTIGEN NEGATIVE [facility] This lab was ordered by [facility] nd reported by [facility]. ID Date Data Source [id number] 03/06/2020 10:00:00 AM EDT [facility] Name Value Range Interpretation Code Description Data Micaela rce(s) Supporting Document(s) SARS coronavirus 2 RNA [facility] This lab was ordered by [facility] and reported by [facility]. ID Date Data Source [id number] 02/11/2020 06:50:00 AM EDT [facility] ) Name Value Range Interpretation Code Description Data Micaela rce(s) Supporting Document(s) Prothrombin Time 13.7 s 11.8-14.0 Normal (applies to non-numeric results) [facility] ([facility], ) Inr 1.03 Normal (applies to non-numeric resul ts) [facility] THERAPUTIC HUMAN INR VALUES INDICATIONS NORMAL RANGES PROPHYLAXIS/TREATMENT OF: VENOUS THROMBOSIS 2.0-3.0 PULMONARY EMBOLISM 2.0-3.0 PREVENTION OF SYSTEMIC EMBOLISM FROM: TISSUE HEART VALVES 2.0-3.0 ACUTE MYOCARDIAL INFARCTION 2.0-3.0 VALVULAR HEART DISEASE 2.0-3.0 ATRIAL FIBRILLATION 2.0-3.0 MECHANICAL VALVES(HIGH RISK) 2.5-3.5 RECURRENT MYOCARDIAL INFARCTION 2.5-3.5 Partial Thromboplastin Time 25.1 s 25.0-38.4 Norm al (applies to non-numeric results) [facility] ([facility]) ID Date Data Source [id number] 02/11/2020 06:50:00 AM EDT [facility] ([facility]) Name Value Range Interpretation Code Description Data Micaela rce(s) Supporting Document(s) Ast/Sgot 23 U/L 7-37 Normal (applies to non-numeric resul ts) [facility] ([facility]) Alkaline Phosphatase 135 U/L 45-117 Above high [facility] Alt/SGPT 30 U/L 12-78 Normal (applies to non-numeric resul ts) [facility]) Bilirubin,Direct 0.4 mg/dL 0.0-0.2 Above high normal [facility]) Bilirubin,Total 1.1 mg/dL 0.2-1.0 Above high normal [facility] ([facility]) Albumin/Globulin Ratio 1.1 Normal (applies to non-n umeric results) [facility] ([facility]) Total Protein 7.8 GM/DL 6.4-8.2 Normal (applies to non-numeric re sults) [facility] ([facility]) Albumin 4.1 GM/DL 3.2-5.2 Normal (applies to non-numeric resul ts) [facility] ([facility]) Procedure Social History Code Duration Value Status Description Data Source(s ) Alcohol intake 03/29/2020 12:00:00 AM EDT Yes completed [facility] Smoking 03/29/2020 12:00:00 AM EDT Current every day smoker co mpleted Current every day smoker [facility] Vital Signs ID Date Data Source UNK Name Value Range Interpretation Code Description Data Source(s) Systolic blood pressure 124 mm[Hg] 124 mm[Hg] M [facility] ([facility], ) Diastolic blood pressure 78 mm[Hg] 78 mm[Hg] [facility] ([facility]) Body height 71 [in_i] 71 [in_i] [facility] ([facility]) 5'11" Body weight 140.12 [lb_av] 140.12 [lb_av] [facility] ([facility]) Body mass index (BMI) [Ratio] 19.5 kg/m2 19.5 k g/m2 [facility] ([facility]) [place] body weight 172 [lb_av] 172 [lb_av] [facility] ([facility]) Body weight 63.561 kg 63.561 kg [facility] ([facility]) Body surface area Derived from formula 1.81 m2 1.81 m2 [facility] ([facility]) Systolic blood pressure 135 mm[Hg] 135 mm[Hg] [facility] ([facility]) Diastolic blood pressure 91 mm[Hg] 91 mm[Hg] [facility] ([facility]) Body height 71 [in_i] 71 [in_i] [facility] ([facility]) 5'11" Body weight 142.38 [lb_av] 142.38 [lb_av] [facility] ([facility]) Body mass index (BMI) [Ratio] 19.9 kg/m2 19.9 k g/m2 [facility] ([facility]) [place] body weight 172 [lb_av] 172 [lb_av] [facility] ([facility]) Body weight 64.581 kg 64.581 kg [facility] ([facility]) Body surface area Derived from formula 1.82 m2 1.82 m2 [facility] ([facility]) Systolic blood pressure 130 mm[Hg] 130 mm[Hg] M [facility] ([facility]) Diastolic blood pressure 68 mm[Hg] 68 mm[Hg] [facility] ([facility]) Body height 71 [in_i] 71 [in_i] [facility] ([facility]) 5'11" Body weight 149.38 [lb_av] 149.38 [lb_av] [facility] ([facility]) Body mass index (BMI) [Ratio] 20.8 kg/m2 20.8 k g/m2 [facility] ([facility], ) [place] body weight 172 [lb_av] 172 [lb_av] [facility] T ([facility]) Body weight 67.757 kg 67.757 kg [facility] ([facility]) Body surface area Derived from formula 1.86 m2 1.86 m2 [facility] ([facility]) Patient Treatment Plan of Care Planned Activity Planned Date Details Description Data Source (s) Famotidine 40 MG Oral Tablet 03/17/2020 12:00:00 AM EDT [facility] Omeprazole 40 MG Delayed Release Oral Capsule 03/12/2020 12:00:00 A M EDT [facility] montelukast 10 MG Oral Tablet 02/12/2020 12:00:00 AM EDT [facility]
--- NOTE | 2021-04-04 13:54 | REP ---
INDICATION: Altered Mental Status. COMPARISON: 11/29/2020. TECHNIQUE: Single portable AP view of the chest was performed. FINDINGS: There is no acute infiltrate or pulmonary edema. Lungs are clear. The heart is not significantly enlarged. The mediastinal silhouette is unremarkable. The visualized osseous structures are intact. IMPRESSION: No acute pulmonary disease. <Electronically signed by Mendoza Benjamin > 04/04/21 [id number]
[2021-04-04 14:30] LABS: VALPROIC ACID (DEPAKOTE) < 3.0 UG/ML (50.0-100.0)
[2021-04-04] MEDS ORDERED: POTASSIUM CHLORIDE 10MEQ SR TABLET PO ONE (14:30)
[2021-04-04 14:44] LABS: MAGNESIUM LEVEL 1.4 MG/DL (1.8-2.4)
[2021-04-04] MEDS ORDERED: MAG SULF 1GM/100ML (MAG RUN) 1 GM in IV 1 EA IV ONE (15:35)
[2021-04-04] MEDS ORDERED: diphenhydrAMINE 50MG/ML VIAL (J1200) IV ONE (15:50)
[2021-04-04] MEDS ORDERED: ACETAMINOPHEN 500 MG TAB PO ONE (15:50)
[2021-04-04] MEDS ORDERED: NS 1,000 ML IV ONE (15:50)
[2021-04-04] MEDS ORDERED: KETOROLAC 30 MG/ML 1ML VIAL IV ONE (15:50)
[2021-04-04] MEDS ORDERED: METOCLOPRAMIDE INJ 10MG/2ML VIAL (J2765 PER 1) IV ONE (15:50)
[2021-04-04] MEDS ORDERED: NICOTINE 21MG/24HR 1 EA TRANSDERMAL TD ONE (16:20)
[2021-04-04 16:55] LABS: RSV AMPLIFICATION NEGATIVE (NEGATIVE)
[2021-04-04] MEDS ORDERED: LORazepam 2 MG TAB PO PRN (17:15)
[2021-04-04] MEDS ORDERED: HOME MED LIST COMPLETE! XX SCH (17:30)
--- OUTSIDE RECORDS SUMMARY | 2021-04-04 17:43 | CCD ---
Author Author [facility] Organization [facility] Address Unknown Phone Unavailable Care Team Providers Care Emergency Man Name Role Phone Juan, Nohemy Kevin TEXTILE TECHNOLOGIST Unavailable Unavailable [place], Nohemy Kevin TEXTILE TECHNOLOGIST Unavailable Unavailable [place], Nohemy Kevin TEXTILE TECHNOLOGIST Unavailable Unavailable Juan, Nohemy Kevin TEXTILE TECHNOLOGIST Unavailable Unavailable [place], Nohemy Kevin TEXTILE TECHNOLOGIST Unavailable Unavailable Juan, Nohemy Kevin TEXTILE TECHNOLOGIST Unavailable Unavailable [place], Onhemy Kevin TEXTILE TECHNOLOGIST Unavailable Unavailable Juan, Nohemy Kevin TEXTILE TECHNOLOGIST Unavailable Unavailable [place], Nohemy Kevin TEXTILE TECHNOLOGIST Unavailable Unavailable [place], Nohemy Kevin TEXTILE TECHNOLOGIST Unavailable Unavailable [place], Nohemy Kevin TEXTILE TECHNOLOGIST Unavailable Unavailable Juan, Nohemy Kevin TEXTILE TECHNOLOGIST Unavailable Unavailable [place], Nohemy Kevin TEXTILE TECHNOLOGIST Unavailable Unavailable [place], Nohemy Kevin TEXTILE TECHNOLOGIST Unavailable Unavailable Reva Park MD Unavailable Unavailable Reva Park MD Unavailable Unavailable Reva Park MD Unavailable Unavailable Reva Park MD Unavailable Unavailable Reva Park MD Unavailable Unavailable [place], Borys MD Unavailable [...] MD Unavailable Unavailab le ARCHANA (PRASAD), Edis LUA MD Unavailable Unavailab le ARCHANA (PRASAD), Edis [...] (PRASAD), Edis LAU MD Unavailable Unavailab le ARCAHNA (PRASAD), Edis LAU MD Unavailable Unavailab le [...] Unavailable Unavailab LOI Mims MD Unavailable Unavailab OLI Mims MD Unavailable Unavailab LOI Mims MD Unavailable Unavailab LOI Mims MD Unavailable Unavailab LOI Mims MD Unavailable Unavailab LOI Mims MD Unavailable Unavailab LOI Mims MD Unavailable Unavailab OLI Mims MD Unavailable Unavailab LOI Mims MD [...] is protected by Article 27-F of the [facility] Public Health law. If you continue you may have access to information: Regarding HIV / AIDS; Provided by facilities licensed or operated by the [facility] Office of Mental Health; or Provided by the [facility] Office for People With Developmental Disabilities. If such information is present, then the following [facility] mandated warning applies: This information has been [...] law may result in a fine or senior care sentence or both. A general authorization for the release of medical or other information is NOT sufficient authorization for further disc losure. Allergies and Adverse Reactions Type Description Substance Reaction Status Data Source(s ) Propensity to adverse reactions PEANUT-CONTAINING DRUG PRODU CTS Peanut- Containing Drug Products Active [facility] Family History Family Member Name Family Member Gender Family Member Status Date o f Status Description Data Source(s) Unknown Unknown Problem [facility] ([facility]) Unknown Male Problem [facility] ([facility]) Unknown Female Problem [facility] ([facility] Unknown Female Problem [facility] ([facility]) Unknown Female Problem [facility] ([facility]) Unknown Female Problem [facility] ([facility]) Unknown Female Problem [facility] ([facility] Encounters Encounter Providers Location Date Indications Data Source(s ) Outpatient Attender: Suha Valerio/Milana/Derrick/R eindl 12/29/2020 11:15:00 AM EDT [facility] ([facility] Outpatient Attender: Carlton Valerio/Milana/Derrick/Rein dl 10/20/2020 10:45:00 AM EDT [facility] ([facility]) Attender: SID REDD MD ([place]) 0 08:20:12 PM EST [facility] Attender: SID REDD MD ([place]) 0 08:20:12 PM EST [facility] Outpatient Referrer: Reva Park MD [facility] 05/14/2020 10:46:03 AM EST [facility] Outpatient Attender: LOI PLUNKETT MDReferrer: LOI SPARKS MD [facility] 05/05/2020 09:30:00 AM EST - 05/05/2020 11:59:00 PM EST [facility] Patient discharged. Outpatient Attender: Reva Park MDAdmitter: Reva Park MD [id number] 03/29/2020 03:28:43 PM EDT [facility] Outpatient Attender: Reva Park MDAdmitter: Reva Park MD [id number] 03/29/2020 03:20:23 PM EDT [facility] Outpatient Attender: LOI PLUNKETT MDReferrer: LOI SPARKS MD [facility] 03/29/2020 12:00:00 AM EDT [facility] Outpatient Attender: Kevin Valerio/Milana/Derrick/Ward ndl 02/04/2020 09:00:00 AM EDT [facility] ([facility]) Immunizations Vaccine Date Status Description Data Source(s) COVID-19 VACCINE Pfizer 09/17/2020 12:00:00 AM EDT completed [facility] Vaccine Series Complete: YESThis Data wa s Submitted to [facility]. COVID-19 VACCINE Pfizer 08/27/2020 12:00:00 AM EST [facility]: NOThis Data was Submitted to [facility]. Medications Medication Brand Name Start Date Product [...] MOUTH THREE TIMES A DAY SOLD: 01/23/2021 [facility] Sucralfate 1000 MG Oral Tablet Sucralfate 12/16/2020 12:00:00 AM EDT ORAL active [facility] ([facility] ) 1 gram 12/16/2020 12:00:00 AM EDT tablet 60 TAKE ONE TABLET BY MOUTH TWICE A DAY (MAY DISSOLVE IN WARM WATER IF YOU HAVE TROUBLE SWALLOWING) TAKE ONE TABLET BY MOUTH TWICE A DAY (MAY DISSOLVE IN WARM WATER IF YOU HAVE TROUBLE SWALLOWING) SOLD: 12/22/2020 [facility] 50 mg 12/15/2020 12:00:00 AM [...] by mouth 2 (two) times a day [facility] 40 mg 03/17/2020 12:00:00 AM EDT tablet [...] by mouth 2 (two) times a day [facility] 40 mg 03/12/2020 12:00:00 AM EDT capsule,delayed release (DR/EC) 60 TAKE ONE CAPSULE BY MOUTH TWICE A DAY TAKE ONE CAPSULE BY MOUTH TWICE A DAY SOLD: 03/14/2020 [facility] montelukast 10 MG Oral Tablet MONTELUKAST [...] active Take 10 mg by mouth daily [facility] 40 mg 12/10/2019 12:00:00 AM EDT capsule,delayed release (DR/EC) 60 TAKE ONE CAPSULE BY MOUTH TWICE A DAY TAKE ONE CAPSULE BY MOUTH TWICE A DAY SOLD: 02/15/2020 [facility] Insurance Providers Payer name Policy type / Coverage type Policy ID Covered alliance party ID Covered alliance party's relationship to garrett Policy Garrett Plan Information [facility] PPO POS [id number] POMCO U [id number] Spouse [id number] [place] [id number] 1 [id number] [place] 302/[id number] SP [id number] [facility] MANAGEMENT SNEHAL [id number] SP [id number] POMCO [id number] BCBS OF [place] 306/806 [id number] SP [id number] POMCO [id number] [facility] [id number] EXCELLUS BCBS MEDICAID xxxxxxxxxxxx EXCELLUS BCBS MEDICAID [id number] Aria [id number] [facility] PPO POS [id number] INSURANCE COVID-19 COVID Aria C OVID INSURANCE COVID-19 [id number] [id number] [place] (pr) Commercial [id number] Family Dependent [id number] POMCO [id number] [employer] Commercial [id number] Family Dependent [employer] (pr) Commercial [id number] Family Dependent [employer] Commercial [id number] F amily Dependent [employer] Commercial [id number] Family Dependent POMCO O [id number] U [id number] BCBS [place] O [id number] SP [id number] [place] PPO 302/307 [id number] SP [id number] BCBS [place] HMO [id number] SP [id number] [facility] Health Maintenance Organization (HMO) [id number] Self [id number] [employer] Commercial [id number] Family Dependent [id number] SELF PAY HEA UNAVAILABLE [id number] S UNAVAIL ABLE SELF PAY HEA UNAVAILABLE [id number] S UNAVAIL ABLE UNAVAILABLE UNAVAILA BLE POMCO HEA [id number] POMCO -O/P [id number] 19 [id number] POM[employer] PPO O [id number] P [id number] [employer] Commercial [id number] Family Dependent [id number] [employer] Commercial [id number] Family Dependent [id number] [employer] Commercial [id number] Family Dependent [id number] Problems, Conditions, and Diagnoses Code Display Name Description Problem Type Effective Dates Data Source(s) K21.9 Gastro-esophageal reflux disease without esophagitis Gastro-esophageal reflux disease without Diagnosis 05/18/2020 01:51:36 PM EST [facility] U07.1 COVID-19 COVID-19 Diagnosis 05/14/2020 12:00:00 AM ES T [facility] K44.9 Diaphragmatic hernia without obstruction or gangrene Diaphragmatic hernia without obstruction Diagnosis 05/12/2020 12:39:35 PM [facility] K21.01 Gastro-esophageal reflux disease with es ophagitis, with bleeding Gastro- esophageal reflux disease with es Diagnosis 05/12/2020 12:39:35 PM [facility] Surgeries/Procedures Procedure Description Date Indications Data Source(s) OFFICE OUTPATIENT VISIT 15 MINUTES 12/29/2020 12:00:00 AM EDT [facility] ([facility]) Endoscopy Upper GI Biopsy 12/16/2020 12:00:00 AM EDT [facility] ([facility]) OFFICE OUTPATIENT VISIT 25 MINUTES 10/20/2020 12:00:00 AM EDT [facility] ([facility]) Results ID Date Data Source [id number] 12/16/2020 09:31:00 AM EDT [facility] ([facility]) Name Value Range Interpretation Code Description Data Micaela rce(s) Supporting Document(s) Surgical pathology study Laboratory test result [facility] ([facility]) FINAL DIAGNOSIS A-Stomach, antral biopsy: Gastric mucosa [...] cm. All in one. -OA 12/17/2020 - 114 Signed IBRAHIMA MOE MD 12/17/2020 1142 ID Date Data Source [id number] 07/22/2020 05:08:00 AM EST [facility] Name Value Range Interpretation Code Description Data Micaela rce(s) Supporting Document(s) SARS coronavirus 2 RNA Not Detected [facility] This lab was ordered by [facility] and reported by [facility]. ID Date Data Source [id number] 07/22/2020 04:29:00 AM EST [facility] Name Value Range Interpretation Code Description Data Micaela rce(s) Supporting Document(s) SARS COVID ANTIGEN NEGATIVE [facility] This lab was ordered by [facility] nd reported by [facility]. ID Date Data Source [id number] 03/06/2020 10:00:00 AM EDT [facility] Name Value Range Interpretation Code Description Data Micaela rce(s) Supporting Document(s) SARS coronavirus 2 RNA [facility] This lab was ordered by [facility] and reported by [facility]. ID Date Data Source [id number] 02/11/2020 06:50:00 AM EDT [facility] ([facility], ) Name Value Range Interpretation Code Description Data Micaela rce(s) Supporting Document(s) Prothrombin Time 13.7 s 11.8-14.0 Normal (applies to non-numeric results) [facility] ([facility], ) Inr 1.03 Normal (applies to non-numeric resul ts) [facility] ([facility], ) THERAPUTIC HUMAN INR VALUES INDICATIONS NORMAL RANGES PROPHYLAXIS/TREATMENT OF: VENOUS THROMBOSIS 2.0-3.0 PULMONARY EMBOLISM 2.0-3.0 PREVENTION OF SYSTEMIC EMBOLISM FROM: TISSUE HEART VALVES 2.0-3.0 ACUTE MYOCARDIAL INFARCTION 2.0-3.0 VALVULAR HEART DISEASE 2.0-3.0 ATRIAL FIBRILLATION 2.0-3.0 MECHANICAL VALVES(HIGH RISK) 2.5-3.5 RECURRENT MYOCARDIAL INFARCTION 2.5-3.5 Partial Thromboplastin Time 25.1 s 25.0-38.4 Norm al (applies to non-numeric results) [facility] ([facility], ) ID Date Data Source [id number] 02/11/2020 06:50:00 AM EDT [facility] ([facility]) Name Value Range Interpretation Code Description Data Micaela rce(s) Supporting Document(s) Ast/Sgot 23 U/L 7-37 Normal (applies to non-numeric resul ts) [facility] ([facility], ) Alkaline Phosphatase 135 U/L 45-117 Above high normal [facility] ([facility]) Alt/SGPT 30 U/L 12-78 Normal (applies to non-numeric resul ts) [facility] ([facility]) Bilirubin,Direct 0.4 mg/dL 0.0-0.2 Above high normal [facility] ([facility]) Bilirubin,Total 1.1 mg/dL 0.2-1.0 Above high normal [facility] ([facility]) Albumin/Globulin Ratio 1.1 Normal (applies to non-n umeric results) [facility] ([facility]) Total Protein 7.8 GM/DL 6.4-8.2 Normal (applies to non-numeric re sults) [facility] ([facility]) Albumin 4.1 GM/DL 3.2-5.2 Normal (applies to non-numeric resul ts) [facility] ([facility]) Procedure Social History Code Duration Value Status Description Data Source(s ) Alcohol intake 03/29/2020 12:00:00 AM EDT Yes completed [facility] Smoking 03/29/2020 12:00:00 AM EDT Current every day smoker co mpleted Current every day smoker [facility] Vital Signs ID Date Data Source UNK Name Value Range Interpretation Code Description Data Source(s) Systolic blood pressure 124 mm[Hg] 124 mm[Hg] [facility] ([facility], ) Diastolic blood pressure 78 mm[Hg] 78 mm[Hg] [facility] ([facility]) Body height 71 [in_i] 71 [in_i] [facility] ([facility]) 5'11" Body weight 140.12 [lb_av] 140.12 [lb_av] [facility] ([facility]) Body mass index (BMI) [Ratio] 19.5 kg/m2 19.5 k g/m2 [facility] ([facility]) Donaldson body weight 172 [lb_av] 172 [lb_av] [facility] ([facility]) Body weight 63.561 kg 63.561 kg [facility] ([facility]) Body surface area Derived from formula 1.81 m2 1.81 m2 [facility] ([facility]) Donaldson body weight 172 [lb_av] 172 [lb_av] [facility] T ([facility]) Body weight 64.581 kg 64.581 kg [facility] ([facility]) Systolic blood pressure 135 mm[Hg] 135 mm[Hg] [facility] ([facility]) Diastolic blood pressure 91 mm[Hg] 91 mm[Hg] [facility] ([facility]) Body height 71 [in_i] 71 [in_i] [facility] ([facility]) 5'11" Body weight 142.38 [lb_av] 142.38 [lb_av] [facility] T ([facility]) Body mass index (BMI) [Ratio] 19.9 kg/m2 19.9 k g/m2 [facility] ([facility]) Body surface area Derived from formula 1.82 m2 1.82 m2 [facility] ([facility]) Systolic blood pressure 130 mm[Hg] 130 mm[Hg] [facility] ([facility]) Diastolic blood pressure 68 mm[Hg] 68 mm[Hg] [facility] ([facility]) Body height 71 [in_i] 71 [in_i] [facility] ([facility]) 5'11" Body weight 149.38 [lb_av] 149.38 [lb_av] [facility] T ([facility]) Body mass index (BMI) [Ratio] 20.8 kg/m2 20.8 k g/m2 [facility] ([facility], ) Donaldson body weight 172 [lb_av] 172 [lb_av] [facility] T ([facility], ) Body weight 67.757 kg 67.757 kg [facility] ([facility]) Body surface area Derived from formula 1.86 m2 1.86 m2 [facility] ([facility]) Patient Treatment Plan of Care Planned Activity Planned Date Details Description Data Source (s) Famotidine 40 MG Oral Tablet 03/17/2020 12:00:00 AM EDT [facility] Omeprazole 40 MG Delayed Release Oral Capsule 03/12/2020 12:00:00 A M EDT [facility] montelukast 10 MG Oral Tablet 02/12/2020 12:00:00 AM EDT [facility]
[2021-04-04] MEDS ORDERED: ALPRAZolam 0.5 MG TAB PO PRN (17:45)
[2021-04-04] MEDS ORDERED: SUMAtriptan SUCCINATE 25 MG TAB PO PRN (17:45)
--- NOTE | 2021-04-04 18:16 | HPEPDOC ---
[facility] Medical History & Physical Date of Admission Apr 04, 2021 Date of Service: Apr 04, 2021 History and Physical CHIEF COMPLAINT: short term memory loss, confusion HISTORY OF PRESENT ILLNESS: Patient is a 40-year-old male with a past medical history of TBI with subdural hematoma 8 years ago which was treated conservati vely, seizures, alcohol use disorder, chronic bronchitis and Lopez's esophagus. Patient states that he has had history of seizures in the past and used to take Depakote which he discontinued 3 months ago. He presented to work this morning and developed short-term memory loss that was witnessed by his coworkers. 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 He presents to the ER and is alert and oriented x3. He does not have any focal neurological deficits. He denies any palpitations chest pain shortness of breath nausea vomiting diarrhea fevers and chills. He does report a headache for which she was given ketorolac IV. ER contacted Dr. Iman Miller of neurology who recommended admission patient for observation and to obtain an EEG. Patient has an appointment with neurology on April [address] Paulino. He has not followed up in several years. Patient reports to me that he drinks daily and when he stops alcohol ingestion he develops withdrawal seizures. Patient will be started on CIWA protocol. PAST MEDICAL HISTORY: Lopez's Esophagus Chronic bronchitis ETOH use disorder TBI with subdural hematoma, conservatively managed Seizures PAST SURGICAL HISTORY: EGD - Lopez's Esophagus SOCIAL HISTORY: Occasional smoker Etoh use disorder, hx of withdrawal seizures FAMILY HISTORY: Reviewed with patient, provided no family hx ALLERGIES: Please see below. REVIEW OF SYSTEMS: 10 point ROS conducted, relevant findings are noted in HPI. HOME MEDICATIONS: Please see below. PHYSICAL EXAMINATION: VITAL SIGNS: please see below General: NAD, comfortable HEENT: PERRLA, EOMI, sclerae clear Neck: supple, normal ROM, no JVD Respiratory: lungs CTAB, no wheeze, no rales, no crackles CVS: RRR, normal S1, S2, no murmurs Abdo: soft, no masses, no hepatosplenomegaly, BS+, no rebound tenderness Extremities: no edema, pulses 2+ MSK: no joint deformities, normal ROM Neuro: no focal neuro deficits, moving all 4 extremities, CN2-12 intact. Strength 5/5 in all 4 extremities. No nystagmus. Psych: calm, cooperative, AAO x 3 LABORATORY DATA: See below. IMAGING: CT head wo contrast (04/04/21): FINDINGS: Brain: Normal. No hemorrhage. Unremarkable white matter. No mass effect. Cerebral ventricles: No ventriculomegaly. Paranasal sinuses: Visualized sinuses are unremarkable. No fluid levels. Mastoid air cells: Visualized mastoid air cells are well aerated. Bones/joints: Unremarkable. No acute fracture. Soft tissues: Unremarkable. IMPRESSION: No acute intracranial abnormality. CXR (04/04/21): FINDINGS: There is no acute infiltrate or pulmonary edema. Lungs are clear. The heart is not significantly enlarged. The mediastinal silhouette is unremarkable. The vi sualized osseous structures are intact. IMPRESSION: No acute pulmonary disease. MICROBIOLOGY: Please see below. ASSESSMENT: Patient is a 40-year-old male with a past medical history of TBI with subdural hematoma 8 years ago which was treated conservatively, seizures, alcohol use disorder, chronic bronchitis and Lopez's esophagus. Presented to the ER with short-term memory loss and confusion. History of alcohol abuse, with seizures. Discontinue Depakote 3 months ago. Has not followed up with neurology in a long time. Admitted to hospital service with management of acute encephalopathy. PLAN: Metabolic encephalopathy/short term memory loss/possible seizures/etoh withdrawal poss Wernicke's/Korsakoff? - patient is AAO x 3 in ER. No focal neuro deficits. CT head wo contrast shows n o CVA/hemorrhage - hx TBI, subdural hemorrhage, managed conservatively. - UA negative. CXR negative. - due to low grade temps will obtain bloodcx. blood cx ordered. - ER d/w Dr. Tolentino. Recommended not to resume depakote. Obtain EEG - hxof ETOH use. Start CIWA protocol. Start serax 10 mg TID. - EEG ordered - has f/u with Dr. Paulino on 04/27/21. ETOH use disorder - CIIA protocol - serax 10 mg TID ordered to prevent withdrawals Barretts' Esophagus - resume PPI omepBID hx of TBI - resume trazodone, sumatriptan for migraines. DVT ppx: SCDs. TEDs. Vital Signs Vital Signs Date Time Temp Pulse Resp B/P (MAP) Pulse Ox O2 Delivery O2 Flow Rate FiO2 04/04/21 12:30 99.8 93 137/92 (107) 99 04/04/21 11:23 18 Room Air Laboratory Data Labs 24H Laboratory Tests 2 04/04/21 12:23: Immature Granulocyte % (Auto) 0.2, Neutrophils (%) (Auto) 59.4, Lymphocytes (%) (Auto) 27.1, Monocytes (%) (Auto) 12.5H, Eosinophils (%) (Auto) 0.0, Basophils (%) (Auto) 0.8, Neutrophils # (Auto) 3.9, Lymphocytes # (Auto) 1.8, Monocytes # (Auto) 0.8, Eosinophils # (Auto) 0.0, Basophils # (Auto) 0.1, Nucleated Red Blood Cells % (auto) 0.0, Anion Gap 7L, Glomerular Filtration Rate > 60.0, Osmolality 283, Calcium Level 8.4L, Magnesium Level 1.4L, Total Bilirubin 1.0, Direct Bilirubin 0.4H, Aspartate Amino Transf (AST/SGOT) 57H, Alanine Aminotransferase (ALT/SGPT) 48, Alkaline Phosphatase 80, Ammonia 26, Total Protein 6.5, Albumin 3.0L, Albumin/Globulin Ratio 0.9, Thyroid Stimulating Hormone (TSH) 0.674, Salicylates Level < 1.7L, Acetaminophen Level < 2.0L, Valproic Acid (Depakene) Level < 3.0L, Ethyl Alcohol Level < 0.003 04/04/21 12:31: Blood Gas Bicarbonate Standard 26.9, Venous Blood pH 7.432H, Venous Blood Partial Pressure CO2 44.1, Venous Blood Partial Pressure O2 30.2, Venous Blood Total Carbon Dioxide 30.1H, Venous Blood HCO3 28.7H, Venous Blood Oxygen Satu ration 55.0L, Venous Blood Base Excess 3.9H 04/04/21 12:42: Urine Opiates Screen NEGATIVE, Urine Methadone Screen NEGATIVE, Urine Barbiturates Screen NEGATIVE, Urine Phencyclidine Screen NEGATIVE, Urine Amphetamines Screen NEGATIVE, Urine Benzodiazepines Screen POSITIVEH, Urine Cocaine Metabolite Screen NEGATIVE, Urine Cannabinoids Screen POSITIVEH 04/04/21 12:43: Urine Color YELLOW, Urine Appearance HAZY, Urine pH 6.0, Urine Specific [place] 1.013, Urine Protein NEGATIVE, Urine Glucose (UA) NEGATIVE, Urine Ketones NEGATIVE, Urine Blood NEGATIVE, Urine Nitrite NEGATIVE, Urine Bilirubin NEGATIVE, Urine Urobilinogen 0.2, Urine Leukocyte Esterase NEGATIVE, Urine WBC (Auto) 5H, Urine RBC (Auto) 0, Urine Hyaline Casts (Auto) 0, Urine Bacteria (Auto) NEGATIVE, Urine Squamous Epithelial Cells 0, Urine Mucus (Auto) MODERATE, Urine Sperm (Auto) 04/04/21 15:58: Coronavirus (COVID-19)(PCR) NEGATIVE, Influenza Type A (RT-PCR) NEGATIVE, Influenza Type B (RT-PCR) NEGATIVE, Respiratory Syncytial Virus (PCR) NEGATIVE CBC/BMP Laboratory Tests 04/04/21 12:23 Home Medications Scheduled Famotidine (Famotidine) 40 Mg Tablet, 40 MG PO BID Metoclopramide HCl (Metoclopramide HCl) 10 Mg Tablet, 10 MG PO TID Multivitamins (Thera M Plus Tablet) 1 Each Tablet, 1 TAB PO DAILY Omeprazole (Omeprazole) 40 Mg Capsule.dr, 40 MG PO BID Scheduled PRN Acetaminophen (Acetaminophen) 325 Mg Tablet, 650 MG PO Q4H PRN for HEADACHE Alprazolam (Alprazolam) 0.5 Mg Tab, 0.5 MG PO BID PRN for ANXIETY/AGITATION Sumatriptan Succinate (Sumatriptan Succinate) 50 Mg Tablet, 50 MG PO DAILY PRN for MIGRAINE Trazodone HCl (Trazodone HCl) 100 Mg Tablet, 100 MG PO QHS PRN for INSOMNIA Allergies Coded Allergies: Peanut (Unverified Allergy, Severe, THROAT SWELLING, 12/15/20) Per Pt, THROAT SWELLING W/ANY TYPE OF PEANUT PRODUCTS. codeine (Verified Allergy, Intermediate, SYNCOPE, 12/15/20) A-FIB/CHADSVASC A-FIB History Current/History of A-Fib/PAF?: No JADA ADDISON MD Apr 04, 2021 18:16
[2021-04-04] MEDS ORDERED: traZODone 100 MG TAB PO SCH (21:00)
[2021-04-04] MEDS: OMEPRAZOLE 20 MG CAP PO SCH (22:24)
[2021-04-04] MEDS: OXAZEPAM 10 MG CAP PO SCH (22:25)
[2021-04-04] MEDS: THIAMINE 100 MG TAB PO SCH (22:25)
[2021-04-04 22:35] VITALS: BP 125/80
[2021-04-04 23:07] VITALS: BP 124/73
--- NOTE | 2021-04-05 01:12 | ECGEPIP ---
[facility] - ED Test Date: 2021-04-04 Pat Name: SANA ALONSO Department: Room: - Gender: Male Bilingual Account Manager: GARCÍA : 1980 Requested By: DAMIEN Orozco Order Number: [id number] Reading MD: Damien Khalil Measurements Intervals [place] Rate: 60 P: 49 NV: 132 QRS: 66 QRSD: 96 T: 50 QT: 530 QTc: 530 Interpretive Statements Normal sinus rhythm Nonspecific ST-T wave abnormalities Prolonged QTc interval Similar to tracing done 10-11-20 Electronically Signed on 04-05-2021 1:12:19 EDT by Damien Khalil
[2021-04-05 05:29] VITALS: BP 132/78
[2021-04-05 06:26] LABS: BASO % 0.6 % (0.0-1.0); EOS # 0.1 10^3/uL (0.0-0.5); EOS % 1.2 % (0.0-3.0); HEMATOCRIT 31.1 % (42.0-52.0); HEMOGLOBIN 11.1 g/dl (13.5-17.5); LYMPH # 1.9 10^3/uL (1.5-5.0); LYMPH % 37.7 % (24.0-44.0); MEAN CORPUSCULAR HEMOGLOBIN 33.3 pg (27.0-33.0); MEAN CORPUSCULAR HGB CONC 35.7 g/dl (32.0-36.5); MEAN CORPUSCULAR VOLUME 93.4 fl (80.0-96.0); MONO # 0.7 10^3/uL (0.0-0.8); MONO % 14.3 % (2.0-8.0); NEUTROPHILS # 2.3 10^3/uL (1.5-8.5); PLATELET COUNT, AUTOMATED 207 10^3/uL (150-450); RED BLOOD COUNT 3.33 10^6/uL (4.30-6.10)
[2021-04-05 07:01] LABS: BLOOD UREA NITROGEN 3 MG/DL (7-18); CHLORIDE LEVEL 106 MEQ/L (98-107); CREATININE FOR GFR 0.69 MG/DL (0.70-1.30); GLOMERULAR FILTRATION RATE > 60.0 (>60); GLUCOSE, FASTING 92 MG/DL (70-100); POTASSIUM SERUM 2.9 MEQ/L (3.5-5.1); SODIUM LEVEL 142 MEQ/L (136-145)
[2021-04-05 07:02] LABS: ALBUMIN 2.3 GM/DL (3.2-5.2); ALT/SGPT 47 U/L (12-78); BILIRUBIN,TOTAL 1.5 MG/DL (0.2-1.0); CALCIUM LEVEL 7.8 MG/DL (8.5-10.1); CARBON DIOXIDE LEVEL 31 MEQ/L (21-32); MAGNESIUM LEVEL 1.5 MG/DL (1.8-2.4); TOTAL PROTEIN 5.4 GM/DL (6.4-8.2)
[2021-04-05] MEDS ORDERED: MAG SULF 1GM/100ML (MAG RUN) 1 GM in IV 1 EA IV ONE (08:00)
[2021-04-05] MEDS ORDERED: MAGNESIUM OXIDE 400MG TAB (MAG-OX) PO ONE (08:15)
[2021-04-05] MEDS ORDERED: POTASSIUM CHLORIDE 10MEQ SR TABLET PO ONE (08:30)
[2021-04-05] MEDS: OXAZEPAM 10 MG CAP PO SCH ×2 (08:31→15:59)
[2021-04-05] MEDS: OMEPRAZOLE 20 MG CAP PO SCH (08:31)
[2021-04-05] MEDS: THIAMINE 100 MG TAB PO SCH (08:32)
[2021-04-05] MEDS ORDERED: KCL 10MEQ/100ML SWI (KRUN) 10 MEQ in IV 1 EA IV ONE (09:00)
[2021-04-05] MEDS ORDERED: MAGNESIUM OXIDE 400MG TAB (MAG-OX) PO SCH (09:00)
[2021-04-05] MEDS ORDERED: FOLIC ACID 1 MG TAB PO SCH (09:00)
[2021-04-05] MEDS ORDERED: MULTIVITAMINS/MINERALS THERAP 1 TAB PO SCH (09:00)
[2021-04-05 13:00] VITALS: BP 130/84
[2021-04-05 14:00] VITALS: BP 130/84
[2021-04-05 15:32] LABS: BLOOD UREA NITROGEN 2 MG/DL (7-18); CARBON DIOXIDE LEVEL 31 MEQ/L (21-32); CHLORIDE LEVEL 106 MEQ/L (98-107); CREATININE FOR GFR 0.81 MG/DL (0.70-1.30); GLOMERULAR FILTRATION RATE > 60.0 (>60); GLUCOSE, FASTING 114 MG/DL (70-100); POTASSIUM SERUM 3.7 MEQ/L (3.5-5.1); SODIUM LEVEL 141 MEQ/L (136-145)
--- NOTE | 2021-04-05 19:17 | DS.PDOC ---
Discharge Summary General Date of Admission Apr 04, 2021 at 17:14 Date of Discharge 04/05/21 Discharge Summary PROCEDURES PERFORMED DURING STAY: EEG ADMITTING DIAGNOSES: Metabolic encephalopathy/short term memory loss Barretts' Esophagus hx of TBI ETOH use disorder DISCHARGE DIAGNOSES: Metabolic encephalopathy/short term memory loss Barretts' Esophagus hx of TBI ETOH use disorder Hypokalemia Hypomagnesemia COMPLICATIONS/CHIEF COMPLAINT: Etoh,H/O Seizure,Metabolic Encephalopathy,Mem Loss. HISTORY OF PRESENT ILLNESS:Patient is a 40-year-old male with a past medical history of TBI with subdural hematoma 8 years ago which was treated conser vatively, seizures, alcohol use disorder, chronic bronchitis and Lopez's esophagus. Presented to the ER with short-term memory loss and confusion. History of alcohol abuse, with seizures. Discontinue Depakote 3 months ago. Has not followed up with neurology in a long time. Admitted to hospital service with management of acute encephalopathy HOSPITAL COURSE: During the hospital stay metabolic encephalopathy resolved patient was alert oriented and awake in the morning. EEG was done, result pending. Patient developed hypomagnesemia and hypokalemia, electrolytes has been replaced. Patient received treatment with CIWA for possible alcohol withdrawal. However in the morning patient did not show any signs or symptoms of alcohol withdrawal. DISCHARGE MEDICATIONS: Please see below. ALLERGIES: Please see below. PHYSICAL EXAMINATION ON DISCHARGE: VITAL SIGNS: please see below General: NAD, comfortable HEENT: PERRLA, EOMI, sclerae clear Neck: supple, normal ROM, no JVD Respiratory: lungs CTAB, no wheeze, no rales, no crackles CVS: RRR, normal S1, S2, no murmurs Abdo: soft, no masses, no hepatosplenomegaly, BS+, no rebound tenderness Extremities: no edema, pulses 2+ MSK: no joint deformities, normal ROM Neuro: no focal neuro deficits, moving all 4 extremities, CN2-12 intact. Strength 5/5 in all 4 extremities. No nystagmus. Psych: calm, cooperative, AAO x 3 LABORATORY DATA: Please see below. IMAGING: CT head wo contrast (04/04/21): FINDINGS: Brain: Normal. No hemorrhage. Unremarkable white matter. No mass effect. Cerebral ventricles: No ventriculomegaly. Paranasal sinuses: Visualized sinuses are unremarkable. No fluid levels. Mastoid air cells: Visualized mastoid air cells are well aerated. Bones/joints: Unremarkable. No acute fracture. Soft tissues: Unremarkable. IMPRESSION: No acute intracranial abnormality. CXR (04/04/21): FINDINGS: There is no acute infiltrate or pulmonary edema. Lungs are clear. The heart is not significantly enlarged. The mediastinal silhouette is unremarkable. The visualized osseous structures are intact. IMPRESSION: No acute pulmonary disease. PROGNOSIS: Fair ACTIVITY: [As tolerated]. DIET: Regular DISCHARGE PLAN: Home DISPOSITION: 01 Home, Self-Care. DISCHARGE INSTRUCTIONS: Stop drinking alcohol ITEMS TO FOLLOWUP ON ON OUTPATIENT: Follow-up with neurologist and PCP DISCHARGE CONDITION: [Stable]. TIME SPENT ON DISCHARGE: 40 minutes. Vital Signs/I&Os Vital Signs Date Time Temp Pulse Resp B/P (MAP) Pulse Ox O2 Delivery O2 Flow Rate FiO2 04/05/21 14:00 99.0 84 18 130/84 (99) 04/04/21 22:35 95 04/04/21 21:15 Room Air I&O- Last 24 Hours up to 6 AM 04/05/21 06:00 Intake Total 1460 ml Output Total 250 ml Balance 1210 ml Laboratory Data Labs 24H Laboratory Tests 2 04/05/21 05:53: Immature Granulocyte % (Auto) 0.2, Neutrophils (%) (Auto) 46.0, Lymphocytes (%) (Auto) 37.7, Monocytes (%) (Auto) 14.3H, Eosinophils (%) (Auto) 1.2, Basophils (%) (Auto) 0.6, Neutrophils # (Auto) 2.3, Lymphocytes # (Auto) 1.9, Monocytes # (Auto) 0.7, Eosinophils # (Auto) 0.1, Basophils # (Auto) 0.0, Nucleated Red Blood Cells % (auto) 0.0, Anion Gap 5L, Glomerular Filtration Rate > 60.0, Avni cium Level 7.8L, Magnesium Level 1.5L, Total Bilirubin 1.5H, Aspartate Amino Transf (AST/SGOT) 68H, Alanine Aminotransferase (ALT/SGPT) 47, Alkaline Phosphatase 67, Total Protein 5.4L, Albumin 2.3#L, Albumin/Globulin Ratio 0.7 04/05/21 14:31: Anion Gap 4L, Glomerular Filtration Rate > 60.0, Calcium Level 8.0L CBC/BMP Laboratory Tests 04/05/21 05:53 04/05/21 14:31 Microbiology Microbiology 04/04/21 Blood Culture, Received Pending 04/04/21 Blood Culture, Received Pending Discharge Medications Scheduled Famotidine (Famotidine) 40 Mg Tablet, 40 MG PO BID, (Reported) Metoclopramide HCl (Metoclopramide HCl) 10 Mg Tablet, 1 TAB PO TID, (Reported) Multivitamins (Thera M Plus Tablet) 1 Each Tablet, 1 TAB PO QAM, (Reported) Omeprazole (Omeprazole) 40 Mg Capsule.dr, 40 MG PO BID, (Reported) Trazodone HCl (Trazodone HCl) 100 Mg Tablet, 100 MG PO QHS, (Reported) Scheduled PRN Acetaminophen (Acetaminophen) 325 Mg Tablet, 650 MG PO PRN PRN for HEADACHE, (Reported) Alprazolam (Alprazolam) 0.5 Mg Tab, 0.5 MG PO BID PRN for ANXIETY/AGITATION, (Reported) Sumatriptan Succinate (Sumatriptan Succinate) 50 Mg Tablet, 50 MG PO DAILYPRN PRN for MIGRAINE, (Reported) Allergies Coded Allergies: Peanut (Unverified Allergy, Severe, THROAT SWELLING, 12/15/20) Per Pt, THROAT SWELLING W/ANY TYPE OF PEANUT PRODUCTS. codeine (Verified Allergy, Intermediate, SYNCOPE, 12/15/20) JER MEHTA DO Apr 05, 2021 19:16
--- NOTE | 2021-04-06 10:39 | EEG ---
ELECTROENCEPHALOGRAM DATE: 04/05/2021 REFERRING PHYSICIAN: Dr. Theron Martinez. DIAGNOSIS: Altered mental status. EEG # [id number]. HISTORY: Patient is a 40-year-old man who was admitted to [facility] due to altered mental status, history of alcohol abuse, alcohol withdrawal seizures, memory loss, and confusion. He drinks alcohol daily. He has withdrawal seizures whenever he stops drinking. He is currently taking magnesium, potassium, trazodone, folic acid, thiamine, oxazepam, omeprazole, nicotine, etc. TECHNICAL DESCRIPTION: This digital EEG was recorded by 21-scalp, ear, and two EKG electrodes and was reviewed in bipolar and referential montages following reformatting in 10-20 international electrode placement system. INTERPRETATION: Patient was noted to be in awake and drowsy states during this EEG. Resting and awake background rhythm consisted of 12 Hz of activity measuring 15-40 microvolts in amplitude which was symmetric and reactive to eye opening. Attenuation of posterior dominant rhythm was seen during transition to drowsiness. No sleep was achieved. Hyperventilation was not performed. Photic stimulation remained unremarkable. EKG revealed normal sinus rhythm. No focal, lateralizing, or epileptiform abnormalities were seen. No relevant clinical activity was noted. CONCLUSION: This EEG in awake, drowsy states is within normal limits.
[2021-04-07] MEDS ORDERED: INFLUENZA QUADRIVALENT PF VACCINE 0.5ML SYRINGE IM ONE (09:00)
--- OUTSIDE RECORDS SUMMARY | 2021-05-30 06:58 | CCD | Continuity of Care Document ---
Author Author Bashir FIGUEROA Organization Unknown Address [address] [place] [address] Phone [phone] Care Team Providers Care Global Director Air And Climate Change Name Role Phone Rob Russell AUTM [phone] Problems Active Problems Provider Date Chronic tension-type headache Jennifer Paulino M.D. Onset: 03/2021 Chronic intractable migraine without aura Jennifer Paulino M.D. Onset: 04/27/2021 Mild major depression, single episode Jennifer Paulino M.D. On set: 04/27/2021 Mild cognitive disorder Jennifer Paulino M.D. Onset: Isolated seizures Jennifer Paulino M.D. Onset: 04/27/2021 Syncope and collapse Jennifer Paulino M.D. Onset: 04/27/2021 Essential tremor Jennifer Paulino M.D. Onset: 04/27/2021 Social History Type Date Description Comments Sex Unknown Tobacco Use Start: Unknown Patient has never smoked Allergies and adverse reactions Active Allergies Criticality Reaction | Severity Comments Date Codeine Unable to assess criticality 04/27/2021 Medications Active Medications SIG Qnty Indications Ordering Provide r Date Paroxetine HCL 20mg Tablets half a tab by mouth every night at bedtime for 2 weeks, & then 1 by mouth qhs. 30tabs Jennifer Paulino M.D. 04/27/2021 Immunizations Description No Information Available Vital Signs Date Vital Result Comment 04/27/2021 9:13am BP Systolic 120 mmHg BP Diastolic 75 mmHg Heart Rate 78 /min Respiratory Rate 14 /min Height 72 inches 6'0" Weight 140.00 lb BMI (Body Mass Index) 19.0 kg/m2 [place] Body Weight 178 lb Results Description No Information Available Procedures Date Code Description Status 05/18/2021 26861 MRI Brain W/O Contrast, Followed By Contrast Completed 05/18/2021 74593 MRI Brain W/O Contrast, Followed By Contrast Completed 05/18/2021 57362 MRI Brain W/O Contrast, Followed By Contrast Completed 05/18/2021 27358 Magnetic Resonance Angiogtaphy H ead W/O Contrast Material(S) Completed 05/18/2021 43386 Magnetic Resonance Angiogtaphy H ead W/O Contrast Material(S) Completed 05/18/2021 02074 Magnetic Resonance Angiogtaphy H ead W/O Contrast Material(S) Completed 04/27/2021 38784 Office/Outpatient New High MDM 6 0-74 Minutes Completed Medical Devices Description No Information Available Encounters Type Date Location Provider Dx Diagnosis Office Visit 04/27/2021 8:30a Main office - [place] Demarco Tavraez G44.221 Chronic tension-type headache, intractable G43.719 Chronic migraine w/o aura, i ntractable, w/o stat migr F32.0 Major depressive disorder, s elenita episode, mild G31.84 Mild cognitive impairment, s o stated G40.89 Other seizures R55 Syncope and collapse G25.2 Other specified forms of rhonda mor Assessments Date Code Description Provider 05/18/2021 G44.221 Chronic tension-type headache, i ntractable Jaquan Lofton MD 05/18/2021 G44.221 Chronic tension-type headache, i ntractable Alla Gramajo M.D. 05/18/2021 G44.221 Chronic tension-type headache, i ntractable MRI 05/18/2021 G43.719 Chronic migraine wit hout aura, intractable, without status migrainosus Jaquan Lofton MD 05/18/2021 G43.719 Chronic migraine wit hout aura, intractable, without status migrainosus Alla Gramajo M.D. 05/18/2021 G43.719 Chronic migraine wit hout aura, intractable, without status migrainosus MRI 05/18/2021 G40.89 Other seizures Jaquan Lofton MD 05/18/2021 G40.89 Other seizures Divine Sapp 05/18/2021 G40.89 Other seizures MRI 05/18/2021 R55 Syncope and collapse Jaquan Lofton MD 05/18/2021 R55 Syncope and collapse Alla Gramajo M.D. 05/18/2021 R55 Syncope and collapse MRI 04/27/2021 G44.221 Chronic tension-type headache, i ntractable Jennifer Paulino M.D. 04/27/2021 G43.719 Chronic migraine wit hout aura, intractable, without status migrainosus Jennifer Paulino M.D. 04/27/2021 F32.0 Major depressive disorder, singl e episode, mild Jennifer Paulino M.D. 04/27/2021 G31.84 Mild cognitive impairment, so st ated Jennifer Paulino M.D. 04/27/2021 G40.89 Other seizures Jennifer Paulino M.D. 04/27/2021 R55 Syncope and collapse Jennifer Paulino M.D. 04/27/2021 G25.2 Other specified forms of tremor Jennifer Paulino M.D. Plan of Treatment Future Appointment(s):* 06/15/2021 10:00 am - Ans/VS at [facility] * 06/21/2021 9:45 am - EEG at [facility] * 07/06/2021 10:45 am - Jennifer Paulino M.D. at [facility] Functional Status Description No Information Available Mental Status Description No Information Available Referrals Refer to Reason for Referral Status Appt Date Jennifer Paulino M.D. Created [facility] [address], [place] [id number] [phone] Jennifer Paulino M.D. Created [facility] [address] [place] [address] [phone]
--- OUTSIDE RECORDS SUMMARY | 2021-05-30 06:58 | CCD | Continuity of Care Document ---
Author Bashir Esquivel M.D. Organization Unknown Address [address] [place] [id number] Phone [phone] Care Team Providers Care Client Relations Representative Name Role Phone Rob Russell AUTM [phone] Problems Active Problems Provider Date Chronic tension-type [...] lb BMI (Body Mass Index) 19.0 kg/m2 [place] Body Weight 178 lb Results Description No Information Available Procedures Date Code Description Status 04/27/2021 21347 Office/Outpatient New High MDM 6 0-74 Minutes Completed Medical Devices Description No Information Available Encounters Type Date Location Provider Dx Diagnosis Office Visit 04/27/2021 8:30a [facility] Demarco Tavarez G44.221 Chronic tension-type headache, intractable G43.719 Chronic migraine w/o aura, i ntractable, w/o stat migr F32.0 Major depressive disorder, s elenita episode, mild G31.84 Mild cognitive impairment, s o stated G40.89 Other seizures R55 Syncope and collapse G25.2 Other specified forms of rhonda mor Assessments Date Code Description Provider 04/27/2021 G44.221 Chronic tension-type headache, i ntractable [...] Appointment(s):* 06/15/2021 10:00 am - Ans/VS at [facility] * 06/21/2021 9:45 am - EEG at [facility] * 07/06/2021 10:45 am - Jennifer Paulino M.D. at [facility] Functional Status Description No Information Available Mental Status Description No Information Available Referrals Description No Information Available
--- OUTSIDE RECORDS SUMMARY | 2021-05-30 06:58 | CCD ---
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 Name Role Phone Reva Park MD Unavailable [...] (PRASAD), Edis LAU MD Unavailable Unavailab le ARHCANA (PRASAD), Edis LAU MD Unavailable Unavailab le [...] (PRASAD), Edis LAU MD Unavailable Unavailab le RACHANA (PRASAD), Edis LAU MD Unavailable Unavailab le [...] LAU MD Unavailable Unavailab le ARCHANA (PRASAD), Edsi LAU MD Unavailable Unavailab le ARCHANA (PRASAD), [...] ARCHANA (PRASAD), Edis LAU MD Unavailable Unavailab Jennifer Ruiz MD Unavailable Unavailable Jennifer Paulino MD Unavailable Unavailable Jennifer Paulino MD Unavailable Unavailable Jennifer Paulino MD Unavailable Unavailable Jennifer Paulino MD Unavailable Unavailable Jennifer Paulino MD Unavailable Unavailable Jennifer Paulino MD Unavailable Unavailable Jennifer Paulino MD Unavailable Unavailable Jennifer Paulino MD Unavailable Unavailable Ali, Jennifer MD Unavailable Unavailable Ali, Jennifer MD Unavailable Unavailable Ali, Jennifer MD Unavailable Unavailable Ali, Jennifer MD Unavailable Unavailable Ali, Jennifer MD Unavailable Unavailable Ali, Jennifer MD Unavailable Unavailable Ali, Jennifer MD Unavailable Unavailable Ali, Jennifer MD Unavailable Unavailable Ali, Jennifer MD Unavailable Unavailable Ali, Jennifer MD Unavailable Unavailable Ali, Jennifer MD Unavailable Unavailable Ali, Jennifer MD Unavailable Unavailable Ali, Jennifer MD Unavailable Unavailable Ali, Jennifer MD Unavailable Unavailable Ali, Jennifer MD Unavailable Unavailable Ali, Jennifer MD Unavailable Unavailable Ali, Jennifer MD Unavailable Unavailable Ali, Jennifer MD Unavailable Unavailable Ali, Jennifer MD Unavailable Unavailable Ali, Jennifer MD Unavailable Unavailable Ali, Jennifer MD Unavailable Unavailable Ali, Jennifer MD Unavailable Unavailable Ali, Jennifer MD Unavailable Unavailable Ali, Jennifer MD Unavailable Unavailable Ali, Jennifer MD Unavailable Unavailable Ali, Jennifer MD Unavailable Unavailable Ali, Jennifer MD Unavailable Unavailable Ali, Jennifer MD Unavailable Unavailable Ali, Jennifer MD Unavailable Unavailable Ali, Jennifer MD Unavailable Unavailable Ali, Jennifer MD Unavailable Unavailable Ali, Jennifer MD Unavailable Unavailable Ali, Jennifer MD Unavailable Unavailable Ali, Jennifer MD Unavailable Unavailable Ali, Jennifer MD Unavailable Unavailable Ali, Jennifer MD Unavailable Unavailable Ali, Jennifer MD Unavailable Unavailable Ali, Jennifer MD Unavailable Unavailable Ali, Jennifer MD Unavailable Unavailable Ali, Jennifer MD Unavailable Unavailable Ali, Jennifer MD Unavailable Unavailable Ali, Jennifer MD Unavailable Unavailable Ali, Jennifer MD Unavailable Unavailable Nieto, L Suha RPA [...] Unavailab LOI Mims MD Unavailable Unavailab PAOLA MismRAMROSALINDA ANGELES Unavailable Unavailab LOI Mims MD Unavailable [...] LOI Mims MD Unavailable Unavailab le CLARE, BALASUBRAMANIAM MD [...] is protected by Article 27-F of the [facility] Public Health law. If you continue you may have access to information: Regarding HIV / AIDS; Provided by facilities licensed or operated by the [facility] Office of Mental Health; or Provided by the [facility] Office for People With Developmental Disabilities. If such information is present, then the following [facility] mandated warning applies: This information [...] law may result in a fine or skilled nursing sentence or both. A general authorization for the release of medical or other information is NOT sufficient authorization for further disc losure. Family History Family Member Name Family Member Gender Family Member Status Date o f Status Description Data Source(s) Unknown Unknown Problem [facility] ([facility]) Unknown Male Problem [facility] ([facility]) Unknown Female Problem MED[facility] ([facility]) Unknown Female Problem [facility] ([facility]) Unknown Female Problem [facility] ([facility]) Unknown Female Problem [facility] ([facility] Unknown Female Problem [facility] ([facility]) Encounters Encounter Providers Location Date Indications Data Source(s ) Outpatient Attender: Jennifer Paulino MD Main office - [place] 04/27/2021 07:30:00 AM EST [facility] ([facility]) Outpatient Attender: Suha Valerio/Milana/Derrick/R eindl 12/29/2020 11:15:00 AM EDT [facility] ([facility]) Outpatient Attender: Carlton Valerio/Milana/Derrick/Rein dl 10/20/2020 10:45:00 AM EDT [facility] ([facility] Attender: SID REDD MD ([place]) 0 08:20:12 PM EST [facility] Attender: SID REDD MD ([place]) 0 08:20:12 PM EST [facility] Outpatient Referrer: Reva Park MD [email or web address].PAT 05/14/2020 10:46:03 AM EST [facility] Outpatient Attender: LOI PLUNKETT MDReferrer: LOI SPARKS MD [id number] 05/05/2020 09:30:00 AM EST - 05/05/2020 11:59:00 PM EST [facility] Patient discharged. Outpatient Attender: Reva Park MDAdmitter: Reva Park MD [id number] 03/29/2020 03:28:43 PM EDT [facility] Outpatient Attender: Reva Park MDAdmitter: Reva Park MD [id number] 03/29/2020 03:20:23 PM EDT [facility] Immunizations Vaccine Date Status Description Data Source(s) COVID-19 VACCINE Moderna 05/04/2021 12:00:00 AM EST completed [facility] Vaccine Series Complete: YESThis Data wa s Submitted to [facility] Via [facility]. COVID-19 VACCINE Pfizer 09/17/2020 12:00:00 AM EDT completed [facility] Vaccine Series Complete: YESThis Data wa s Submitted to [facility] Via [facility]. COVID-19 VACCINE Pfizer 08/27/2020 12:00:00 AM EST completed [facility] Vaccine Series Complete: NOThis Data was Submitted to [facility] Via [facility]. Medications Medication Brand Name Start Date Product Form Dose Route Admi nistrative Instructions Pharmacy Instructions Status Indications Reaction Description Data Source(s) 10 mg 05/26/2021 12:00:00 AM EST tablet 90 TAKE ONE TABLET BY MOUTH THREE TIMES A DAY TAKE ONE TABLET BY MOUTH THREE TIMES A DAY SOLD: 05/28/2021 [facility] 40 mg 05/23/2021 12:00:00 AM EST capsule,delayed release (DR/EC) 180 TAKE ONE CAPSULE BY MOUTH TWICE A DAY TAKE ONE CAPSULE BY MOUTH TWICE A DAY SOLD: 05/28/2021 [facility] 20 mg 04/27/2021 12:00:00 AM EST tablet 30 TAKE 1/2 TABLET BY MOUTH AT BEDTIME FOR 2 WEEKS THEN TAKE 1 TABLET AT BEDTIME TAKE 1/2 TABLET BY MOUTH AT BEDTIME FOR 2 WEEKS THEN TAKE 1 TABLET AT BEDTIME SOLD: 05/01/2021 [facility] Paroxetine HCL Paroxetine HCL 04/27/2021 12:00:00 AM EST ORAL active MED[facility] ([facility]) Famotidine 40 MG Oral Tablet FAMOTIDINE 04/22/2021 12:00:00 AM EDT tab let 180 TAKE ONE TABLET BY MOUTH TWICE A DAY TAKE ONE TABLET BY MOUTH TWICE A DAY SOLD: 04/24/2021 [facility] 15 mg 04/20/2021 12:00:00 AM EDT tablet 90 TAKE ONE TABLET BY MOUTH EVERY DAY AT BEDTIME TAKE ONE TABLET BY MOUTH EVERY DAY AT BEDTIME SOLD: 04/24/2021 [facility] 50 mg 04/08/2021 12:00:00 AM EDT tablet 9 TAKE 1 TABLET BY MOUTH AT ONSET OF MIGRAINE HEADACHE ONCE A DAY NEEDED MAY TREAT 9 IN A MONTH TAKE 1 TABLET BY MOUTH AT ONSET OF MIGRAINE HEADACHE ONCE A DAY NEEDED MAY TREAT 9 IN A MONTH SOLD: 04/10/2021 [facility] 200 mg 03/24/2021 12:00:00 AM EDT capsule 12 TAKE ONE CAPSULE BY MOUTH THREE TIMES A DAY NEEDED FOR COUGH TAKE ONE CAPSULE BY MOUTH THREE TIMES A DAY NEEDED FOR COUGH SOLD: 04/10/2021 [facility] Amoxicillin 875 MG / Clavulanate [...] BY MOUTH THREE TIMES A DAY SOLD: 04/27/2021 [facility] 10 mg 02/24/2021 12:00:00 AM [...] 12/16/2020 12:00:00 AM EDT ORAL active MED[facility] ([facility]) 1 gram 12/16/2020 12:00:00 AM EDT tablet [...] MOUTH THREE TIMES A DAY SOLD: 09/26/2020 [facility] 24 HR Divalproex Sodium 500 MG [...] MOUTH EVERY DAY SOLD: 04/15/2020 [facility] Insurance Providers Payer name Policy type / Coverage type Policy ID Covered democrat ID Covered democrat's relationship to garrett Policy Garrett Plan Information [facility] PPO POS [id number] POMCO U [id number] Spouse [id number] [place] [id number] [place] 302/307 [id number] SP [id number] [facility] MANAGEMENT SNEHAL [id number] SP [id number] POMCO [id number] [id number] BC[place] 306/[id number] SP [id number] POMCO [id number] Spo [id number] EXCE[place] BCBS MEDICAID [id number] xxxxxxxxxxxx [id number] EXCELLUS BCBS MEDICAID [id number] Aria [id number] [facility] PPO POS [id number] INSURANCE COVID-19 COVID Aria C OVID INSURANCE COVID-19 [id number] [place] (pr) Commercial [id number] Family Dependent [id number] POMCO [id number] WI2 [id number] [employer] Commercial [id number] Family Dependent [employer] (pr) Commercial [id number] Family Dependent [employer] Commercial [id number] F amily Dependent [employer] Commercial [id number] Family Dependent POMCO O [id number] U [id number] BCBS [facility] [id number] SP [id number] BCBS [place] PPO 302/307 [id number] SP [id number] BCBS [facility] [id number] SP [id number] [facility] Health Maintenance Organization (HMO) [id number] Self [id number] [employer] Commercial [id number] Family Dependent [id number] SELF PAY HEA UNAVAILABLE [id number] S UNAVAIL ABLE SELF PAY HEA UNAVAILABLE [id number] S UNAVAIL ABLE UNAVAILABLE UNAVAILA BLE POMCO HEA [id number] POMCO -O/P [id number] 19 [id number] POMCO PPO O [id number] P [id number] [employer] Commercial [id number] Family Dependent [id number] [employer] Commercial [id number] Family Dependent [id number] [employer] Commercial [id number] Family Dependent [id number] Problems, Conditions, and Diagnoses Code Display Name Description Problem Type Effective Dates Data Source(s) K21.9 Gastro-esophageal reflux disease without esophagitis Gastro-esophageal reflux disease without Diagnosis 05/18/2020 01:51:36 PM [facility] U07.1 COVID-19 COVID-19 Diagnosis 05/14/2020 12:00:00 AM ES T [facility] K44.9 Diaphragmatic hernia without obstruction or gangrene Diaphragmatic hernia without obstruction Diagnosis 05/12/2020 12:39:35 PM [facility] K21.01 Gastro-esophageal reflux disease with es ophagitis, with bleeding Gastro- esophageal reflux disease with es Diagnosis 05/12/2020 12:39:35 PM [facility] G25.2 Essential tremor Essential tremor Problem 04/27/2021 12 :00:00 AM EST [facility] ([facility] R55 Syncope and collapse Syncope and collapse Problem 04/27/2021 12:00:00 AM EST [facility] ([facility] ) G40.89 Isolated seizures Isolated seizures Problem 04/27/2021 12:00:00 AM EST [facility] ([facility] ) G31.84 Mild cognitive disorder Mild cognitive disorder Proble m 04/27/2021 12:00:00 AM EST [facility] ([facility] ) F32.0 Mild major depression, single episode Mi ld major depression, single episode Problem 04/27/2021 12:00:00 AM EST [facility] ([facility] G43.719 Chronic intractable migraine without aur a Chronic intractable migraine without aura Problem 04/27/2021 12:00:00 AM EST [facility] ([facility] G44.221 Chronic tension-type headache Chronic tension-type hea dache Problem 04/27/2021 12:00:00 AM EST [facility] ([facility] ) Surgeries/Procedures Procedure Description Date Indications Data Source(s) Magnetic Resonance Angiogtaphy Head W/O Contrast Material(S) 05/18/2021 12:00:00 AM EST [facility] ([facility] Magnetic Resonance Angiogtaphy Head W/O Contrast Material(S) 05/18/2021 12:00:00 AM EST [facility] ([facility] ) Magnetic Resonance Angiogtaphy Head W/O Contrast Material(S) 05/18/2021 12:00:00 AM EST [facility] ([facility] MRI Brain W/O Contrast, Followed By Contrast 1 12:00:00 AM EST [facility] ([facility] ) MRI Brain W/O Contrast, Followed By Contrast 12:00:00 AM EST [facility] ([facility] ) MRI Brain W/O Contrast, Followed By Contrast 12:00:00 AM EST [facility] ([facility] ) OFFICE OUTPATIENT NEW 60 MINUTES 04/27/2021 12:00:00 A M EST [facility] ([facility] ) OFFICE OUTPATIENT VISIT 15 MINUTES 12/29/2020 12:00:00 AM EDT [facility] Endoscopy Upper GI Biopsy 12/16/2020 12:00:00 AM EDT [facility] OFFICE OUTPATIENT VISIT 25 MINUTES 10/20/2020 12:00:00 AM EDT [facility] Results ID Date Data Source [id number] 04/06/2021 02:33:00 PM EDT [facility] Name Value Range Interpretation Code Description Data Micaela rce(s) Supporting Document(s) SARS coronavirus 2 RNA [Presence] in Res piratory specimen by DEVIN with probe detection NEGATIVE [facility] This lab was ordered by [facility] a nd reported by [facility]. ID Date Data Source [id number] 04/04/2021 03:58:00 PM EDT [facility] Name Value Range Interpretation Code Description Data Micaela rce(s) Supporting Document(s) SARS coronavirus 2 RNA [Presence] in Res piratory specimen by DEVIN with probe detection NEGATIVE [facility] This lab was ordered by [facility] a nd reported by [facility]. ID Date Data Source [id number] 12/16/2020 09:31:00 AM EDT [facility] Name Value Range Interpretation Code Description Data Micaela rce(s) Supporting Document(s) Surgical pathology study Laboratory test result [facility] ([facility]) FINAL DIAGNOSIS A-Stomach, antral biopsy: Gastric mucosa with mild chronic inflammation and reactive changes. No H.pylori is identified. B-Esophagus, GE junction, biopsy: Lopez's mucosa present. Mild Chronic inflammation. No evidence of premalignant dysplasia. Squamous mucosa with reactive changes and reparative changes. 12/17/2020 - 1141 CLINICAL DIAGNOSIS Nausea and vomiting 12/16/2020 - [...] in one. -OA 12/17/2020 - 1141 Signed ADJAPONG,IBRAHIMA MD 12/17/2020 1142 ID Date Data Source [id number] 07/22/2020 05:08:00 AM EST [facility] Name Value Range Interpretation Code Description Data Micaela rce(s) Supporting Document(s) SARS coronavirus 2 RNA Not Detected [facility] This lab was ordered by [facility] and reported by [facility]. ID Date Data Source [id number] 07/22/2020 04:29:00 AM EST [facility] Name Value Range Interpretation Code Description Data Micaela rce(s) Supporting Document(s) SARS COVID ANTIGEN NEGATIVE [facility] This lab was ordered by [facility] nd reported by [facility]. Procedure Social History No Information Vital Signs ID Date Data Source UNK Name Value Range Interpretation Code Description Data Source(s) Body mass index (BMI) [Ratio] 19.0 kg/m2 19.0 k g/m2 [facility] [place] body weight 178 [lb_av] 178 [lb_av] [facility] T ([facility]) Respiratory rate 14 /min 14 /min [facility] ( [facility]) Body height 72 [in_i] 72 [in_i] [facility] ([facility]) 6'0" Body weight 140.00 [lb_av] 140.00 [lb_av] [facility] ([facility]) Systolic blood pressure 120 mm[Hg] 120 mm[Hg] [facility]) Diastolic blood pressure 75 mm[Hg] 75 mm[Hg] [facility] ([facility]) Heart rate 78 /min 78 /min [facility] ([facility]) Systolic blood pressure 124 mm[Hg] 124 mm[Hg] [facility] ([facility]) Diastolic blood pressure 78 mm[Hg] 78 mm[Hg] [facility] ([facility]) Body height 71 [in_i] 71 [in_i] [facility] ([facility]) 5'11" Body weight 140.12 [lb_av] 140.12 [lb_av] [facility] ([facility]) Body mass index (BMI) [Ratio] 19.5 kg/m2 19.5 k g/m2 [facility] [place] body weight 172 [lb_av] 172 [lb_av] [facility] ([facility]) Body weight 63.561 kg 63.561 kg [facility] ([facility]) Body surface area Derived from formula 1.81 m2 1.81 m2 [facility] ([facility]) Systolic blood pressure 135 mm[Hg] 135 mm[Hg] [facility] ([facility]) Diastolic blood pressure 91 mm[Hg] 91 mm[Hg] [facility] ([facility]) Body height 71 [in_i] 71 [in_i] [facility] ([facility]) 5'11" Body weight 142.38 [lb_av] 142.38 [lb_av] [facility] ([facility]) Body mass index (BMI) [Ratio] 19.9 kg/m2 19.9 k g/m2 [facility] ([facility]) [place] body weight 172 [lb_av] 172 [lb_av] [facility] ([facility]) Body weight 64.581 kg 64.581 kg [facility] ([facility]) Body surface area Derived from formula 1.82 m2 1.82 m2 [facility] ([facility])
== END 2021-04-05 16:26 | disposition home or self-care (01) ==
LOC: M ED 11:22 → M ED INP 11:23 → UNDOADMIN 17:14 → ENRESERV 18:34 → M MSPAV 21:32 → M ED INP 21:32 → UNDODISIN 04-05 16:26
PROVIDERS: ADMIT Family Medicine; ATTEND Family Medicine
DX: G93.41 Metabolic encephalopathy (principal); E83.42 Hypomagnesemia; Z87.820 Personal history of traumatic brain injury; Z20.822 Contact with and (suspected) exposure to COVID-19; F10.10 Alcohol abuse, uncomplicated; J42 Unspecified chronic bronchitis; K22.70 Barrett's esophagus without dysplasia; F17.210 Nicotine dependence, cigarettes, uncomplicated; R41.3 Other amnesia; E87.6 Hypokalemia; G40.909 Epilepsy, unspecified, not intractable, without status epilepticus; Z79.899 Other long term (current) drug therapy
CPT/HCPCS: 36415; 70450; 71045; 80048; 80053; 80076; 80143; 80164; 80307; 81001; 82077; 82140; 82803; 83735; 83930; 84443; 85025; 87040; 87631; 93005; 93041; 95819; 97161; 97165; 99285; J1200; J1885; J2765; J3475; J3480

== ENCOUNTER 2021-04-06 12:34 | Observation (INO) | payer BC ==
[~2021-04-06] VITALS: Ht 182.9 cm; Wt 61.9 kg
[~2021-04-06 12:34] MED LIST changes: +AMOX875T2; +TRAZ-189 PO
--- OUTSIDE RECORDS SUMMARY | 2021-04-06 12:41 | CCD ---
Author Author [facility] Organization [facility] Address Unknown Phone Unavailable Care Team Providers Care Desktop Support Specialist Name Role Phone Reva Park MD Unavailable Unavailable Reva Park [...] Ruddy Redd JR, MD Unavailable Unavailable Ruddy eRdd JR, MD Unavailable Unavailable Ruddy Redd JR, [...] Unavailab LOI Mims MD Unavailable Unavailab le CLARE, BEENAASUBRAMANIAM Unavailable Unavailab le CLARE, BALASUBRAMANIAM MD Unavailable Unavailab le CLARE, BALASUBRAMANIAM MD Unavailable Unavailab le CLARE, BALASUBRAMANIAM MD Unavailable Unavailab le CLARE, BALASUBRAMANIAM MD Unavailable Unavailab le CLARE, BALASUBRAMANIAM MD Unavailable Unavailab le CLARE, BALASUBRAMANIAM MD Unavailable Unavailab le CLARE, BALASUBRAMANIAM MD Unavailable Unavailab le CLARE, BALASUBRAMANIAM MD Unavailable Unavailab le CLARE, BALASUBRAMANIAM MD Unavailable Unavailab le CLARE, BALASUBRAMANIAM MD Unavailable Unavailab le CLARE, BALASUBRAMANIAM MD Unavailable Unavailab le CLARE, BALASUBRAMANIAM MD Unavailable Unavailab le CLARE, BALASUBRAMANIAM MD Unavailable Unavailab le CLARE, BALASUBRAMANIAM MD Unavailable Unavailab le CLARE, BALASUBRAMANIAM MD Unavailable Unavailab le CLARE, BALASUBRAMANIAM MD Unavailable Unavailab le CLARE, BALASUBRAMANIAM MD Unavailable Unavailab le CLARE, BALASUBRAMANIAM MD Unavailable Unavailab le CLARE, BALASUBRAMANIAM MD Unavailable Unavailab le CLARE, BALASUBRAMANIAM MD Unavailable Unavailab le CLARE, BALASUBRAMANIAM MD Unavailable Unavailab le CLARE, BALASUBRAMANIAM MD Unavailable Unavailab le Re-disclosure Warning The [...] is protected by Article 27-F of the [facility] Public Health law. If you continue you may have access to information: Regarding HIV / AIDS; Provided by facilities licensed or operated by the [facility] Office of Mental Health; or Provided by the [facility] Office for People With Developmental Disabilities. If such information is present, then the following [facility] mandated warning applies: This information has been [...] PRODU CTS Peanut- Containing Drug Products Active [facility] Family History Family Member Name Family Member Gender Family Member Status Date o f Status Description Data Source(s) Unknown Unknown Problem [facility] ([facility]) Unknown Male Problem [facility] ([facility]) Unknown Female Problem [facility] ([facility]) Unknown Female Problem [facility] ([facility]) Unknown Female Problem [facility] ([facility]) Unknown Female Problem [facility] ([facility]) Unknown Female Problem [facility] ([facility]) Encounters Encounter Providers Location Date Indications Data Source(s ) Outpatient Attender: Suha Valerio/Milana/Derrick/R eindl 12/29/2020 11:15:00 AM EDT [facility] ([facility] Outpatient Attender: Carlton Valerio/Milana/Derrick/T[place] dl 10/20/2020 10:45:00 AM EDT [facility] ([facility]) Attender: SID REDD MD ([place]) 0 08:20:12 PM EST [facility] Attender: SID REDD MD ([place]) 0 08:20:12 PM EST [facility] Outpatient Referrer: Reva Park MD [id number].PAT 05/14/2020 10:46:03 AM EST [facility] Outpatient Attender: LOI PLUNKETT MDReferrer: LOI SPARKS MD [id number] 05/05/2020 09:30:00 AM EST - 05/05/2020 11:59:00 PM EST [facility] Patient discharged. Outpatient Attender: Reva Park MDAdmitter: Reva Park MD [id number].EU 03/29/2020 03:28:[address] [facility] Outpatient Attender: Reva Park MDAdmitter: Reva Park MD [id number] 03/29/2020 03:20:[address] [facility] Outpatient Attender: LOI PLUNKETT MDReferrer: LOI SPARKS MD ES1-SJ.[facility] 03/29/2020 12:00:00 AM EDT [facility] Immunizations Vaccine Date Status Description Data Source(s) COVID-19 VACCINE [facility] 09/17/2020 12:00:00 AM EDT completed [facility] Vaccine Series Complete: YESThis Data wa s Submitted to [facility]. COVID-19 VACCINE [employer] 08/27/2020 12:00:00 AM EST completed [facility] Vaccine Series Complete: NOThis Data was Submitted to [facility]. Medications Medication Brand Name Start Date Product [...] MOUTH THREE TIMES A DAY SOLD: 02/27/2021 [facility] montelukast 10 MG Oral Tablet MONTELUKAST SODIUM 02/24/2021 12:0 0:00 AM EDT tablet 90 TAKE ONE TABLET BY MOUTH EVERY D AY TAKE ONE TABLET BY MOUTH EVERY DAY SOLD: 02/27/2021 [facility] Famotidine 40 MG Oral Tablet FAMOTIDINE 02/14/2021 12:00:00 AM EDT tab let 180 TAKE ONE TABLET BY MOUTH TWICE A DAY TAKE ONE TABLET BY MOUTH TWICE A DAY SOLD: 02/16/2021 [facility] Trazodone Hydrochloride 100 MG Oral Tablet TRAZODONE HCL 01/12/2021 12:00:00 AM EDT tablet 30 TAKE ONE TABLET BY MOUTH ONC E DAILY BEFORE BEDTIME TAKE ONE TABLET BY MOUTH ONCE DAILY BEFORE BEDTIME SOLD: 02/20/2021 [facility] Trazodone Hydrochloride 100 MG Oral Tablet [...] 12/16/2020 12:00:00 AM EDT ORAL active [facility] ([facility] 1 gram 12/16/2020 12:00:00 [...] TABLETS SHOULD LAST 30 DAYS SOLD: 12/16/2020 [facility] 40 mg 12/09/2020 12:00:00 AM EDT [...] TWICE A DAY SOLD: 12/12/2020 [facility] montelukast 10 MG Oral Tablet MONTELUKAST SODIUM 11/09/2020 12:0 0:00 AM EDT tablet 90 TAKE ONE TABLET BY MOUTH EVERY D AY TAKE ONE TABLET BY MOUTH EVERY DAY SOLD: 11/14/2020 [facility] Trazodone Hydrochloride 100 MG Oral Tablet TRAZODONE HCL 09/23/2020 12:00:00 AM EDT tablet 30 TAKE ONE TABLET BY MOUTH RADHA RY DAY AT BEDTIME TAKE ONE TABLET BY MOUTH EVERY DAY AT BEDTIME SOLD: 09/26/2020 [facility] 10 mg 09/23/2020 12:00:00 AM EDT [...] NEEDED, 9 PER MONTH SOLD: 08/25/2020 [facility] montelukast 10 MG Oral Tablet MONTELUKAST [...] 9 HEADACHES IN A MONTH SOLD: 04/23/2020 [facility] 20 mg 04/15/2020 12:00:00 AM EDT capsule,delayed release (DR/EC) 90 TAKE ONE CAPSULE BY MOUTH EVERY DAY TAKE ONE CAPSULE BY MOUTH EVERY DAY SOLD: 04/15/2020 [facility] Famotidine 40 MG Oral Tablet famotidine (PEPCID) 40 MG tablet famotidine (PEPCID) 40 MG tablet 03/17/2020 12:00:00 AM EDT 40 mg Oral active Take 40 mg by mouth 2 (two) times a day [facility] 40 mg 03/17/2020 12:00:00 AM EDT tablet 180 TAKE ONE TABLET BY MOUTH TWICE A DAY TAKE ONE TABLET BY MOUTH TWICE A DAY SOLD: 03/21/2020 [facility] Omeprazole 40 MG Delayed Release Oral Ca psule omeprazole (PRILOSEC) 40 MG capsule omeprazole (PRILOSEC) 40 MG capsule 03/12/2020 12:00:00 AM EDT 40 mg Oral active Take 40 mg by mouth 2 (two) times a day [facility] 40 mg 03/12/2020 12:00:00 AM EDT capsule,delayed release (DR/EC) 60 TAKE ONE CAPSULE BY MOUTH TWICE A DAY TAKE ONE CAPSULE BY MOUTH TWICE A DAY SOLD: 03/14/2020 [facility] montelukast 10 MG Oral Tablet MONTELUKAST SODIUM 02/12/2020 12:0 0:00 AM EDT tablet 90 TAKE ONE TABLET BY MOUTH EVERY D AY TAKE ONE TABLET BY MOUTH EVERY DAY SOLD: 02/15/2020 [facility] montelukast 10 MG Oral Tablet montelukast (SINGULAIR) 10 MG tablet montelukast (SINGULAIR) 10 MG tablet 02/12/2020 12:00:00 AM EDT 10 mg Oral active Take 10 mg by mouth daily [facility] 40 mg 12/10/2019 12:00:00 AM EDT capsule,delayed release (DR/EC) 60 TAKE ONE CAPSULE BY MOUTH TWICE A DAY TAKE ONE CAPSULE BY MOUTH TWICE A DAY SOLD: 02/15/2020 [facility] Insurance Providers Payer name Policy type / Coverage type Policy ID Covered constitution party ID Covered constitution party's relationship to garrett Policy Garrett [facility] Information [facility] [id number] POM[employer] U [id number] Spouse [id number] [place] [id number] 1 [id number] [place] 302/307 [id number] SP [id number] [facility] MANAGEMENT SNEHAL [id number] SP [id number] [id number] [place] [id number] BC[place] 306/[id number] SP [id number] POMCO [id number] Spo [id number] [place] BCBS MEDICAID [id number] xxxxxxxxxxxx [id number] [place] [employer]BS MEDICAID [id number] Aria [id number] [facility] PPO POS [id number] INSURANCE COVID-19 COVID Aria C OVID INSURANCE COVID-19 [id number] [id number] [employer] (pr) Commercial [id number] Family Dependent [id number] POMCO [id number] [place]2 [id number] [employer] Commercial [id number] Family Dependent [employer] (pr) Commercial [id number] Family Dependent [employer] Commercial [id number] F amily Dependent [employer] Commercial [id number] Family Dependent POMCO O [id number] U [id number] BCBS LARRY O [id number] SP [id number] [place] PPO 302/307 [id number] SP [id number] BCBS LARRY O [id number] SP [id number] [facility] Health Maintenance Organization (HMO) [id number] Self [id number] [employer] Commercial [id number] Family Dependent [id number] SELF PAY HEA UNAVAILABLE [id number] S UNAVAIL ABLE SELF PAY HEA UNAVAILABLE [id number] S UNAVAIL ABLE UNAVAILABLE UNAVAILA BLE POMCO HEA [id number] POMCO -O/P [id number] 19 [id number] [employer] PPO O [id number] P [id number] [employer] Commercial [id number] Family Dependent [id number] [employer] Commercial [id number] Family Dependent [id number] [employer] Commercial [id number] Family Dependent [id number] Problems, Conditions, and Diagnoses Code Display Name Description Problem Type Effective Dates Data Source(s) K21.9 Gastro-esophageal reflux disease without esophagitis Gastro-esophageal reflux disease without Diagnosis 05/18/2020 01:51:36 PM [facility] U07.1 COVID-19 COVID-19 Diagnosis 05/14/2020 12:00:00 AM ES T [facility] K44.9 Diaphragmatic hernia without obstruction or gangrene Diaphragmatic hernia without obstruction Diagnosis 05/12/2020 12:39:35 PM [facility] K21.01 Gastro-esophageal reflux disease with es ophagitis, with bleeding Gastro- esophageal reflux disease with es Diagnosis 05/12/2020 12:39:35 PM EST [facility] Surgeries/Procedures Procedure Description Date Indications Data Source(s) OFFICE OUTPATIENT VISIT 15 MINUTES 12/29/2020 12:00:00 AM EDT [facility] ([facility] ) Endoscopy Upper GI Biopsy 12/16/2020 12:00:00 AM EDT [facility] ([facility]) OFFICE OUTPATIENT VISIT 25 MINUTES 10/20/2020 12:00:00 AM EDT [facility] ([facility]) Results ID Date Data Source [id number] 12/16/2020 09:31:00 AM EDT [facility] ([facility]) Name Value Range Interpretation Code Description Data Micaela rce(s) Supporting Document(s) Surgical pathology study Laboratory test result [facility] ([facility]) FINAL DIAGNOSIS A-Stomach, antral biopsy: Gastric mucosa with mild chronic inflammation and reactive changes. No H.pylori is identified. B-Esophagus, GE junction, biopsy: Lopez's mucosa present. Mild Chronic inflammation. No evidence of premalignant dysplasia. Squamous mucosa with reactive changes and reparative changes. 12/17/2020 - 114 CLINICAL DIAGNOSIS Nausea and vomiting 12/16/2020 - 150 GROSS DIAGNOSIS A - Received in formalin labeled "antral biopsy for gastritis" and consists of a fragment of tissue, 0.2 x 0.1 x 0.1 cm. All in one. B - Received in formalin labeled "GE junction biopsy," and consists of a fragment of tissue, 0.1 x 0.1 x 0.1 cm. All in one. -OA 12/17/2020 - 1141 Signed IBRAHIMA MOE MD 12/17/2020 1142 ID Date Data Source [id number] 07/22/2020 05:08:00 AM EST [facility] Name Value Range Interpretation Code Description Data Micalea rce(s) Supporting Document(s) SARS coronavirus 2 RNA Not Detected [facility] This lab was ordered by [facility] and reported by [facility]. ID Date Data Source [id number] 07/22/2020 04:29:00 AM EST [facility] Name Value Range Interpretation Code Description Data Micaela rce(s) Supporting Document(s) SARS COVID ANTIGEN NEGATIVE [facility] This lab was ordered by [facility] nd reported by [facility]. ID Date Data Source [id number] 03/06/2020 10:00:00 AM EDT [facility] Name Value Range Interpretation Code Description Data Mciaela rce(s) Supporting Document(s) SARS coronavirus 2 RNA [facility] This lab was ordered by [facility] and reported by [facility]. ID Date Data Source [id number] 02/11/2020 06:50:00 AM EDT [facility] Name Value Range Interpretation Code Description Data Micaela rce(s) Supporting Document(s) Prothrombin Time 13.7 s 11.8-14.0 Normal (applies to non-numeric results) [facility] Inr 1.03 Normal (applies to non-numeric resul ts) [facility] THERAPUTIC HUMAN INR VALUES INDICATIONS NORMAL RANGES PROPHYLAXIS/TREATMENT OF: VENOUS THROMBOSIS 2.0-3.0 PULMONARY EMBOLISM 2.0-3.0 PREVENTION OF SYSTEMIC EMBOLISM FROM: TISSUE HEART VALVES 2.0-3.0 ACUTE MYOCARDIAL INFARCTION 2.0-3.0 VALVULAR HEART DISEASE 2.0-3.0 ATRIAL FIBRILLATION 2.0-3.0 MECHANICAL VALVES(HIGH RISK) 2.5-3.5 RECURRENT MYOCARDIAL INFARCTION 2.5-3.5 Partial Thromboplastin Time 25.1 s 25.0-38.4 Norm al (applies to non-numeric results) [facility] ID Date Data Source [id number] 02/11/2020 06:50:00 AM EDT [facility] ([facility]) Name Value Range Interpretation Code Description Data Micaela rce(s) Supporting Document(s) Ast/Sgot 23 U/L 7-37 Normal (applies to non-numeric resul ts) [facility] Alkaline Phosphatase 135 U/L 45-117 Above high normal [facility] ([facility]) Alt/SGPT 30 U/L 12-78 Normal (applies to non-numeric resul ts) [facility] Bilirubin,Direct 0.4 mg/dL 0.0-0.2 Above high normal [facility] ([facility]) Bilirubin,Total 1.1 mg/dL 0.2-1.0 Above high normal [facility] ([facility]) Albumin/Globulin Ratio 1.1 Normal (applies to non-n umeric results) [facility] ([facility]) Total Protein 7.8 GM/DL 6.4-8.2 Normal (applies to non-numeric re sults) [facility] ([facility]) Albumin 4.1 GM/DL 3.2-5.2 Normal (applies to non-numeric resul ts) [facility] ([facility]) Procedure Social History Code Duration Value Status Description Data Source(s ) Alcohol intake 03/29/2020 12:00:00 AM EDT Yes completed [facility] Smoking 03/29/2020 12:00:00 AM EDT Current every day smoker co mpleted Current every day smoker [facility] Vital Signs ID Date Data Source UNK Name Value Range Interpretation Code Description Data Source(s) Diastolic blood pressure 78 mm[Hg] 78 mm[Hg] [facility] ([facility]) Systolic blood pressure 124 mm[Hg] 124 mm[Hg] M [facility] ([facility]) Body height 71 [in_i] 71 [in_i] [facility] ([facility]) 5'11" Body weight 140.12 [lb_av] 140.12 [lb_av] [facility] ([facility]) Body mass index (BMI) [Ratio] 19.5 kg/m2 19.5 k g/m2 [facility] ([facility]) [place] body weight 172 [lb_av] 172 [lb_av] [facility] ([facility]) Body weight 63.561 kg 63.561 kg [facility] ([facility]) Body surface area Derived from formula 1.81 m2 1.81 m2 [facility] ([facility]) [place] body weight 172 [lb_av] 172 [lb_av] [facility] ([facility]) Systolic blood pressure 135 mm[Hg] 135 mm[Hg] M [facility] ([facility]) Diastolic blood pressure 91 mm[Hg] 91 mm[Hg] [facility] ([facility]) Body height 71 [in_i] 71 [in_i] [facility] ([facility]) 5'11" Body weight 142.38 [lb_av] 142.38 [lb_av] [facility] ([facility]) Body mass index (BMI) [Ratio] 19.9 kg/m2 19.9 k g/m2 [facility] ([facility]) Body weight 64.581 kg 64.581 kg [facility] ([facility]) Body surface area Derived from formula 1.82 m2 1.82 m2 [facility] ([facility]) Patient Treatment Plan of Care Planned Activity Planned Date Details Description Data Source (s) Famotidine 40 MG Oral Tablet 03/17/2020 12:00:00 AM EDT [facility] Omeprazole 40 MG Delayed Release Oral Capsule 03/12/2020 12:00:00 A M EDT [facility] montelukast 10 MG Oral Tablet 02/12/2020 12:00:00 AM EDT [facility]
--- NOTE | 2021-04-06 13:23 | REP ---
INDICATION: CHEST PAIN. COMPARISON: 04/04/2021 the latest prior also portable FINDINGS: The technique utilized in obtaining the radiograph has magnified the cardiac silhouette and accentuated the interstitial markings. The cardiomediastinal silhouette lung baig are unchanged. No acute patchy parenchymal opacities or pleural effusions have developed. The heart is not enlarged. The pleural angles are sharp. The osseous structures are stable and intact. IMPRESSION: There is no acute cardiopulmonary disease. There is no significant change compared to the prior exam. <Electronically signed by Paul Chua > 04/06/21 0014
--- NOTE | 2021-04-06 13:44 | ECGEPIP ---
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
[2021-04-06 13:57] LABS: BASO % 0.6 % (0.0-1.0); EOS % 0.8 % (0.0-3.0); HEMATOCRIT 36.1 % (42.0-52.0); HEMOGLOBIN 12.7 g/dl (13.5-17.5); LYMPH # 1.8 10^3/uL (1.5-5.0); LYMPH % 36.5 % (24.0-44.0); MEAN CORPUSCULAR HEMOGLOBIN 33.3 pg (27.0-33.0); MEAN CORPUSCULAR HGB CONC 35.2 g/dl (32.0-36.5); MEAN CORPUSCULAR VOLUME 94.8 fl (80.0-96.0); MONO # 0.6 10^3/uL (0.0-0.8); MONO % 12.9 % (2.0-8.0); NEUTROPHILS # 2.4 10^3/uL (1.5-8.5); PLATELET COUNT, AUTOMATED 223 10^3/uL (150-450); RED BLOOD COUNT 3.81 10^6/uL (4.30-6.10); WHITE BLOOD COUNT 4.8 10^3/uL (4.0-10.0)
--- OUTSIDE RECORDS SUMMARY | 2021-04-06 14:02 | CCD ---
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..] Unavailable Unavailab LOI Mims MD Unavailable Unavailab LIO Mims MD Unavailable Unavailab PAOLA MimsRAMROSALINDA ANGELES [...] is protected by Article 27-F of the [facility] Public Health law. If you continue you may have access to information: Regarding HIV / AIDS; Provided by facilities licensed or operated by the [facility] Office of Mental Health; or Provided by the [facility] Office for People With Developmental Disabilities. If such information is present, then the following [facility] mandated warning applies: This information has [...] law may result in a fine or half-way sentence or both. A general authorization for the release of medical or other information is NOT sufficient authorization for further disc losure. Allergies and Adverse Reactions Type Description Substance Reaction Status Data Source(s ) Propensity to adverse reactions PEANUT-CONTAINING DRUG PRODU CTS Peanut- Containing Drug Products Active [facility] Family History Family Member Name Family Member Gender Family Member Status Date o f Status Description Data Source(s) Unknown Unknown Problem [facility] ([facility]) Unknown Male Problem [facility] ([facility]) Unknown Female Problem [facility] ([facility]) Unknown Female Problem [facility] ([facility]) Unknown Female Problem [facility] ([facility]) Unknown Female Problem [facility] ([facility]) Unknown Female Problem [facility] ([facility]) Encounters Encounter Providers Location Date Indications Data Source(s ) Outpatient Attender: Suha Valerio/Milana/Derrick/R eindl 12/29/2020 11:15:00 AM EDT [facility] ([facility] Outpatient Attender: Carlton Valerio/Milana/Derrick/Troy dl 10/20/2020 10:45:00 AM EDT [facility] ([facility]) Attender: SID REDD MD ([place]) 0 08:20:12 PM EST [facility] Attender: SID REDD MD ([place]) 0 08:20:12 PM EST [facility] Outpatient Referrer: Reva Park MD MOB-MOB.PAT 05/14/2020 10:46:03 AM EST [facility] Outpatient Attender: LOI PLUNKETT MDReferrer: LOI SPARKS MD [id number] 05/05/2020 09:30:00 AM EST - 05/05/2020 11:59:00 PM EST [facility] Patient discharged. Outpatient Attender: Reva Park MDAdmitter: Reva Park MD [id number] 03/29/2020 03:28:43 PM EDT [facility] Outpatient Attender: Reva Park MDAdmitter: Reva Park MD [id number].EU 03/29/2020 03:20:23 PM EDT [facility] Outpatient Attender: LOI PLUNKETT MDReferrer: LOI SPARKS MD ES1-SJ.[facility] 03/29/2020 12:00:00 AM EDT [facility] Immunizations Vaccine Date Status Description Data Source(s) COVID-19 VACCINE [facility] 09/17/2020 12:00:00 AM EDT completed [facility] Vaccine Series Complete: YESThis Data wa s Submitted to [facility] Via [facility]. COVID-19 VACCINE [facility] 08/27/2020 12:00:00 AM EST completed [facility] Vaccine Series Complete: NOThis Data was Submitted to [facility] Via [facility]. Medications Medication Brand Name Start Date Product [...] by mouth 2 (two) times a day [facility] 40 mg 03/17/2020 12:00:00 AM EDT [...] by mouth 2 (two) times a day [facility] 40 mg 03/12/2020 12:00:00 AM EDT [...] active Take 10 mg by mouth daily [facility] 40 mg 12/10/2019 12:00:00 AM EDT capsule,delayed release (DR/EC) 60 TAKE ONE CAPSULE BY MOUTH TWICE A DAY TAKE ONE CAPSULE BY MOUTH TWICE A DAY SOLD: 02/15/2020 [facility] Insurance Providers Payer name Policy type / Coverage type Policy ID Covered democrat ID Covered democrat's relationship to garrett Policy Garrett [facility] [id number] POMCO U [id number] Spouse [id number] [place] [id number] 1 [id number] [place] 302/[id number] SP [id number] [facility] MANAGEMENT SNEHAL [id number] SP [id number] POMCO [id number] [place] [id number] BC[place] 306/806 [id number] SP [id number] POMCO [id number] Spo [id number] EXCELLUS BCBS MEDICAID [id number] xxxxxxxxxxxx [id number] [place] BCBS MEDICAID [id number] Aria [id number] [facility] PPO POS [id number] INSURANCE COVID-19 COVID Aria C OVID INSURANCE COVID-19 [id number] [id number] Pom[employer] (pr) Commercial [id number] Family Dependent [id number] POMCO [id number] WI2 [id number] [employer] Commercial [id number] Family Dependent [employer] (pr) Commercial [id number] Family Dependent [employer] Commercial [id number] F amily Dependent [employer] Commercial [id number] Family Dependent POMCO O [id number] U [id number] BCBS LARRY O [id number] SP [id number] [place] PPO 302/307 [id number] SP [id number] BCBS L[place]Y O [id number] SP [id number] [facility] Health Maintenance Organization (HMO) [id number] Self [id number] [employer] Commercial [id number] Family Dependent [id number] SELF PAY HEA UNAVAILABLE [id number] S UNAVAIL ABLE SELF PAY HEA UNAVAILABLE [id number] S UNAVAIL ABLE UNAVAILABLE UNAVAILA BLE POMCO HEA [id number] POMCO -O/P [id number] 19 [id number] POMCO PPO O [id number] P [id number] [employer] Commercial [id number] Family Dependent [id number] [employer] Commercial [id number] Family Dependent [id number] [employer] Commercial [id number] Family Dependent [id number] Problems, Conditions, and Diagnoses Code Display Name Description Problem Type Effective Dates Data Source(s) K21.9 Gastro-esophageal reflux disease without esophagitis Gastro-esophageal reflux disease without Diagnosis 05/18/2020 01:51:36 PM [facility] U07.1 COVID-19 COVID-19 Diagnosis 05/14/2020 12:00:00 AM ES T [facility] K44.9 Diaphragmatic hernia without obstruction or gangrene Diaphragmatic hernia without obstruction Diagnosis 05/12/2020 12:39:35 PM [facility] K21.01 Gastro-esophageal reflux disease with es ophagitis, with bleeding Gastro- esophageal reflux disease with es Diagnosis 05/12/2020 12:39:35 PM EST [facility] Surgeries/Procedures Procedure Description Date Indications Data Source(s) OFFICE OUTPATIENT VISIT 15 MINUTES 12/29/2020 12:00:00 AM EDT [facility] ([facility] ) Endoscopy Upper GI Biopsy 12/16/2020 12:00:00 AM EDT [facility] ([facility]) OFFICE OUTPATIENT VISIT 25 MINUTES 10/20/2020 12:00:00 AM EDT [facility] ([facility]) Results ID Date Data Source [id number] 12/16/2020 09:31:00 AM EDT [facility] ([facility]) Name Value Range Interpretation Code Description Data Micaela rce(s) Supporting Document(s) Surgical pathology study Laboratory test result [facility] ([facility]) FINAL DIAGNOSIS A-Stomach, antral biopsy: Gastric mucosa [...] MD 12/17/2020 1142 ID Date Data Source [id number] 07/22/2020 05:08:00 AM EST [facility] Name Value Range Interpretation Code Description Data Micaela rce(s) Supporting Document(s) SARS coronavirus [address] [facility] This lab was ordered by [facility] and reported by [facility]. ID Date Data Source [id number] 07/22/2020 04:29:00 AM EST [facility] Name Value Range Interpretation Code Description Data Micaela rce(s) Supporting Document(s) SARS COVID ANTIGEN NEGATIVE [facility] This lab was ordered by [facility] reported by [facility]. ID Date Data Source [id number] 03/06/2020 10:00:00 AM EDT [facility] Name Value Range Interpretation Code Description Data Micaela rce(s) Supporting Document(s) SARS coronavirus 2 RNA [facility] This lab was ordered by [facility] and reported by [facility]. ID Date Data Source [id number] 02/11/2020 06:50:00 AM EDT [facility] Name Value Range Interpretation Code Description Data Micaela rce(s) Supporting Document(s) Prothrombin Time 13.7 s 11.8-14.0 Normal (applies to non-numeric results) [facility] Inr 1.03 Normal (applies to non-numeric resul ts) [facility] THERAPUTIC HUMAN INR VALUES INDICATIONS NORMAL RANGES PROPHYLAXIS/TREATMENT OF: VENOUS THROMBOSIS 2.0-3.0 PULMONARY EMBOLISM 2.0-3.0 PREVENTION OF SYSTEMIC EMBOLISM FROM: TISSUE HEART VALVES 2.0-3.0 ACUTE MYOCARDIAL INFARCTION 2.0-3.0 VALVULAR HEART DISEASE 2.0-3.0 ATRIAL FIBRILLATION 2.0-3.0 MECHANICAL VALVES(HIGH RISK) 2.5-3.5 RECURRENT MYOCARDIAL INFARCTION 2.5-3.5 Partial Thromboplastin Time 25.1 s 25.0-38.4 Norm al (applies to non-numeric results) [facility] ID Date Data Source [id number] 02/11/2020 06:50:00 AM EDT [facility] ([facility]) Name Value Range Interpretation Code Description Data Micaela rce(s) Supporting Document(s) Ast/Sgot 23 U/L 7-37 Normal (applies to non-numeric resul ts) [facility] Alkaline Phosphatase 135 U/L 45-117 Above high normal [facility] ([facility]) Alt/SGPT 30 U/L 12-78 Normal (applies to non-numeric resul ts) [facility] Bilirubin,Direct 0.4 mg/dL 0.0-0.2 Above high normal M [facility] ([facility]) Bilirubin,Total 1.1 mg/dL 0.2-1.0 Above high normal [facility] ([facility]) Albumin/Globulin Ratio 1.1 Normal (applies to non-n umeric results) [facility] ([facility]) Total Protein 7.8 GM/DL 6.4-8.2 Normal (applies to non-numeric re sults) [facility] ([facility]) Albumin 4.1 GM/DL 3.2-5.2 Normal (applies to non-numeric resul ts) [facility] ([facility]) Procedure Social History Code Duration Value Status Description Data Source(s ) Alcohol intake 03/29/2020 12:00:00 AM EDT Yes completed [facility] Smoking 03/29/2020 12:00:00 AM EDT Current every day smoker co mpleted Current every day smoker [facility] Vital Signs ID Date Data Source UNK Name Value Range Interpretation Code Description Data Source(s) Systolic blood pressure 124 mm[Hg] 124 mm[Hg] [facility] ([facility]) Diastolic blood pressure 78 mm[Hg] 78 mm[Hg] [facility] ([facility]) Body height 71 [in_i] 71 [in_i] [facility] ([facility]) 5'11" Body weight 140.12 [lb_av] 140.12 [lb_av] [facility] Body mass index (BMI) [Ratio] 19.5 kg/m2 19.5 k g/m2 [facility] ([facility]) [place] body weight 172 [lb_av] 172 [lb_av] [facility] Body weight 63.561 kg 63.561 kg [facility] ([facility]) Body surface area Derived from formula 1.81 m2 1.81 m2 [facility] ([facility]) Systolic blood pressure 135 mm[Hg] 135 mm[Hg] M [facility] ([facility]) Diastolic blood pressure 91 mm[Hg] 91 mm[Hg] [facility] ([facility]) Body height 71 [in_i] 71 [in_i] [facility] ([facility]) 5'11" Body weight 142.38 [lb_av] 142.38 [lb_av] [facility] Body mass index (BMI) [Ratio] 19.9 kg/m2 19.9 k g/m2 [facility] ([facility]) [place] body weight 172 [lb_av] 172 [lb_av] [facility] Body weight 64.581 kg 64.581 kg [facility] ([facility] Body surface area Derived from formula 1.82 m2 1.82 m2 [facility] ([facility]) Patient Treatment Plan of Care Planned Activity Planned Date Details Description Data Source (s) Famotidine 40 MG Oral Tablet 03/17/2020 12:00:00 AM EDT [facility] Omeprazole 40 MG Delayed Release Oral Capsule 03/12/2020 12:00:00 A M EDT [facility] montelukast 10 MG Oral Tablet 02/12/2020 12:00:00 AM EDT [facility]
[2021-04-06] MEDS ORDERED: NS 500 ML IV ONE (14:05)
[2021-04-06] MEDS ORDERED: NICOTINE 14 MG/24 HR TRANSDERMAL TD ONE (14:15)
--- NOTE | 2021-04-06 14:39 | REPVR ---
PROCEDURE INFORMATION: Exam: CT Head Without Contrast Exam date and time: 04/06/2021 1:42 PM Age: 40 years old Clinical indication: Syncope and collapse TECHNIQUE: Imaging protocol: Computed tomography of the head without contrast. Radiation optimization: All CT scans at this facility use at least one of these dose optimization techniques: automated exposure control; mA and/or kV adjustment per patient size (includes targeted exams where dose is matched to clinical indication); or iterative reconstruction. COMPARISON: CT Head without contrast 04/04/2021 11:38 AM FINDINGS: Brain: Age as before, there are mild diffuse involutional changes in the brain for age without acute hemorrhage or acute territorial infarct. Cerebral ventricles: No ventriculomegaly. Paranasal sinuses: Visualized sinuses are unremarkable. No fluid levels. Mastoid air cells: Visualized mastoid air cells are well aerated. Bones/joints: Unremarkable. No acute fracture. Soft tissues: Unremarkable. IMPRESSION: No acute intracranial abnormality and no significant change from the recent prior. If concern remains consider MRI. Electronically signed by: Milo Nichols On 04/06/2021 14:39:21 PM
--- NOTE | 2021-04-06 14:42 | REPVR ---
PROCEDURE INFORMATION: Exam: CT Cervical Spine Without Contrast Exam date and time: 04/06/2021 1:42 PM Age: 40 years old Clinical indication: Other: Syncope TECHNIQUE: Imaging protocol: Computed tomography images of the cervical spine without contrast. Radiation optimization: All CT scans at this facility use at least one of these dose optimization techniques: automated exposure control; mA and/or kV adjustment per patient size (includes targeted exams where dose is matched to clinical indication); or iterative reconstruction. COMPARISON: CT Head without contrast 04/04/2021 11:38 AM FINDINGS: Vertebrae: There are mild degenerative changes compatible with age with a minimal scoliosis but no evidence of acute fracture, high-grade compression deformity, or worrisome malalignment. Disc spaces: Minimal bulging of the disc at C4-C5 without significant mass effect. No significant central stenosis. Epidural space: No epidural fluid. Soft tissues: Unremarkable. Prevertebral Space: No prevertebral soft tissue swelling. Thyroid: Homogeneous thyroid. Lymph nodes: No confluent lymphadenopathy. Small neck nodes at multiple stations bilaterally not grossly enlarged. Lungs: The included lungs demonstrate emphysematous changes and apical pleural thickening. IMPRESSION: No acute fracture. Other findings. Electronically signed by: Milo Nichols On 04/06/2021 14:41:25 PM
[2021-04-06 14:53] LABS: AMPHETAMINES LEVEL URINE NEGATIVE (NEGATIVE); BARBITURATES URINE NEGATIVE (NEGATIVE); BENZODIAZEPINES URINE POSITIVE (NEGATIVE); CANNABINOIDS URINE NEGATIVE (NEGATIVE); COCAINE METABOLITE URINE NEGATIVE (NEGATIVE); METHADONE URINE NEGATIVE (NEGATIVE); OPIATES URINE NEGATIVE (NEGATIVE); PHENCYCLIDINE URINE NEGATIVE (NEGATIVE)
[2021-04-06 15:34] LABS: ACETAMINOPHEN LEVEL < 2.0 UG/ML (10.0-30.0); ALBUMIN 2.7 GM/DL (3.2-5.2); ALT/SGPT 54 U/L (12-78); BILIRUBIN,DIRECT 0.1 MG/DL (0.0-0.2); BILIRUBIN,TOTAL 0.5 MG/DL (0.2-1.0); BLOOD UREA NITROGEN 4 MG/DL (7-18); CALCIUM LEVEL 8.3 MG/DL (8.5-10.1); CARBON DIOXIDE LEVEL 27 MEQ/L (21-32); CHLORIDE LEVEL 107 MEQ/L (98-107); CK-MB VALUE MASS 13.7 NG/ML (<3.6); CPK CREATINE PHOSPHOKINASE 505 U/L (39-308); CREATININE FOR GFR 0.61 MG/DL (0.70-1.30); ETHYL ALCOHOL (ETHANOL) 0.006 % (0.000-0.010); FREE T4 0.86 NG/DL (0.76-1.46); GLOMERULAR FILTRATION RATE > 60.0 (>60); GLUCOSE, FASTING 89 MG/DL (70-100); LIPASE 79 U/L (73-393); MAGNESIUM LEVEL 1.7 MG/DL (1.8-2.4); MB/CK RELATIVE INDEX 2.71 (< OR =4); PHOSPHORUS LEVEL 4.4 MG/DL (2.5-4.9); SALICYLATE LEVEL < 1.7 MG/DL (5.0-30.0); SODIUM LEVEL 142 MEQ/L (136-145); THYROID STIMULATING HORMONE 0.214 uIU/ML (0.358-3.740); TOTAL PROTEIN 6.2 GM/DL (6.4-8.2); TROPONIN I < 0.02 NG/ML (< 0.10)
[2021-04-06 15:38] LABS: RSV AMPLIFICATION NEGATIVE (NEGATIVE)
[2021-04-06] MEDS ORDERED: MAG SULF 1GM/100ML (MAG RUN) 1 GM in IV 1 EA IV ONE (15:55)
[2021-04-06] MEDS ORDERED: HOME MED LIST COMPLETE! XX SCH (16:40)
[2021-04-06] MEDS ORDERED: RAMELTEON 8 MG TAB (ROZEREM) PO PRN (17:15)
--- OUTSIDE RECORDS SUMMARY | 2021-04-06 17:30 | CCD ---
Author Author [facility] Organization [facility] Address Unknown Phone Unavailable Care Team Providers Care Testing Lead Name Role Phone ARCHANA ARAIZA), Edis LAU MD Unavailable Unavailab le ARCHANA [...] ARCHANA (PRASAD), Edis LAU MD Unavailable Unavailab brook REDD (PRASAD), Edis LAU MD Unavailable Unavailab le Buniak, Jeetys Unavailable Unavailable Buniak, Borys MD Unavailable Unavailable [...] Unavailable Unavailable Buniak, Borys MD Unavailable Unavailable Nieto, L Suha RPA Unavailable [...] le CLARE, BALASUBRAMANIAM MD Unavailable Unavailab le LCARE, BALASUBRAMANIAM MD Unavailable Unavailab le CLARE, BALASUBRAMANIAM [...] is protected by Article 27-F of the [facility] Public Health law. If you continue you may have access to information: Regarding HIV / AIDS; Provided by facilities licensed or operated by the [facility] Office of Mental Health; or Provided by the [facility] Office for People With Developmental Disabilities. If such information is present, then the following [facility] mandated warning applies: This information has [...] law may result in a fine or long term sentence or both. A general authorization for the release of medical or other information is NOT sufficient authorization for further disc losure. Allergies and Adverse Reactions Type Description Substance Reaction Status Data Source(s ) Propensity to adverse reactions PEANUT-CONTAINING DRUG PRODU CTS Peanut- Containing Drug Products Active [facility] Family History Family Member Name Family Member Gender Family Member Status Date o f Status Description Data Source(s) Unknown Unknown Problem [facility] ([facility]) Unknown Male Problem [facility] ([facility]) Unknown Female Problem [facility] ([facility]) Unknown Female Problem [facility] ([facility]) Unknown Female Problem [facility] ([facility]) Unknown Female Problem [facility] ([facility]) Unknown Female Problem [facility] ([facility]) Encounters Encounter Providers Location Date Indications Data Source(s ) Outpatient Attender: Suha Valerio/Milana/Derrick/R eindl 12/29/2020 11:15:00 AM EDT [facility] ([facility]) Outpatient Attender: Carlton Valerio/Milana/Derrick/Troy dl 10/20/2020 10:45:00 AM EDT [facility] ([facility] Attender: SID REDD MD ([place]) 0 08:20:12 PM EST Gastroenterology and Hepatology [facility] Attender: SID REDD MD ([place]) 0 08:20:12 PM EST Gastroenterology and Hepatology [facility] Outpatient Referrer: Reva Park MD MOB-MOB.PAT 05/14/2020 10:46:03 AM EST [facility] Outpatient Attender: LOI PLUNKETT MDReferrer: LOI SPARKS MD [id number] 05/05/2020 09:30:00 AM EST - 05/05/2020 11:59:00 PM EST [facility] Patient discharged. Outpatient Attender: Reva Park MDAdmitter: Reva Park MD [id number].EU 03/29/2020 03:28:43 PM EDT [facility] Outpatient Attender: Reva Park MDAdmitter: Reva Park MD [id number].EU 03/29/2020 03:20:23 PM EDT [facility] Outpatient Attender: LOI PLUNKETT MDReferrer: LOI SPARKS MD [id number].[facility] 03/29/2020 12:00:00 AM EDT [facility] Immunizations Vaccine Date Status Description Data Source(s) COVID-19 VACCINE [employer] 09/17/2020 12:00:00 AM EDT completed [facility] Vaccine Series Complete: YESThis Data wa s Submitted to [facility] Via [employer]. COVID-19 VACCINE [employer] 08/27/2020 12:00:00 AM EST completed [facility] Vaccine Series Complete: NOThis Data was Submitted to [facility] [employer]. Medications Medication Brand Name Start Date Product [...] by mouth 2 (two) times a day [facility] 40 mg 03/17/2020 12:00:00 AM EDT [...] by mouth 2 (two) times a day [facility] 40 mg 03/12/2020 12:00:00 AM EDT [...] active Take 10 mg by mouth daily [facility] 40 mg 12/10/2019 12:00:00 AM EDT capsule,delayed release (DR/EC) 60 TAKE ONE CAPSULE BY MOUTH TWICE A DAY TAKE ONE CAPSULE BY MOUTH TWICE A DAY SOLD: 02/15/2020 [facility] Insurance Providers Payer name Policy type / Coverage type Policy ID Covered democrat ID Covered democrat's relationship to garrett Policy Garrett Plan Information [facility] P[facility] POS [id number] POMCO U [id number] Spouse [id number] Pom[employer] [id number] 1 [id number] [place] 302/307 [id number] SP [id number] [facility] [place] MANAGEMENT SNEHAL [id number] SP [id number] POMCO [id number] [place]2 [id number] BCBS OF [place] 306/806 [id number] SP [id number] POMCO [id number] Spo [id number] [employer] BCBS MEDICAID [id number] xxxxxxxxxxxx [id number] [employer] BCBS MEDICAID [id number] Aria [id number] [facility] [place] PPO POS [id number] INSURANCE COVID-19 COVID Aria C OVID INSURANCE COVID-19 [id number] [id number] [employer] (pr) Commercial [id number] Family Dependent [id number] POMCO [id number] WI2 [id number] [employer] Commercial [id number] Family Dependent [employer] (pr) Commercial [id number] Family Dependent [employer] Commercial [id number] F amily Dependent [employer] Commercial [id number] Family Dependent POMCO O [id number] U [id number] BCBS LARRY O [id number] SP [id number] [place]BS [place] PPO 302/307 [id number] SP [id number] BCBS LARRY O [id number] SP [id number] [facility] Health Maintenance Organization (HMO) [id number] Self [id number] [employer] Commercial [id number] Family Dependent [id number] SELF PAY HEA UNAVAILABLE [id number] S UNAVAIL ABLE SELF PAY HEA UNAVAILABLE [id number] S UNAVAIL ABLE UNAVAILABLE UNAVAILA BLE POMCO HEA [id number] POMCO -O/P [id number] 19 [id number] [employer] PPO O [id number] P [id number] [employer] Commercial [id number] Family Dependent [id number] [employer] Commercial [id number] Family Dependent [id number] [employer] Commercial [id number] Family Dependent [id number] Problems, Conditions, and Diagnoses Code Display Name Description Problem Type Effective Dates Data Source(s) K21.9 Gastro-esophageal reflux disease without esophagitis Gastro-esophageal reflux disease without Diagnosis 05/18/2020 01:51:36 PM [facility] U07.1 COVID-19 COVID-19 Diagnosis 05/14/2020 12:00:00 AM ES T [facility] K44.9 Diaphragmatic hernia without obstruction or gangrene Diaphragmatic hernia without obstruction Diagnosis 05/12/2020 12:39:35 PM [facility] K21.01 Gastro-esophageal reflux disease with es ophagitis, with bleeding Gastro- esophageal reflux disease with es Diagnosis 05/12/2020 12:39:35 PM EST [facility] Surgeries/Procedures Procedure Description Date Indications Data Source(s) OFFICE OUTPATIENT VISIT 15 MINUTES 12/29/2020 12:00:00 AM EDT [facility] ([facility] ) Endoscopy Upper GI Biopsy 12/16/2020 12:00:00 AM EDT [facility] ([facility]) OFFICE OUTPATIENT VISIT 25 MINUTES 10/20/2020 12:00:00 AM EDT [facility] ([facility]) Results ID Date Data Source [id number] 12/16/2020 09:31:00 AM EDT [facility] ([facility]) Name Value Range Interpretation Code Description Data Micaela rce(s) Supporting Document(s) Surgical pathology study Laboratory test result [facility] ([facility]) FINAL DIAGNOSIS A-Stomach, antral biopsy: Gastric [...] MD 12/17/2020 1142 ID Date Data Source [id number] 07/22/2020 05:08:00 AM EST [facility] Name Value Range Interpretation Code Description Data Micaela rce(s) Supporting Document(s) SARS coronavirus 2 RNA Not Detected [facility] This lab was ordered by [facility] and reported by [facility]. ID Date Data Source [id number] 07/22/2020 04:29:00 AM EST [facility] Name Value Range Interpretation Code Description Data Micaela rce(s) Supporting Document(s) SARS COVID ANTIGEN NEGATIVE [facility] This lab was ordered by [facility] reported by [facility]. ID Date Data Source [id number] 03/06/2020 10:00:00 AM EDT [facility] Name Value Range Interpretation Code Description Data Micaela rce(s) Supporting Document(s) SARS coronavirus 2 RNA [facility] This lab was ordered by [facility] and reported by [facility]. ID Date Data Source [id number] 02/11/2020 06:50:00 AM EDT [facility] ([facility]) Name Value Range Interpretation Code Description Data Micaela rce(s) Supporting Document(s) Prothrombin Time 13.7 s 11.8-14.0 Normal (applies to non-numeric results) [facility] ([facility]) Inr 1.03 Normal (applies to non-numeric resul ts) [facility] ([facility]) THERAPUTIC HUMAN INR VALUES INDICATIONS NORMAL RANGES PROPHYLAXIS/TREATMENT OF: VENOUS THROMBOSIS 2.0-3.0 PULMONARY EMBOLISM 2.0-3.0 PREVENTION OF SYSTEMIC EMBOLISM FROM: TISSUE HEART VALVES 2.0-3.0 ACUTE MYOCARDIAL INFARCTION 2.0-3.0 VALVULAR HEART DISEASE 2.0-3.0 ATRIAL FIBRILLATION 2.0-3.0 MECHANICAL VALVES(HIGH RISK) 2.5-3.5 RECURRENT MYOCARDIAL INFARCTION 2.5-3.5 Partial Thromboplastin Time 25.1 s 25.0-38.4 Norm al (applies to non-numeric results) [facility] ([facility]) ID Date Data Source [id number] 02/11/2020 06:50:00 AM EDT [facility] ([facility]) Name Value Range Interpretation Code Description Data Micaela rce(s) Supporting Document(s) Ast/Sgot 23 U/L 7-37 Normal (applies to non-numeric resul ts) [facility] ([facility]) Alkaline Phosphatase 135 U/L 45-117 Above high normal [facility] ([facility]) Alt/SGPT 30 U/L 12-78 Normal (applies to non-numeric resul ts) [facility] ([facility]) Bilirubin,Direct 0.4 mg/dL 0.0-0.2 Above high normal [facility] ([facility]) Bilirubin,Total 1.1 mg/dL 0.2-1.0 Above high normal [facility] ([facility]) Albumin/Globulin Ratio 1.1 Normal (applies to non-n umeric results) [facility] ([facility]) Total Protein 7.8 GM/DL 6.4-8.2 Normal (applies to non-numeric re sults) [facility] ([facility]) Albumin 4.1 GM/DL 3.2-5.2 Normal (applies to non-numeric resul ts) [facility] ([facility]) Procedure Social History Code Duration Value Status Description Data Source(s ) Alcohol intake 03/29/2020 12:00:00 AM EDT Yes completed [facility] Smoking 03/29/2020 12:00:00 AM EDT Current every day smoker co mpleted Current every day smoker [facility] Vital Signs ID Date Data Source UNK Name Value Range Interpretation Code Description Data Source(s) Diastolic blood pressure 78 mm[Hg] 78 mm[Hg] [facility] ([facility]) Systolic blood pressure 124 mm[Hg] 124 mm[Hg] M [facility] ([facility]) Body height 71 [in_i] 71 [in_i] [facility] ([facility]) 5'11" Body weight 140.12 [lb_av] 140.12 [lb_av] [facility] Body mass index (BMI) [Ratio] 19.5 kg/m2 19.5 k g/m2 [facility] ([facility]) [place] body weight 172 [lb_av] 172 [lb_av] [facility] ([facility]) Body weight 63.561 kg 63.561 kg [facility] ([facility]) Body surface area Derived from formula 1.81 m2 1.81 m2 [facility] ([facility]) [place] body weight 172 [lb_av] 172 [lb_av] [facility] ([facility]) Systolic blood pressure 135 mm[Hg] 135 mm[Hg] M [facility] ([facility]) Diastolic blood pressure 91 mm[Hg] 91 mm[Hg] [facility] ([facility]) Body height 71 [in_i] 71 [in_i] [facility] ([facility]) 5'11" Body weight 142.38 [lb_av] 142.38 [lb_av] [facility] ([facility]) Body mass index (BMI) [Ratio] 19.9 kg/m2 19.9 k g/m2 [facility] ([facility]) Body weight 64.581 kg 64.581 kg [facility] ([facility]) Body surface area Derived from formula 1.82 m2 1.82 m2 [facility] ([facility]) Patient Treatment Plan of Care Planned Activity Planned Date Details Description Data Source (s) Famotidine 40 MG Oral Tablet 03/17/2020 12:00:00 AM EDT [facility] Omeprazole 40 MG Delayed Release Oral Capsule 03/12/2020 12:00:00 A M EDT [facility] montelukast 10 MG Oral Tablet 02/12/2020 12:00:00 AM EDT [facility]
--- NOTE | 2021-04-06 17:44 | HPEPDOC ---
General Date of Admission 04/06/21 Date of Service: Apr 06, 2021 Chief Complaint The patient is a 40-year-old male admitted with a reason for visit of Syncope. 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 While in the hospital he had an EEG done which was negative for any epileptic focus. Patient has an appointment with neurology on April [address] Paulino. He has not followed up in several years. After discharge yesterday he was feeling fine he had 1 beer in the evening then was feeling tired so went to bed woke up this morning was fine he went shopping with his girlfriend and while in the car he passed out. As per girlfriend he was nonresponsive for 10 minutes. She did not notice any shaking of his limbs. There was no bowel or bladder incontinence. Patient reports just before passing out he had a headache. Patient is being admitted under observation for syncopal episode. Home Medications Scheduled Famotidine (Famotidine) 40 Mg Tablet, 40 MG PO BID, (Reported) Metoclopramide HCl (Metoclopramide HCl) 10 Mg Tablet, 10 MG PO TID, (Reported) Multivitamins (Thera M Plus Tablet) 1 Each Tablet, 1 TAB PO DAILY, (Reported) Omeprazole (Omeprazole) 40 Mg Capsule.dr, 40 MG PO BID, (Reported) Scheduled PRN Acetaminophen (Acetaminophen) 325 Mg Tablet, 650 MG PO Q4H PRN for HEADACHE, ( Reported) Alprazolam (Alprazolam) 0.5 Mg Tab, 0.5 MG PO BID PRN for ANXIETY/AGITATION, (Reported) Sumatriptan Succinate (Sumatriptan Succinate) 50 Mg Tablet, 50 MG PO DAILY PRN for MIGRAINE, (Reported) Trazodone HCl (Trazodone HCl) 100 Mg Tablet, 100 MG PO QHS PRN for INSOMNIA, (Reported) Allergies Coded Allergies: Peanut (Unverified Allergy, Severe, THROAT SWELLING, 12/15/20) Per Pt, THROAT SWELLING W/ANY TYPE OF PEANUT PRODUCTS. codeine (Verified Allergy, Intermediate, SYNCOPE, 12/15/20) Past Medical History Medical History Lopez's Esophagus Chronic bronchitis ETOH use disorder TBI with subdural hematoma, conservatively managed Seizures Surgical History EGD and colonoscopy Family History Significant Family History: Cancer (Father has lymph node cancer) Social History * Smoker: current smoker Alcohol: other (Daily reports drinks 2 beers every day.) Drugs: denies A-FIB/CHADSVASC A-FIB History Current/History of A-Fib/PAF?: No Review of Systems Constitutional: Denies: Chills, Fever, Night Sweats Eyes: Denies: Pain, Vision change ENT: Denies: Head Aches, Ear Pain, Dysphagia Skin: Denies: Rash, Lesions, Breakdown Pulmonary: Denies: Dyspnea, Cough Cardiovascular: Denies: Chest Pain, Palpitations, Orthopnea, Paroxysmal Noc. Dyspnea, Lt Headedness Gastrointestinal: Denies: Nausea, Vomiting, Abdominal Pain, Diarrhea Genitourinary: Denies: Dysuria, Frequency, Incontinence, Retention Hematologic: Denies: Bruising, Bleeding Excessively Musculoskeletal: Denies: Neck Pain, Back Pain, Joint Pain, Muscle Pain, Spasms Physical Examination General Exam: Positive: Alert, Cooperative, No Acute Distress Eye Exam: Positive: PERRLA, Conjunctiva & lids normal, EOMI; Negative: Sclera icteric ENT Exam: Positive: Atraumatic, Mucous membr. moist/pink, Pharynx Normal Chest Exam: Positive: Clear to auscultation, Normal air movement Heart Exam: Positive: Rate Normal, Regular Rhythm, Normal S1, Normal S2; Negative: Murmurs, Rubs Abdomen Exam: Positive: Normal bowel sounds, Soft; Negative: Tenderness, Hepatospenomegaly Extremity Exam: Positive: Normal pulses; Negative: Clubbing, Cyanosis, Edema Neuro Exam: Positive: Normal Speech, Strength at 5/5 X4 ext, Normal Tone, Sensation Intact Psych Exam: Positive: Memory Intact, Oriented x 3 Vital Signs Vital Signs Date Time Temp Pulse Resp B/P (MAP) Pulse Ox O2 Delivery O2 Flow Rate FiO2 04/06/21 14:49 94 100 04/06/21 14:45 138/96 (110) 04/06/21 12:34 98.7 16 Room Air Laboratory Data Labs 24H Laboratory Tests 2 04/06/21 13:02: Immature Granulocyte % (Auto) 0.2, Neutrophils (%) (Auto) 49.0, Lymphocytes (%) (Auto) 36.5, Monocytes (%) (Auto) 12.9H, Eosinophils (%) (Auto) 0.8, Basophils (%) (Auto) 0.6, Neutrophils # (Auto) 2.4, Lymphocytes # (Auto) 1.8, Monocytes # (Auto) 0.6, Eosinophils # (Auto) 0.0, Basophils # (Auto) 0.0, Nucleated Red Blood Cells % (auto) 0.0, Anion Gap 8, Glomerular Filtration Rate > 60.0, Calcium Level 8.3L, Phosphorus Level 4.4, Magnesium Level 1.7L, Total Bilirubin 0.5#, Direct Bilirubin 0.1, Aspartate Amino Transf (AST/SGOT) 78H, Alanine Aminotransferase (ALT/SGPT) 54, Alkaline Phosphatase 79, Total Creatine Kinase 505H, Creatine Kinase MB 13.7H, Creatine Kinase MB Relative Index 2.71, Troponin I < 0.02, Total Protein 6.2L, Albumin 2.7L, Albumin/Globulin Ratio 0.8, Lipase 79, Thyroid Stimulating Hormone (TSH) 0.214L, Free Thyroxine 0.86, Salicylates Level < 1.7L, Urine Opiates Screen NEGATIVE, Urine Methadone Screen NEGATIVE, Acetaminophen Level < 2.0L, Urine Barbiturates Screen NEGATIVE, Urine Phencyclidine Screen NEGATIVE, Urine Amphetamines Screen NEGATIVE, Urine Benzodiazepines Screen POSITIVEH, Urine Cocaine Metabolite Screen NEGATIVE, Urine Cannabinoids Screen NEGATIVE, Ethyl Alcohol Level 0.006 04/06/21 13:53: Ammonia 23 04/06/21 14:33: Coronavirus (COVID-19)(PCR) NEGATIVE, Influenza Type A (RT-PCR) NEGATIVE, Influenza Type B (RT-PCR) NEGATIVE, Respiratory Syncytial Virus (PCR) NEGATIVE CBC/BMP Laboratory Tests 04/06/21 13:02 Assessment/Plan Patient is a 40-year-old male with a past medical history of TBI with subdural hematoma 8 years ago which was treated conservatively, seizures, alcohol use disorder ( reports has 2 beers daily), history of alcohol withdrawal seizures, chronic bronchitis and Lopez's esophagus was recently admitted from 04/04/2021 to 04/05/2021 for short-term memory loss when who 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 While in the hospital he had an EEG done which was negative for any epileptic focus. Patient has an appointment with neurology on April [address] Paulino. He has not followed up in several years. After discharge yesterday he was feeling fine he had 1 beer in the evening then was feeling tired so went to bed woke up this morning was fine he went shopping with his girlfriend and while in the car he passed out. As per girlfriend he was nonresponsive for 10 minutes. She did not notice any shaking of his limbs. There was no bowel or bladder incontinence. Patient reports just before passing out he had a headache. Patient is being admitted under observation for syncopal episode. Syncope Likely vasovagal Vs medication related. Patient takes alprazolam Unlikely seizure episode as there was no postictal state however will check prolactin level. EEG on 04/04/2021 was negative for any acute focus We will monitor under telemetry for any cardiac events EKG normal We will get an echo and a carotid Doppler to complete work-up. History of Lopez's esophagus/gastritis Continue PPI and famotidine Alcohol use regular reports takes 2 beers daily. Protein calorie malnutrition BMi of 17.9 Albumin of 2.7 has bitemporal wasting. Abnromal TSH low However free T4 is normal so does not need any treatment Plan / VTE VTE Prophylaxis Ordered?: Yes Sugey Merritt MD Apr 06, 2021 17:27
--- NOTE | 2021-04-06 18:40 | REP ---
INDICATION: syncope COMPARISON: None. TECHNIQUE: Real-time ultrasound evaluation and duplex Doppler interrogation of the extracranial carotid vasculature is performed. FINDINGS: There is mild plaquing and narrowing in both carotid bulbs extending into the internal and external carotid arteries. Luminal narrowing is less than 50%. There is no evidence of hemodynamically significant stenosis of either internal carotid artery. Normal flow velocities are seen. The vertebral arteries demonstrate normal direction of flow. RIGHT LEFT Peak systolic velocity ICA 71.4 cm/s 75.7 cm/s End diastolic velocity ICA 26.7 cm/s 34.9 cm/s Peak systolic velocity CCA 109 cm/s 125cm/s Peak systolic velocity ECA 60.3 cm/s 74.5 cm/s ICA/CCA ratio 0.7 0.6 IMPRESSION: Bilateral luminal narrowing of the internal carotid arteries less than 50%. No evidence of hemodynamically significant stenosis. <Electronically signed by Mendoza Benjamin > 04/06/21 1150
[2021-04-06 18:55] VITALS: BP 122/88
[2021-04-06 22:00] VITALS: BP 122/79
[2021-04-06] MEDS: FAMOTIDINE 20 MG TAB PO SCH (22:00)
[2021-04-06] MEDS: ACETAMINOPHEN TAB 650MG DOSE (2X325MG) PO PRN (22:01)
[2021-04-06] MEDS: PANTOPRAZOLE 40MG TAB (PROTONIX) PO SCH (22:01)
[2021-04-07 06:00] VITALS: BP 129/75
[2021-04-07 07:20] LABS: BASO # 0.1 10^3/uL (0.0-0.2); EOS # 0.1 10^3/uL (0.0-0.5); HEMATOCRIT 35.7 % (42.0-52.0); HEMOGLOBIN 12.6 g/dl (13.5-17.5); LYMPH # 1.2 10^3/uL (1.5-5.0); LYMPH % 23.3 % (24.0-44.0); MEAN CORPUSCULAR HGB CONC 35.3 g/dl (32.0-36.5); MEAN CORPUSCULAR VOLUME 93.5 fl (80.0-96.0); MONO # 0.6 10^3/uL (0.0-0.8); MONO % 11.7 % (2.0-8.0); NEUTROPHILS # 3.3 10^3/uL (1.5-8.5); NEUTROPHILS % 62.8 % (36.0-66.0); PLATELET COUNT, AUTOMATED 230 10^3/uL (150-450); RED BLOOD COUNT 3.82 10^6/uL (4.30-6.10); WHITE BLOOD COUNT 5.2 10^3/uL (4.0-10.0)
[2021-04-07 07:44] LABS: BLOOD UREA NITROGEN 2 MG/DL (7-18); CALCIUM LEVEL 8.5 MG/DL (8.5-10.1); CARBON DIOXIDE LEVEL 31 MEQ/L (21-32); CHLORIDE LEVEL 107 MEQ/L (98-107); GLOMERULAR FILTRATION RATE > 60.0 (>60); GLUCOSE, FASTING 96 MG/DL (70-100); POTASSIUM SERUM 3.4 MEQ/L (3.5-5.1); SODIUM LEVEL 142 MEQ/L (136-145)
[2021-04-07] MEDS ORDERED: INFLUENZA QUADRIVALENT PF VACCINE 0.5ML SYRINGE IM ONE (09:00)
[2021-04-07] MEDS: FAMOTIDINE 20 MG TAB PO SCH (09:45)
[2021-04-07] MEDS: PANTOPRAZOLE 40MG TAB (PROTONIX) PO SCH (09:45)
[2021-04-07] MEDS: ACETAMINOPHEN TAB 650MG DOSE (2X325MG) PO PRN (09:49)
[2021-04-07] MEDS ORDERED: ALPRAZolam 0.5 MG TAB PO PRN (11:10)
[2021-04-07] MEDS ORDERED: POTASSIUM CHLORIDE 10MEQ SR TABLET PO ONE (11:10)
--- NOTE | 2021-04-07 11:16 | DS.PDOC ---
Discharge Summary General Date of Admission Apr 06, 2021 at 12:35 Date of Discharge 04/07/21 Discharge Summary PROCEDURES PERFORMED DURING STAY: [None]. DISCHARGE DIAGNOSES: Vasovagal syncope Protein calorie malnutrition SECONDARY DIAGNOSIS: TBI with subdural hematoma 8 years ago which was treated conservatively, alcohol use disorder ( reports has 2 beers daily), history of alcohol withdrawal seizures, chronic bronchitis and Lopez's esophagus COMPLICATIONS/CHIEF COMPLAINT: Syncope. 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 While in the hospital he had an EEG done which was negative for any epileptic focus. Patient has an appointment with neurology on April [address] Paulino. He has not followed up in several years. After discharge yesterday he was feeling fine he had 1 beer in the evening then was feeling tired so went to bed woke up this morning was fine he went shopping with his girlfriend and while in the car he passed out. As per girlfriend he was nonresponsive for 10 minutes. She did not notice any shaking of his limbs. There was no bowel or bladder incontinence. Patient reports just before passing out he had a headache. Patient is being admitted under observation for syncopal episode. Syncope vasovagal Likely related to combined use of alcohol and benzodiazepine Not seizure. prolactin not elevated , no post ictal state. EEG on 04/04/2021 was negative for any acute focus. EKG normal, No cardiac arrhythmias on telemetry. Carotid doppler less than 50% occlusion History of Lopez's esophagus/gastritis Continue PPI and famotidine Alcohol use disorder Pt reports takes 2 beers daily. However family reports drinks more. Protein calorie malnutrition BMi of 17.9 Albumin of 2.7 has bitemporal wasting. Abnormal TSH low However free T4 is normal so does not need any treatment DISCHARGE MEDICATIONS: Please see below. ALLERGIES: Please see below. PHYSICAL EXAMINATION ON DISCHARGE: VITAL SIGNS: Please see below. General Exam: Positive: Alert, Cooperative, No Acute Distress Eye Exam: Positive: PERRLA, Conjunctiva & lids normal, EOMI; Has bitemporal wasting Negative: Sclera icteric ENT Exam: Positive: Atraumatic, Mucous membr. moist/pink, Pharynx Normal Chest Exam: Positive: Clear to auscultation, Normal air movement Heart Exam: Positive: Rate Normal, Regular Rhythm, Normal S1, Normal S2; Negative: Murmurs, Rubs Abdomen Exam: Positive: Normal bowel sounds, Soft; Negative: Tenderness, Hepatospenomegaly Extremity Exam: Positive: Normal pulses; Negative: Clubbing, Cyanosis, Edema Neuro Exam: Positive: Normal Speech, Strength at 5/5 X4 ext, Normal Tone, Sensation Intact Psych Exam: Positive: Memory Intact, Oriented x 3 LABORATORY DATA: Please see below. ACTIVITY: [As tolerated]. DIET: Regular DISCHARGE PLAN: Home DISCHARGE INSTRUCTIONS: Follow-up with neurology as per outpatient appointment on 04/27/2021 Follow-up PMD in 1 to 2 weeks DISCHARGE CONDITION: [Stable]. TIME SPENT ON DISCHARGE: 35 minutes. Vital Signs/I&Os Vital Signs Date Time Temp Pulse Resp B/P (MAP) Pulse Ox O2 Delivery O2 Flow Rate FiO2 04/07/21 06:00 98.6 70 18 129/75 (93) 98 Room Air I&O- Last 24 Hours up to 6 AM 04/07/21 05:59 Intake Total 600 ml Balance 600 ml Laboratory Data Labs 24H Laboratory Tests 2 04/06/21 13:02: Immature Granulocyte % (Auto) 0.2, Neutrophils (%) (Auto) 49.0, Lymphocytes (%) (Auto) 36.5, Monocytes (%) (Auto) 12.9H, Eosinophils (%) (Auto) 0.8, Basophils (%) (Auto) 0.6, Neutrophils # (Auto) 2.4, Lymphocytes # (Auto) 1.8, Monocytes # (Auto) 0.6, Eosinophils # (Auto) 0.0, Basophils # (Auto) 0.0, Nucleated Red Blood Cells % (auto) 0.0, Anion Gap 8, Glomerular Filtration Rate > 60.0, Calcium Level 8.3L, Phosphorus Level 4.4, Magnesium Level 1.7L, Total Bilirubin 0.5#, Direct Bilirubin 0.1, Aspartate Amino Transf (AST/SGOT) 78H, Alanine Aminotransferase (ALT/SGPT) 54, Alkaline Phosphatase 79, Total Creatine Kinase 505H, Creatine Kinase MB 13.7H, Creatine Kinase MB Relative Index 2.71, Troponin I < 0.02, Total Protein 6.2L, Albumin 2.7L, Albumin/Globulin Ratio 0.8, Lipase 79, Thyroid Stimulating Hormone (TSH) 0.214L, Free Thyroxine 0.86, Salicylates Level < 1.7L, Urine Opiates Screen NEGATIVE, Urine Methadone Screen NEGATIVE, Acetaminophen Level < 2.0L, Urine Barbiturates Screen NEGATIVE, Urine Phencyclidine Screen NEGATIVE, Urine Amphetamines Screen NEGATIVE, Urine Benzodiazepines Screen POSITIVEH, Urine Cocaine Metabolite Screen NEGATIVE, Urine Cannabinoids Screen NEGATIVE, Ethyl Alcohol Level 0.006 04/06/21 13:53: Ammonia 23 04/06/21 14:33: Coronavirus (COVID-19)(PCR) NEGATIVE, Influenza Type A (RT-PCR) NEGATIVE, Influenza Type B (RT-PCR) NEGATIVE, Respiratory Syncytial Virus (PCR) NEGATIVE 04/06/21 19:54: Prolactin 1.2L 04/07/21 07:02: Immature Granulocyte % (Auto) 0.2, Neutrophils (%) (Auto) 62.8, Lymphocytes (%) (Auto) 23.3L, Monocytes (%) (Auto) 11.7H, Eosinophils (%) (Auto) 1.0, Basophils (%) (Auto) 1.0, Neutrophils # (Auto) 3.3, Lymphocytes # (Auto) 1.2L, Monocytes # (Auto) 0.6, Eosinophils # (Auto) 0.1, Basophils # (Auto) 0.1, Nucleated Red Blood Cells % (auto) 0.0, Anion Gap 4L, Glomerular Filtration Rate > 60.0, Calcium Level 8.5 CBC/BMP Laboratory Tests 04/06/21 13:02 04/07/21 07:02 Discharge Medications Scheduled Famotidine (Famotidine) 40 Mg Tablet, 40 MG PO BID, (Reported) Metoclopramide HCl (Metoclopramide HCl) 10 Mg Tablet, 10 MG PO TID, (Reported) Multivitamins (Thera M Plus Tablet) 1 Each Tablet, 1 TAB PO DAILY, (Reported) Omeprazole (Omeprazole) 40 Mg Capsule.dr, 40 MG PO BID, (Reported) Scheduled PRN Acetaminophen (Acetaminophen) 325 Mg Tablet, 650 MG PO Q4H PRN for HEADACHE, (Reported) Alprazolam (Alprazolam) 0.5 Mg Tab, 0.5 MG PO BID PRN for ANXIETY/AGITATION, (Reported) Sumatriptan Succinate (Sumatriptan Succinate) 50 Mg Tablet, 50 MG PO DAILY PRN for MIGRAINE, (Reported) Trazodone HCl (Trazodone HCl) 100 Mg Tablet, 100 MG PO QHS PRN for INSOMNIA, (Reported) Allergies Coded Allergies: Peanut (Unverified Allergy, Severe, THROAT SWELLING, 12/15/20) Per Pt, THROAT SWELLING W/ANY TYPE OF PEANUT PRODUCTS. codeine (Verified Allergy, Intermediate, SYNCOPE, 12/15/20) Sugey Merritt MD Apr 07, 2021 11:16
== END 2021-04-07 14:25 | disposition home or self-care (01) ==
LOC: M ED 12:34 → M ED INP 12:35 → M MSPAV 18:46
PROVIDERS: ADMIT Internal Medicine Nephrology; ATTEND Internal Medicine Nephrology
DX: R55 Syncope and collapse (principal); E46 Unspecified protein-calorie malnutrition; Z87.820 Personal history of traumatic brain injury; F10.10 Alcohol abuse, uncomplicated; K22.70 Barrett's esophagus without dysplasia; Z79.899 Other long term (current) drug therapy; Z88.5 Allergy status to narcotic agent; Z91.010 Allergy to peanuts; F17.218 Nicotine dependence, cigarettes, with other nicotine-induced disorders
CPT/HCPCS: 36415; 70450; 71045; 72125; 80048; 80076; 80143; 80307; 82077; 82140; 82550; 82553; 83690; 83735; 84100; 84146; 84439; 84443; 85025; 87631; 90471; 90686; 93005; 93041; 93880; 94760; 96361; 96374; 99285; J3475

== ENCOUNTER 2021-06-15 15:44 | Emergency (ER) | payer BC ==
[~2021-06-15] VITALS: Ht 182.9 cm; Wt 61.0 kg
[2021-06-15] MEDS ORDERED: diphenhydrAMINE 50MG/ML VIAL (J1200) IV STA (16:04)
[2021-06-15] MEDS ORDERED: NS 1,000 ML IV ONE (16:05)
[2021-06-15] MEDS ORDERED: KETOROLAC 30 MG/ML 1ML VIAL IV ONE (16:05)
[2021-06-15] MEDS ORDERED: METOCLOPRAMIDE INJ 10MG/2ML VIAL (J2765 PER 1) IV ONE (16:05)
--- NOTE | 2021-06-15 16:27 | REP ---
INDICATION: CHEST PAIN COMPARISON: 04/06/2021 TECHNIQUE: Portable AP view of the chest FINDINGS: The mediastinum and cardiac silhouette are stable and within normal limits for portable technique. The lung baig demonstrate stable chronic changes without acute consolidation, effusion, or pneumothorax. Skeletal structures are intact. IMPRESSION: No acute cardiopulmonary process appreciated. <Electronically signed by Devonte Lema > 06/15/21 [id number]
[2021-06-15 16:30] LABS: BASO # 0.1 10^3/uL (0.0-0.2); BASO % 0.7 % (0.0-1.0); HEMATOCRIT 33.3 % (42.0-52.0); HEMOGLOBIN 11.6 g/dl (13.5-17.5); LYMPH # 2.7 10^3/uL (1.5-5.0); LYMPH % 32.8 % (24.0-44.0); MEAN CORPUSCULAR HEMOGLOBIN 32.1 pg (27.0-33.0); MEAN CORPUSCULAR HGB CONC 34.8 g/dl (32.0-36.5); MEAN CORPUSCULAR VOLUME 92.2 fl (80.0-96.0); MONO # 0.8 10^3/uL (0.0-0.8); MONO % 10.2 % (2.0-8.0); NEUTROPHILS # 4.6 10^3/uL (1.5-8.5); NEUTROPHILS % 56.1 % (36.0-66.0); PLATELET COUNT, AUTOMATED 269 10^3/uL (150-450); RED BLOOD COUNT 3.61 10^6/uL (4.30-6.10); WHITE BLOOD COUNT 8.1 10^3/uL (4.0-10.0)
[2021-06-15 17:07] LABS: ALBUMIN 2.6 GM/DL (3.2-5.2); ALT/SGPT 85 U/L (12-78); BILIRUBIN,DIRECT 0.1 MG/DL (0.0-0.2); BILIRUBIN,TOTAL 0.3 MG/DL (0.2-1.0); BLOOD UREA NITROGEN 5 MG/DL (7-18); CALCIUM LEVEL 7.9 MG/DL (8.5-10.1); CARBON DIOXIDE LEVEL 26 MEQ/L (21-32); CHLORIDE LEVEL 107 MEQ/L (98-107); CREATININE FOR GFR 0.84 MG/DL (0.70-1.30); FREE T4 0.75 NG/DL (0.76-1.46); GLOMERULAR FILTRATION RATE > 60.0 (>60); GLUCOSE, FASTING 120 MG/DL (70-100); LIPASE 126 U/L (73-393); POTASSIUM SERUM 3.1 MEQ/L (3.5-5.1); SODIUM LEVEL 143 MEQ/L (136-145); THYROID STIMULATING HORMONE 0.797 uIU/ML (0.358-3.740); TOTAL PROTEIN 5.9 GM/DL (6.4-8.2)
[2021-06-15 17:12] LABS: CK-MB VALUE MASS 3.4 NG/ML (<3.6); MB/CK RELATIVE INDEX 0.69 (< OR =4)
[2021-06-15 18:02] LABS: CK-MB VALUE MASS 3.3 NG/ML (<3.6); MB/CK RELATIVE INDEX 0.74 (< OR =4)
[2021-06-15 18:54] VITALS: BP 114/69
--- NOTE | 2021-06-15 19:47 | ECGEPIP ---
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
--- NOTE | 2021-06-15 19:48 | ECGEPIP ---
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
== END 2021-06-15 18:58 | disposition home or self-care (01) ==
LOC: EDBD 15:44 → M ED 15:44
DX: R07.89 Other chest pain (principal); G43.909 Migraine, unspecified, not intractable, without status migrainosus; R00.0 Tachycardia, unspecified; F41.9 Anxiety disorder, unspecified; F12.10 Cannabis abuse, uncomplicated; Z79.899 Other long term (current) drug therapy; Z91.040 Latex allergy status; Z88.5 Allergy status to narcotic agent
CPT/HCPCS: 71045; 80048; 80076; 82550; 82553; 83690; 84439; 84443; 85025; 93005; 93041; 94760; 96361; 96374; 96375; 99285; J1200; J1885; J2765

== ENCOUNTER 2021-06-17 07:42 | Observation (INO) | payer BC ==
[~2021-06-17] VITALS: Ht 182.9 cm; Wt 63.6 kg
[2021-06-17] MEDS ORDERED: NS 1,000 ML IV ONE (08:05)
--- NOTE | 2021-06-17 08:29 | REP ---
INDICATION: trauma COMPARISON: 04/06/2021 TECHNIQUE: Axial noncontrast images from the skull base to the thoracic inlet with coronal reformations. This CT examination was performed using the following dose reduction techniques: Automated exposure control, adjustment of mA and/or kv according to the patient's size, and use of iterative reconstruction technique. FINDINGS: Mild stable frontal lobe atrophy remains unchanged. The ventricles and sulci are symmetric. Benjamin-white differentiation is maintained. There is no evidence for acute intracranial hemorrhage, mass/mass effect, pathology or infarction. No extra-axial fluid collection. Calvarium is intact. Paranasal sinuses and mastoid air cells are clear. IMPRESSION: No change from prior examination. No acute intracranial hemorrhage, infarction, or mass/mass effect. <Electronically signed by Devonte Lema > 06/17/21 [id number]
--- NOTE | 2021-06-17 08:30 | REP ---
INDICATION: trauma COMPARISON: 04/06/2021 TECHNIQUE: Axial noncontrast images from the skull base to the thoracic inlet with coronal and sagittal re-formations This CT examination was performed using the following dose reduction techniques: Automated exposure control, adjustment of mA and/or kv according to the patient's size, and use of iterative reconstruction technique. FINDINGS: Normal alignment and lordosis is maintained. Cervical vertebral bodies including transverse processes and spinous processes are intact and there is no evidence for acute fracture / compression injury or subluxation. Spinal canal is patent. Posterior elements are intact. Paravertebral soft tissues are normal. IMPRESSION: Normal noncontrast cervical spine CT. No evidence for acute pathology or trauma/injury. <Electronically signed by Devonte Lema > 06/17/21 [id number]
[2021-06-17 08:39] LABS: HEMATOCRIT 34.1 % (42.0-52.0); HEMOGLOBIN 11.8 g/dl (13.5-17.5); MEAN CORPUSCULAR HEMOGLOBIN 32.2 pg (27.0-33.0); MEAN CORPUSCULAR HGB CONC 34.6 g/dl (32.0-36.5); MEAN CORPUSCULAR VOLUME 92.9 fl (80.0-96.0); PLATELET COUNT, AUTOMATED 257 10^3/uL (150-450); RED BLOOD COUNT 3.67 10^6/uL (4.30-6.10); WHITE BLOOD COUNT 5.6 10^3/uL (4.0-10.0)
[2021-06-17 09:00] LABS: BLOOD UREA NITROGEN 4 MG/DL (7-18); CALCIUM LEVEL 8.2 MG/DL (8.5-10.1); CARBON DIOXIDE LEVEL 29 MEQ/L (21-32); CHLORIDE LEVEL 104 MEQ/L (98-107); CREATININE FOR GFR 0.72 MG/DL (0.70-1.30); GLOMERULAR FILTRATION RATE > 60.0 (>60); GLUCOSE, FASTING 110 MG/DL (70-100); SODIUM LEVEL 142 MEQ/L (136-145)
[2021-06-17] MEDS ORDERED: POTASSIUM CHLORIDE 10MEQ SR TABLET PO ONE ×2 (09:15→12:00)
[2021-06-17 09:19] LABS: AMPHETAMINES LEVEL URINE NEGATIVE (NEGATIVE); BARBITURATES URINE NEGATIVE (NEGATIVE); BENZODIAZEPINES URINE POSITIVE (NEGATIVE); CANNABINOIDS URINE POSITIVE (NEGATIVE); COCAINE METABOLITE URINE NEGATIVE (NEGATIVE); METHADONE URINE NEGATIVE (NEGATIVE); OPIATES URINE NEGATIVE (NEGATIVE); PHENCYCLIDINE URINE NEGATIVE (NEGATIVE)
[2021-06-17] MEDS ORDERED: LORazepam 2 MG TAB PO PRN (11:10)
[2021-06-17 11:12] LABS: RSV AMPLIFICATION NEGATIVE (NEGATIVE)
[2021-06-17] MEDS ORDERED: HOME MED LIST COMPLETE! XX SCH (11:15)
[2021-06-17] MEDS ORDERED: ALPRAZolam 0.5 MG TAB PO PRN (11:25)
[2021-06-17] MEDS ORDERED: SUMAtriptan SUCCINATE 25 MG TAB PO PRN (11:25)
[2021-06-17] MEDS ORDERED: ACETAMINOPHEN 325 MG TAB PO PRN (11:25)
--- NOTE | 2021-06-17 12:36 | HPEPDOC ---
General Date of Admission June 17, 2020 Date of Service: Jun 17, 2021 Chief Complaint The patient is a 40-year-old male admitted with a reason for visit of syncope. History of Present Illness Mr. Reed is a 40-year-old male with hospitalization from 04/06/21 to 04/07/21 for syncope who is here for another syncopal event. Patient tells me that this week, he has been feeling for fatigued than normal. Sunday, he felt tired. Sunday, he tells me he had a temperature of 100.9. Denies sick contacts or recent hospitalizations. He has all three of his COVID vaccinations. Yesterday, he drank 2 beers and smoked marijuana. This morning, he walked outside to vape. He came back in to open a water bottle. The next thing he remembers was waking up on the ground. He was able to get up and call 911. Patient tells me he was alone at home and there were no witnesses. While in the ED, patient was afebrile and nontachycardic. Blood pressure stable. He is doing well at room air. There is no leukocytosis. Hemoglobin is similar to last hemoglobin at 11.8. Labs only significant for hypokalemia at 3. Utox positive for benzodiazepines and cannabinoids, but patient receives prescribed alprazolam. CT head without contrast and CT neck are without acute changes. I saw patient in the ED. He tells me that he is no longer on Reglan, but he is taking trazodone. Trazodone can cause qTC prolongation and patient's qTC is about 480. He did take trazodone last night. Patient denies any nausea, vomiting , or diarrhea. Patient reports that he is eating and drinking well. Patient will be placed in observation for syncope. Home Medications Scheduled Famotidine (Famotidine) 40 Mg Tablet, 40 MG PO BID, (Reported) Metoclopramide HCl (Metoclopramide HCl) 10 Mg Tablet, 10 MG PO TID, (Reported) Multivitamins (Thera M Plus Tablet) 1 Each Tablet, 1 TAB PO DAILY, (Reported) Omeprazole (Omeprazole) 40 Mg Capsule.dr, 40 MG PO BID, (Reported) Scheduled PRN Acetaminophen (Acetaminophen) 325 Mg Tablet, 650 MG PO Q4H PRN for HEADACHE, (Reported) Alprazolam (Alprazolam) 0.5 Mg Tab, 0.5 MG PO BID PRN for ANXIETY/AGITATION, (Reported) Sumatriptan Succinate (Sumatriptan Succinate) 50 Mg Tablet, 50 MG PO DAILY PRN for MIGRAINE, (Reported) Trazodone HCl (Trazodone HCl) 100 Mg Tablet, 100 MG PO QHS PRN for INSOMNIA, (Reported) Allergies Coded Allergies: Peanut (Unverified Allergy, Severe, THROAT SWELLING W/ANY TYPE OF PEANUT PRODUCTS., 06/17/21) Per Pt, THROAT SWELLING W/ANY TYPE OF PEANUT PRODUCTS. codeine (Verified Adverse Reaction, Intermediate, SYNCOPE, 06/17/21) Past Medical History Medical History 1. Lopez's Esophagus 2. Chronic bronchitis 3. ETOH use disorder 4. History of TBI with subdural hematoma, conservatively managed 5. Seizures Surgical History 1. EGD and colonoscopy Family History Father: Lymph node cancer Mother: Patient does not know medical history of mother Social History * Smoker: former Smoker, other (Currently vapes) Alcohol: other (Patient drank 2 beers last night) Drugs: marijuana A-FIB/CHADSVASC A-FIB History Current/History of A-Fib/PAF?: No Review of Systems Constitutional: Reports: Fever, Malaise, Weakness, Fatigue Eyes: Denies: Vision change ENT: Denies: Sore Throat Skin: Denies: Rash Pulmonary: Denies: Dyspnea, Cough Cardiovascular: Denies: Chest Pain Gastrointestinal: Denies: Nausea, Vomiting, Abdominal Pain, Diarrhea Genitourinary: Denies: Dysuria Hematologic: Denies: Bruising Neurological: Denies: Numbness Psych: Reports: Anxiety; Denies: Depression Physical Examination General Exam: Positive: Alert, Cooperative Eye Exam: Positive: EOMI; Negative: Sclera icteric Neck Exam: Positive: Supple Chest Exam: Positive: Clear to auscultation Heart Exam: Positive: Rate Normal, Regular Rhythm Abdomen Exam: Positive: Normal bowel sounds, Soft; Negative: Tenderness Extremity Exam: Negative: Edema Neuro Exam: Positive: Normal Speech, Cranial Nerves 3-12 NL Psych Exam: Positive: Mental status NL, Mood NL Vital Signs Vital Signs Date Time Temp Pulse Resp B/P (MAP) Pulse Ox O2 Delivery O2 Flow Rate FiO2 06/17/21 10:07 134/72 (92) 136/79 (98) 06/17/21 08:04 98.4 74 18 99 Laboratory Data Labs 24H Laboratory Tests 2 06/17/21 08:12: Nucleated Red Blood Cells % (auto) 0.0, Anion Gap 9, Glomerular Filtration Rate > 60.0, Calcium Level 8.2L, Urine Opiates Screen NEGATIVE, Urine Methadone Screen NEGATIVE, Urine Barbiturates Screen NEGATIVE, Urine Phencyclidine Screen NEGATIVE, Urine Amphetamines Screen NEGATIVE, Urine Benzodiazepines Screen POSITIVEH, Urine Cocaine Metabolite Screen NEGATIVE, Urine Cannabinoids Screen POSITIVEH 06/17/21 10:22: Coronavirus (COVID-19)(PCR) NEGATIVE, Influenza Type A (RT-PCR) NEGATIVE, Influenza Type B (RT-PCR) NEGATIVE, Respiratory Syncytial Virus (PCR) NEGATIVE CBC/BMP Laboratory Tests 06/17/21 08:12 Assessment/Plan Mr. Reed is a 40-year-old male with hospitalization from 04/06/21 to 04/07/21 for syncope who is here for another syncopal event. Patient's syncopal event may have been vasal vagal vs arrhythmia from prolonged qTC (Reglan and trazodone) vs polypharmacy with alcohol, alprazolam, and marijuana. Will monitor on telemetry for arrhythmia or reoccurrence. Will D/C Reglan and trazodone. Will order for echocardiogram. Otherwise, patient also reports fatigue. Will check TSH and vitamin B12. Plan / VTE VTE Prophylaxis Ordered?: Yes Plan Plan 1. Syncope -Patient's last syncopal event was March 2021 -Possibly vasal vagal vs qTC/arrhythmia vs polypharmacy (alcohol plus benzo) -Will monitor on telemetry and order echocardiogram -Reglan and trazodone will be held. 2. Alcohol use disorder -[facility] protocol -Thiamine, multivitamin, folic acid 3. Anxiety -Continue as needed alprazolam 4. GERD -Continue famotidine and omeprazole 5. Insomnia -Substitute trazodone with Roserem 6. DVT ppx -Lovenox Disposition: Pending telemetry and echocardiogram BEAR DURÁN DO Jun 17, 2021 12:36
[2021-06-17 12:47] LABS: INR 1.01; PROTHROMBIN TIME 13.7 SECONDS (12.7-14.5)
[2021-06-17 12:48] LABS: PARTIAL THROMBOPLASTIN TIME 26.1 SECONDS (25.9-37.0)
[2021-06-17 13:01] LABS: MAGNESIUM LEVEL 1.4 MG/DL (1.8-2.4); THYROID STIMULATING HORMONE 1.38 uIU/ML (0.358-3.740)
[2021-06-17] MEDS: FAMOTIDINE 20 MG TAB PO SCH ×2 (13:37→21:46)
[2021-06-17] MEDS: THIAMINE 100 MG TAB PO SCH ×2 (13:37→21:46)
[2021-06-17] MEDS: MULTIVITAMINS/MINERALS THERAP 1 TAB PO SCH (13:37)
[2021-06-17] MEDS: FOLIC ACID 1 MG TAB PO SCH (13:38)
[2021-06-17] MEDS: OMEPRAZOLE 20 MG CAP PO SCH ×2 (13:38→21:46)
[2021-06-17 14:00] VITALS: BP 138/83
[2021-06-17 14:12] VITALS: BP 143/94
[2021-06-17 14:36] VITALS: BP_SYST 134; BP_SYST 137; BP_SYST 139; BP_DIAS 88; BP_DIAS 98; BP_DIAS 99
[2021-06-17] MEDS: NICOTINE 21MG/24HR 1 EA TRANSDERMAL TD SCH (15:03)
[2021-06-17] MEDS: MAG SULF 1GM/100ML (MAG RUN) 1 GM in IV 1 EA IV SCH ×4 (15:03→18:58)
[2021-06-17 20:57] LABS: BLOOD UREA NITROGEN 2 MG/DL (7-18); CALCIUM LEVEL 7.8 MG/DL (8.5-10.1); CARBON DIOXIDE LEVEL 30 MEQ/L (21-32); CHLORIDE LEVEL 106 MEQ/L (98-107); CREATININE FOR GFR 0.57 MG/DL (0.70-1.30); GLOMERULAR FILTRATION RATE > 60.0 (>60); GLUCOSE, FASTING 117 MG/DL (70-100); POTASSIUM SERUM 3.1 MEQ/L (3.5-5.1); SODIUM LEVEL 142 MEQ/L (136-145)
[2021-06-17] MEDS ORDERED: RAMELTEON 8 MG TAB (ROZEREM) PO SCH (21:00)
[2021-06-17 22:00] VITALS: BP 132/94
[2021-06-18 05:33] VITALS: BP 129/90
[2021-06-18 05:50] VITALS: BP_SYST 128; BP_SYST 138; BP_SYST 139; BP_DIAS 89; BP_DIAS 95; BP_DIAS 98
[2021-06-18 06:15] LABS: HEMATOCRIT 32.3 % (42.0-52.0); HEMOGLOBIN 11.2 g/dl (13.5-17.5); MEAN CORPUSCULAR HEMOGLOBIN 32.4 pg (27.0-33.0); MEAN CORPUSCULAR HGB CONC 34.7 g/dl (32.0-36.5); MEAN CORPUSCULAR VOLUME 93.4 fl (80.0-96.0); PLATELET COUNT, AUTOMATED 251 10^3/uL (150-450); RED BLOOD COUNT 3.46 10^6/uL (4.30-6.10); WHITE BLOOD COUNT 5.1 10^3/uL (4.0-10.0)
[2021-06-18 06:41] LABS: BLOOD UREA NITROGEN 2 MG/DL (7-18); CARBON DIOXIDE LEVEL 30 MEQ/L (21-32); CHLORIDE LEVEL 105 MEQ/L (98-107); GLOMERULAR FILTRATION RATE > 60.0 (>60); GLUCOSE, FASTING 98 MG/DL (70-100); MAGNESIUM LEVEL 2.1 MG/DL (1.8-2.4); POTASSIUM SERUM 3.3 MEQ/L (3.5-5.1); SODIUM LEVEL 142 MEQ/L (136-145)
--- NOTE | 2021-06-18 07:46 | ECGEPIP ---
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
[2021-06-18] MEDS: FOLIC ACID 1 MG TAB PO SCH (08:22)
[2021-06-18] MEDS: FAMOTIDINE 20 MG TAB PO SCH (08:22)
[2021-06-18] MEDS: MULTIVITAMINS/MINERALS THERAP 1 TAB PO SCH (08:22)
[2021-06-18] MEDS: OMEPRAZOLE 20 MG CAP PO SCH (08:22)
[2021-06-18] MEDS: NICOTINE 21MG/24HR 1 EA TRANSDERMAL TD SCH (08:25)
[2021-06-18] MEDS: THIAMINE 100 MG TAB PO SCH (08:25)
[2021-06-18] MEDS ORDERED: POTASSIUM CHLORIDE 10MEQ SR TABLET PO ONE (09:00)
[2021-06-18] MEDS ORDERED: ENOXAPARIN 40MG/0.4ML SYRINGE (J1650 PER 10MG) SC SCH (09:00)
--- NOTE | 2021-06-18 19:00 | DS.PDOC ---
Discharge Summary General Date of Admission Jun 17, 2021 at 11:08 Date of Discharge Jun 18, 2021 Discharge Summary PROCEDURES PERFORMED DURING STAY: None ADMITTING DIAGNOSES: 1. Syncope 2. Alcohol use disorder 3. Anxiety 4. GERD 5. Insomnia DISCHARGE DIAGNOSES: 1. Syncope 2. Alcohol use disorder 3. Anxiety 4. GERD 5. Insomnia COMPLICATIONS/CHIEF COMPLAINT: Syncope. HISTORY OF PRESENT ILLNESS: Mr. Reed is a 40-year-old male with hospitalization from 04/06/21 to 04/07/21 for syncope who is here for another syncopal event. Patient tells me that this week, he has been feeling for fatigued than normal. Sunday, he felt tired. Sunday, he tells me he had a temperature of 100.9. Denies sick contacts or recent hospitalizations. He has all three of his COVID vaccinations. Yesterday, he drank 2 beers and smoked marijuana. This morning, he walked outside to vape. He came back in to open a water bottle. The next thing he remembers was waking up on the ground. He was able to get up and call 911. Patient tells me he was alone at home and there were no witnesses. While in the ED, patient was afebrile and nontachycardic. Blood pressure stable. He is doing well at room air. There is no leukocytosis. Hemoglobin is similar to last hemoglobin at 11.8. Labs only significant for hypokalemia at 3. Utox positive for benzodiazepines and cannabinoids, but patient receives prescribed alprazolam. CT head without contrast and CT neck are without acute changes. I saw patient in the ED. He tells me that he is no longer on Reglan, but he is taking trazodone. Trazodone can cause qTC prolongation and patient's qTC is about 480. He did take trazodone last night. Patient denies any nausea, vomiting, or diarrhea. Patient reports that he is eating and drinking well. Patient will be placed in observation for syncope. HOSPITAL COURSE: Patient had no events on telemetry overnight. The following morning, he was feeling better. Denied any chest pain or dyspnea. He already had his echocardiogram performed. He noticed that his hands are a little shaky. His last alcoholic drink was 3 days ago. I asked him if he felt ready to quit alcohol. He tells me that he will continue drinking alcohol. I told him that some people will withdrawal when alcohol is abruptly stopped. If he ever decides to quit alcohol, he should let his provider know so they can help him safely quit drinking. He felt ready for home and was discharged home today. DISCHARGE MEDICATIONS: Please see below. ALLERGIES: Please see below. PHYSICAL EXAMINATION ON DISCHARGE: VITAL SIGNS: Please see below. GENERAL: Comfortable, in no apparent distress. HEENT: Head normocephalic/atraumatic, EOMI, sclera clear. NECK: Supple. RESPIRATORY: Lungs clear to auscultation bilaterally, no rales, wheeze or rhonchi. CARDIOVASCULAR: Regular rate and rhythm. ABDOMEN: Soft, nontender, no guarding or rebound tenderness. Normal bowel sounds. MUSCLE SKELETAL: Muscle strength 5/5 in all extremities. NEUROLOGICAL: CN 3-12 grossly intact. PSYCHOLOGICAL: Normal mood and affect LABORATORY DATA: Please see below. IMAGING: Radiologist interpretation CT head without contrast No change from prior examination. No acute intracranial hemorrhage, infarction, or mass/mass effect. CT cervical spine without contrast Normal noncontrast cervical spine CT. No evidence for acute pathology or trauma/injury. PROGNOSIS: Good ACTIVITY: As tolerated. DIET: As tolerated DISCHARGE PLAN: Patient to return home. Recommended that he does not continue his trazodone. Also recommended that he does not drink alcohol and take alprazolam at the same time. He tells me that he is not ready to quit alcohol. I told him that if he ever decides to quit alcohol, to let his PCP know so they can help him safely quit. DISPOSITION: 01 Home, Self-Care. DISCHARGE INSTRUCTIONS: 1. Follow-up with PCP within a week ITEMS TO FOLLOWUP ON ON OUTPATIENT: 1. Echocardiogram Total time spent on discharge planning, discharge summary, and medication reconciliation: 25 minutes TIME SPENT ON DISCHARGE: minutes. Vital Signs/I&Os Vital Signs Date Time Temp Pulse Resp B/P (MAP) Pulse Ox O2 Delivery O2 Flow Rate FiO2 06/18/21 05:50 72 128/89 (102) 83 138/95 (109) 98 139/98 (112) 06/18/21 05:33 98.3 16 98 Room Air I&O- Last 24 Hours up to 6 AM 06/18/21 06:00 Intake Total 2625 ml Output Total 100 ml Balance 2525 ml Laboratory Data Labs 24H Laboratory Tests 2 06/17/21 20:18: Anion Gap 6L, Glomerular Filtration Rate > 60.0, Calcium Level 7.8L 06/18/21 05:22: Anion Gap 7L, Glomerular Filtration Rate > 60.0, Calcium Level 8.0L, Nucleated Red Blood Cells % (auto) 0.0, Magnesium Level 2.1 CBC/BMP Laboratory Tests 06/17/21 20:18 06/18/21 05:22 Discharge Medications Scheduled Famotidine (Famotidine) 40 Mg Tablet, 40 MG PO BID, (Reported) Multivitamins (Thera M Plus Tablet) 1 Each Tablet, 1 TAB PO DAILY, (Reported) Omeprazole (Omeprazole) 40 Mg Capsule.dr, 40 MG PO BID, (Reported) Scheduled PRN Acetaminophen (Acetaminophen) 325 Mg Tablet, 650 MG PO Q4H PRN for HEADACHE, (Reported) Alprazolam (Alprazolam) 0.5 Mg Tab, 0.5 MG PO BID PRN for ANXIETY/AGITATION, (Reported) Sumatriptan Succinate (Sumatriptan Succinate) 50 Mg Tablet, 50 MG PO DAILY PRN for MIGRAINE, (Reported) Allergies Coded Allergies: Peanut (Unverified Allergy, Severe, THROAT SWELLING W/ANY TYPE OF PEANUT PRODUCTS., 06/17/21) Per Pt, THROAT SWELLING W/ANY TYPE OF PEANUT PRODUCTS. codeine (Verified Adverse Reaction, Intermediate, SYNCOPE, 06/17/21) BEAR DURÁN DO Jun 18, 2021 19:00
--- NOTE | 2021-06-19 11:29 | ECHO ---
ECHOCARDIOGRAM DATE OF PROCEDURE: 06/17/2021 Age: 40 Gender: Male Height: 183 cm Weight: 64 kg. REFERRING PHYSICIAN: Fadi Kim MD INDICATION: Syncope MEASUREMENTS: 2-D measurement: IVS 0.7 cm LV 4.0 cm LVPW 0.8 cm LA 2.4 cm Aorta 3.4 cm Doppler measurement: Peak velocity across the aortic suzetet 1.16 m/s Peak velocity across the LVOT 1.14 m/s Mitral E 0.78, mitral A 0.47 with a ratio of 1.6 2-D COMMENTS: 1. Normal left ventricular size, wall thickness and normal global left ventricular systolic function. Estimated left ventricular systolic ejection fraction is 60 to 65%. 2. Normal left atrium, normal right atrium and left ventricle. 3. The atrial septum appears to be normal without evidence of defect or shunt. 4. Normal aortic root. 5. No pericardial effusion seen. 6. The aortic valve, mitral valve, tricuspid valve and pulmonic valve appear to be normal. The proximal pulmonary artery branches were not well visualized. 7. The inferior vena cava was not visualized. DOPPLER: It detects trace aortic regurgitation, trace mitral regurgitation, trace tricuspid regurgitation and trace to mild pulmonic regurgitation. Assessment of the left ventricular diastolic function appears to be normal. Pulmonary artery systolic pressure appears to be normal. IMPRESSION: 1. Normal global left ventricular systolic and diastolic function. 2. Trace aortic regurgitation. 3. Trace mitral regurgitation. 4. Trace to mild pulmonic regurgitation. 5. No findings in this transthoracic echocardiogram that could explain the syncope episode.
== END 2021-06-18 08:50 | disposition home or self-care (01) ==
LOC: EDBD 07:42 → M ED 07:42 → M ED INP 11:08 → ENRESERV 12:35 → M MSPAV 13:17
PROVIDERS: ADMIT Internal Medicine; ATTEND Internal Medicine
DX: R55 Syncope and collapse (principal); F10.10 Alcohol abuse, uncomplicated; F41.9 Anxiety disorder, unspecified; K21.9 Gastro-esophageal reflux disease without esophagitis; G47.00 Insomnia, unspecified; Z91.010 Allergy to peanuts; Z88.5 Allergy status to narcotic agent; F17.290 Nicotine dependence, other tobacco product, uncomplicated; F12.10 Cannabis abuse, uncomplicated; Z79.01 Long term (current) use of anticoagulants; Z79.899 Other long term (current) drug therapy; Z87.820 Personal history of traumatic brain injury
CPT/HCPCS: 36415; 70450; 72125; 80048; 80307; 82607; 83735; 84443; 85027; 85610; 85730; 87631; 93005; 93041; 93306; 96361; 96374; 97161; 97165; 97535; 99285; J3475

== ENCOUNTER 2021-06-19 19:49 | Emergency (ER) | payer BC ==
[~2021-06-19] VITALS: Ht 182.9 cm; Wt 63.6 kg
[2021-06-19] MEDS ORDERED: KETOROLAC 30 MG/ML 1ML VIAL IV ONE (20:10)
[2021-06-19] MEDS ORDERED: NS 1,000 ML IV ONE (20:10)
[2021-06-19] MEDS ORDERED: ISOVUE-370 76% 100ML VIAL As Ordered ONE (20:29)
[2021-06-19 20:50] LABS: BASO % 0.6 % (0.0-1.0); EOS % 0.5 % (0.0-3.0); HEMATOCRIT 33.4 % (42.0-52.0); HEMOGLOBIN 11.1 g/dl (13.5-17.5); LYMPH # 2.5 10^3/uL (1.5-5.0); LYMPH % 39.1 % (24.0-44.0); MEAN CORPUSCULAR HEMOGLOBIN 31.9 pg (27.0-33.0); MEAN CORPUSCULAR HGB CONC 33.2 g/dl (32.0-36.5); MONO # 0.6 10^3/uL (0.0-0.8); MONO % 9.9 % (2.0-8.0); NEUTROPHILS # 3.2 10^3/uL (1.5-8.5); NEUTROPHILS % 49.6 % (36.0-66.0); PLATELET COUNT, AUTOMATED 242 10^3/uL (150-450); RED BLOOD COUNT 3.48 10^6/uL (4.30-6.10); WHITE BLOOD COUNT 6.5 10^3/uL (4.0-10.0)
[2021-06-19 21:08] LABS: CK-MB VALUE MASS < 1.0 NG/ML (<3.6); CPK CREATINE PHOSPHOKINASE 147 U/L (39-308); MB/CK RELATIVE INDEX 0.68 (< OR =4)
[2021-06-19 21:13] LABS: ALBUMIN 2.3 GM/DL (3.2-5.2); ALT/SGPT 49 U/L (12-78); BILIRUBIN,DIRECT 0.2 MG/DL (0.0-0.2); BILIRUBIN,TOTAL 0.2 MG/DL (0.2-1.0); BLOOD UREA NITROGEN 3 MG/DL (7-18); CALCIUM LEVEL 7.3 MG/DL (8.5-10.1); CARBON DIOXIDE LEVEL 26 MEQ/L (21-32); CHLORIDE LEVEL 111 MEQ/L (98-107); CREATININE FOR GFR 0.55 MG/DL (0.70-1.30); ETHYL ALCOHOL (ETHANOL) 0.152 % (0.000-0.010); GLOMERULAR FILTRATION RATE > 60.0 (>60); GLUCOSE, FASTING 98 MG/DL (70-100); LIPASE 179 U/L (73-393); POTASSIUM SERUM 3.6 MEQ/L (3.5-5.1); SODIUM LEVEL 147 MEQ/L (136-145); THYROID STIMULATING HORMONE 0.695 uIU/ML (0.358-3.740); TOTAL PROTEIN 5.5 GM/DL (6.4-8.2)
--- NOTE | 2021-06-19 21:23 | REPVR ---
PROCEDURE INFORMATION: Exam: XR Chest Exam date and time: 06/19/2021 8:20 PM Age: 40 years old Clinical indication: Pain; Other: Not specified; Additional info: Chest pain TECHNIQUE: Imaging protocol: XR of the chest. Views: 1 view. COMPARISON: CR PORTABLE CHEST X-RAY 06/15/2021 4:10 PM FINDINGS: Lungs: Unremarkable. No consolidation. Pleural spaces: Unremarkable. No pleural effusion. No pneumothorax. Heart/Mediastinum: Unremarkable. No cardiomegaly. Bones/joints: Unremarkable. IMPRESSION: No acute findings. Electronically signed by: Geovany Jara On 06/19/2021 21:22:39 PM
--- NOTE | 2021-06-19 22:09 | REPVR ---
PROCEDURE INFORMATION: Exam: CTA Chest With Contrast Exam date and time: 06/19/2021 9:44 PM Age: 40 years old Clinical indication: Chest wall pain; Additional info: Chest pain R/O pe TECHNIQUE: Imaging protocol: Computed tomographic angiography of the chest with contrast. 3D rendering (Not supervised by radiologist): MIP and/or 3D reconstructed images were created by the technologist. Radiation optimization: All CT scans at this facility use at least one of these dose optimization techniques: automated exposure control; mA and/or kV adjustment per patient size (includes targeted exams where dose is matched to clinical indication); or iterative reconstruction. Contrast material: ISO 370; Contrast volume: 100 ml; Contrast route: INTRAVENOUS (IV); COMPARISON: CR PORTABLE CHEST X-RAY 06/19/2021 8:13 PM FINDINGS: Pulmonary arteries: There are no pulmonary emboli. Aorta: There is no aortic dissection or aneurysm. Lungs: Paraseptal emphysematous changes in both upper lobes. Lungs otherwise clear. Well inflated lungs with flattened diaphragmatic contours and increased retrosternal airspace consistent with COPD. Pleural spaces: Unremarkable. No pneumothorax. No pleural effusion. Heart: Unremarkable. No cardiomegaly. No pericardial effusion. Lymph nodes: Unremarkable. No enlarged lymph nodes. Bones/joints: Unremarkable. No acute fracture. Soft tissues: Unremarkable. IMPRESSION: 1. There is no aortic dissection or aneurysm. 2. COPD. 3. There are no pulmonary emboli. 4. No acute pulmonary parenchymal infiltrates. Electronically signed by: Geovany Jara On 06/19/2021 22:09:04 PM
[2021-06-19 22:42] LABS: CK-MB VALUE MASS < 1.0 NG/ML (<3.6); CPK CREATINE PHOSPHOKINASE 151 U/L (39-308); MB/CK RELATIVE INDEX 0.66 (< OR =4)
[2021-06-19 23:16] VITALS: BP 121/84
--- NOTE | 2021-06-20 06:21 | ECGEPIP ---
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
== END 2021-06-19 23:25 | disposition home or self-care (01) ==
LOC: EDBD 19:49 → M ED 19:49
DX: R07.89 Other chest pain (principal); J44.9 Chronic obstructive pulmonary disease, unspecified; F41.9 Anxiety disorder, unspecified; K22.70 Barrett's esophagus without dysplasia; Z86.79 Personal history of other diseases of the circulatory system; F17.290 Nicotine dependence, other tobacco product, uncomplicated; F12.10 Cannabis abuse, uncomplicated; Z79.899 Other long term (current) drug therapy; Z91.040 Latex allergy status; Z88.5 Allergy status to narcotic agent
CPT/HCPCS: 71045; 71275; 80047; 80048; 80076; 82077; 82550; 82553; 83690; 84443; 85025; 93005; 93041; 94760; 96361; 96374; 99285; J1885; Q9967

== ENCOUNTER 2021-07-13 08:00 | Outpatient (RCR) | payer BC ==
[~2021-07-13 08:00] MED LIST changes: -MONT10TA10 PO; +MONT10TA97 PO; -OMEP-221 PO; +OMEP40CA5 PO
== END 2021-07-18 ==
LOC: M OUTALCOH 08:00
PROVIDERS: ATTEND Psychiatry & Neurology Psychiatry
DX: F10.20 Alcohol dependence, uncomplicated (principal); F17.200 Nicotine dependence, unspecified, uncomplicated

== ENCOUNTER 2021-08-10 10:17 | Outpatient (RCR) | payer BC | END 2021-08-15 | LOC: M OUTALCOH 10:17 | PROVIDERS: ATTEND Psychiatry & Neurology Psychiatry | DX: F10.20 Alcohol dependence, uncomplicated (principal); F17.200 Nicotine dependence, unspecified, uncomplicated ==

== ENCOUNTER 2021-09-14 10:24 | Outpatient (RCR) | payer BC | END 2021-09-15 | LOC: M OUTALCOH 10:24 | PROVIDERS: ATTEND Psychiatry & Neurology Psychiatry | DX: F10.20 Alcohol dependence, uncomplicated (principal); F17.200 Nicotine dependence, unspecified, uncomplicated ==

== ENCOUNTER 2021-10-05 15:00 | Outpatient (RCR) | payer BC | END 2021-10-15 | LOC: M OUTALCOH 15:00 | PROVIDERS: ATTEND Psychiatry & Neurology Psychiatry | DX: F10.20 Alcohol dependence, uncomplicated (principal); F17.200 Nicotine dependence, unspecified, uncomplicated ==

== ENCOUNTER 2021-11-02 09:24 | Outpatient (RCR) | payer BC | END 2021-11-15 | LOC: M OUTALCOH 09:24 | PROVIDERS: ATTEND Psychiatry & Neurology Psychiatry | DX: F10.20 Alcohol dependence, uncomplicated (principal); F17.200 Nicotine dependence, unspecified, uncomplicated ==

== ENCOUNTER → 2022-01-08 | Outpatient (CLI) | payer BC ==
[~2022-01-08] MED LIST changes: +AMIT10TA7 PO; +CLAR1TAB13 PO; +MIRT-10 PO; +PROM12.56 PO
== END ==
LOC: M LABSMTC 09:34
PROVIDERS: ATTEND Anesthesiology
DX: Z01.812 Encounter for preprocedural laboratory examination (principal); Z20.822 Contact with and (suspected) exposure to COVID-19

== ENCOUNTER 2022-01-11 10:18 | Day surgery (SDC) | payer BC ==
[~2022-01-11] VITALS: Ht 180.3 cm; Wt 73.0 kg
[~2022-01-11 10:18] MED LIST changes: +NS 1,000 ML IV ONE
[2022-01-11] MEDS ORDERED: LIDOCAINE 2% 100MG/5ML SDV (FOR ANES.) As Ordered ONE (10:53)
[2022-01-11] MEDS ORDERED: propofoL 200 MG/20 ML VIAL As Ordered ONE (10:53)
[2022-01-11] MEDS ORDERED: fentaNYL 100 MCG/2 ML INJECTION As Ordered ONE (10:55)
[2022-01-11 11:59] VITALS: BP 130/79
== END 2022-01-11 12:00 | disposition home or self-care (01) ==
LOC: M OPP 10:18
PROVIDERS: ATTEND Surgery
DX: K22.4 Dyskinesia of esophagus (principal); K29.60 Other gastritis without bleeding; G43.909 Migraine, unspecified, not intractable, without status migrainosus; J44.9 Chronic obstructive pulmonary disease, unspecified; F41.8 Other specified anxiety disorders; M54.50 Low back pain, unspecified; F17.200 Nicotine dependence, unspecified, uncomplicated; Z87.19 Personal history of other diseases of the digestive system; Z79.1 Long term (current) use of non-steroidal anti-inflammatories (NSAID); Z79.899 Other long term (current) drug therapy; Z88.5 Allergy status to narcotic agent; Z91.011 Allergy to milk products
CPT/HCPCS: 43239; 88305; J3010

== ENCOUNTER → 2022-01-18 | Outpatient (CLI) | payer BC ==
[~2022-01-18] MED LIST changes: +E-Z-GAS II EFFERVESCENT PACKET (SODIUM BICARB./CITRIC ACID/SIMETHICONE) As Ordered ONE; +E-Z-HD 98% w/w 340GM SUSP BTL As Ordered ONE; +E-Z-PAQUE 96% w/w SUSP 176GM BTL As Ordered ONE; -NS 1,000 ML IV ONE
== END ==
LOC: M RAD 08:08
PROVIDERS: ATTEND Surgery
DX: K21.9 Gastro-esophageal reflux disease without esophagitis (principal); K22.70 Barrett's esophagus without dysplasia

== ENCOUNTER → 2022-06-27 | Outpatient (REF) | payer BC ==
[~2022-06-27] MED LIST changes: -E-Z-GAS II EFFERVESCENT PACKET (SODIUM BICARB./CITRIC ACID/SIMETHICONE) As Ordered ONE; -E-Z-HD 98% w/w 340GM SUSP BTL As Ordered ONE; -E-Z-PAQUE 96% w/w SUSP 176GM BTL As Ordered ONE
== END ==
LOC: M LAB REF 12:08
PROVIDERS: ATTEND Physician Assistant
DX: B34.9 Viral infection, unspecified (principal)

== ENCOUNTER → 2022-07-12 | Outpatient (REF) | payer BC | LOC: M SFHCDERM 13:55 | PROVIDERS: ATTEND Physician Assistant | DX: D49.2 Neoplasm of unspecified behavior of bone, soft tissue, and skin (principal) ==

== ENCOUNTER → 2022-08-02 | Outpatient (REF) | payer BC ==
[2022-08-02 21:09] LABS: PERCENT SATURATION 37.9 % (19.7-50.0)
[2022-08-02 21:10] LABS: FERRITIN 50.7 NG/ML (10.5-307.3)
== END ==
LOC: M LAB REF 11:03
PROVIDERS: ATTEND Internal Medicine
DX: G25.81 Restless legs syndrome (principal)

== ENCOUNTER → 2023-04-25 | Outpatient (CLI) | payer BC | LOC: M PLAIMG 08:58 | PROVIDERS: ATTEND Nurse Practitioner Family | DX: J01.00 Acute maxillary sinusitis, unspecified (principal); J34.1 Cyst and mucocele of nose and nasal sinus ==

== ENCOUNTER → 2023-05-16 | Outpatient (REF) | payer BC ==
[2023-05-16 12:58] LABS: BASO # 0.1 10^3/uL (0.0-0.2); BASO % 0.9 % (0.0-1.0); EOS # 0.1 10^3/uL (0.0-0.5); HEMATOCRIT 47.8 % (42.0-52.0); HEMOGLOBIN 15.6 g/dl (13.5-17.5); LYMPH # 2.5 10^3/uL (1.5-5.0); LYMPH % 37.7 % (24.0-44.0); MEAN CORPUSCULAR HEMOGLOBIN 30.3 pg (27.0-33.0); MEAN CORPUSCULAR HGB CONC 32.6 g/dl (32.0-36.5); MEAN CORPUSCULAR VOLUME 92.8 fl (80.0-96.0); MONO # 0.8 10^3/uL (0.0-0.8); MONO % 11.6 % (2.0-8.0); NEUTROPHILS # 3.1 10^3/uL (1.5-8.5); NEUTROPHILS % 47.5 % (36.0-66.0); PLATELET COUNT, AUTOMATED 319 10^3/uL (150-450); RED BLOOD COUNT 5.15 10^6/uL (4.30-6.10); WHITE BLOOD COUNT 6.6 10^3/uL (4.0-10.0)
[2023-05-16 13:05] LABS: ALBUMIN 4.1 G/DL (3.2-5.2); ALKALINE PHOSPHATASE 114 U/L (46-116); ALT/SGPT 28 U/L (7.0-40); AST/SGOT 16 U/L (<34); BILIRUBIN,TOTAL 0.3 MG/DL (0.3-1.2); BLOOD UREA NITROGEN 15 MG/DL (9-23); CALCIUM LEVEL 9.1 MG/DL (8.5-10.1); CARBON DIOXIDE LEVEL 31 MMOL/L (20-31); CHLORIDE LEVEL 103 MMOL/L (98-107); CHOLESTEROL LEVEL 192 MG/DL (<200); CHOLESTEROL RISK RATIO 3.58 (<5); CREATININE FOR GFR 0.86 MG/DL (0.70-1.30); GLOMERULAR FILTRATION RATE > 60.0 (>60); GLUCOSE, FASTING 91 MG/DL (60-100); HDL CHOLESTEROL 53.5 MG/DL (>40); LDL CHOLESTEROL 100.1 MG/DL (<100); NON-HDL-C 138.5 MG/DL; POTASSIUM SERUM 5.4 MMOL/L (3.5-5.1); SODIUM LEVEL 138 MMOL/L (136-145); TOTAL PROTEIN 7.3 G/DL (5.7-8.2); TRIGLYCERIDES LEVEL 192 MG/DL (<150)
== END ==
LOC: M LAB REF 11:46
PROVIDERS: ATTEND Internal Medicine
DX: E78.5 Hyperlipidemia, unspecified (principal); F41.1 Generalized anxiety disorder

== ENCOUNTER → 2023-05-23 | Outpatient (REF) | payer BC ==
[2023-05-23 13:22] LABS: BLOOD UREA NITROGEN 17 MG/DL (9-23); CALCIUM LEVEL 9.1 MG/DL (8.5-10.1); CARBON DIOXIDE LEVEL 31 MMOL/L (20-31); CHLORIDE LEVEL 104 MMOL/L (98-107); CREATININE FOR GFR 0.93 MG/DL (0.70-1.30); GLOMERULAR FILTRATION RATE > 60.0 (>60); GLUCOSE, FASTING 92 MG/DL (60-100); MAGNESIUM LEVEL 1.8 MG/DL (1.8-2.4); POTASSIUM SERUM 4.1 MMOL/L (3.5-5.1); SODIUM LEVEL 141 MMOL/L (136-145)
== END ==
LOC: M LAB REF 12:24
PROVIDERS: ATTEND Internal Medicine
DX: E78.5 Hyperlipidemia, unspecified (principal); K21.9 Gastro-esophageal reflux disease without esophagitis; F17.210 Nicotine dependence, cigarettes, uncomplicated

== ENCOUNTER → 2023-08-22 | Outpatient (REF) | payer BC ==
[2023-08-22 17:24] LABS: BASO # 0.1 10^3/uL (0.0-0.2); BASO % 0.7 % (0.0-1.0); EOS # 0.1 10^3/uL (0.0-0.5); HEMATOCRIT 43.1 % (42.0-52.0); HEMOGLOBIN 14.2 g/dl (13.5-17.5); LYMPH # 3.1 10^3/uL (1.5-5.0); LYMPH % 45.4 % (24.0-44.0); MEAN CORPUSCULAR HEMOGLOBIN 30.4 pg (27.0-33.0); MEAN CORPUSCULAR HGB CONC 32.9 g/dl (32.0-36.5); MEAN CORPUSCULAR VOLUME 92.3 fl (80.0-96.0); MONO # 0.6 10^3/uL (0.0-0.8); MONO % 8.1 % (2.0-8.0); NEUTROPHILS # 3.1 10^3/uL (1.5-8.5); NEUTROPHILS % 44.7 % (36.0-66.0); PLATELET COUNT, AUTOMATED 317 10^3/uL (150-450); RED BLOOD COUNT 4.67 10^6/uL (4.30-6.10); WHITE BLOOD COUNT 6.9 10^3/uL (4.0-10.0)
[2023-08-22 17:51] LABS: ALBUMIN 4.1 G/DL (3.2-5.2); ALKALINE PHOSPHATASE 87 U/L (46-116); ALT/SGPT 20 U/L (7.0-40); AST/SGOT 9 U/L (<34); BILIRUBIN,TOTAL 0.4 MG/DL (0.3-1.2); BLOOD UREA NITROGEN 13 MG/DL (9-23); CALCIUM LEVEL 8.8 MG/DL (8.5-10.1); CARBON DIOXIDE LEVEL 32 MMOL/L (20-31); CHLORIDE LEVEL 105 MMOL/L (98-107); CREATININE FOR GFR 1.04 MG/DL (0.70-1.30); GLOMERULAR FILTRATION RATE > 60.0 (>60); GLUCOSE, FASTING 85 MG/DL (60-100); POTASSIUM SERUM 4.5 MMOL/L (3.5-5.1); SODIUM LEVEL 139 MMOL/L (136-145); TOTAL PROTEIN 6.8 G/DL (5.7-8.2)
== END ==
LOC: M LAB REF 16:31
PROVIDERS: ATTEND Internal Medicine
DX: K21.9 Gastro-esophageal reflux disease without esophagitis (principal); G25.81 Restless legs syndrome; K22.70 Barrett's esophagus without dysplasia

== ENCOUNTER → 2023-11-07 | Outpatient (REF) | payer BC ==
[2023-11-07 13:10] LABS: BASO # 0.1 10^3/uL (0.0-0.2); BASO % 0.9 % (0.0-1.0); EOS # 0.1 10^3/uL (0.0-0.5); EOS % 1.1 % (0.0-3.0); HEMATOCRIT 47.2 % (42.0-52.0); HEMOGLOBIN 15.5 g/dl (13.5-17.5); LYMPH # 2.3 10^3/uL (1.5-5.0); LYMPH % 35.3 % (24.0-44.0); MEAN CORPUSCULAR HEMOGLOBIN 30.8 pg (27.0-33.0); MEAN CORPUSCULAR HGB CONC 32.8 g/dl (32.0-36.5); MEAN CORPUSCULAR VOLUME 93.8 fl (80.0-96.0); MONO # 0.7 10^3/uL (0.0-0.8); MONO % 10.9 % (2.0-8.0); NEUTROPHILS # 3.4 10^3/uL (1.5-8.5); NEUTROPHILS % 51.5 % (36.0-66.0); PLATELET COUNT, AUTOMATED 278 10^3/uL (150-450); RED BLOOD COUNT 5.03 10^6/uL (4.30-6.10); WHITE BLOOD COUNT 6.5 10^3/uL (4.0-10.0)
[2023-11-07 13:19] LABS: INR 0.97; PROTHROMBIN TIME 12.6 SECONDS (12.5-14.5)
[2023-11-07 17:00] LABS: ALBUMIN 3.9 G/DL (3.2-5.2); ALKALINE PHOSPHATASE 93 U/L (46-116); ALT/SGPT 25 U/L (7.0-40); AST/SGOT 12 U/L (<34); BILIRUBIN,TOTAL 0.4 MG/DL (0.3-1.2); BLOOD UREA NITROGEN 17 MG/DL (9-23); CALCIUM LEVEL 9.2 MG/DL (8.5-10.1); CARBON DIOXIDE LEVEL 28 MMOL/L (20-31); CHLORIDE LEVEL 109 MMOL/L (98-107); CREATININE FOR GFR 0.93 MG/DL (0.70-1.30); GLOMERULAR FILTRATION RATE > 60.0 (>60); GLUCOSE, FASTING 93 MG/DL (60-100); POTASSIUM SERUM 4.9 MMOL/L (3.5-5.1); SODIUM LEVEL 140 MMOL/L (136-145); THYROID STIMULATING HORMONE 0.574 uIU/ML (0.55-4.78); TOTAL PROTEIN 6.9 G/DL (5.7-8.2)
[2023-11-07 17:01] LABS: FREE T4 1.02 NG/DL (0.89-1.76)
== END ==
LOC: M LAB REF 12:12
PROVIDERS: ATTEND Internal Medicine
DX: K70.0 Alcoholic fatty liver (principal); E78.5 Hyperlipidemia, unspecified; F33.42 Major depressive disorder, recurrent, in full remission; G47.00 Insomnia, unspecified

== ENCOUNTER → 2023-11-14 | Outpatient (CLI) | payer BC | LOC: M RAD 13:16 | PROVIDERS: ATTEND Internal Medicine | DX: E05.90 Thyrotoxicosis, unspecified without thyrotoxic crisis or storm (principal); R13.10 Dysphagia, unspecified ==